=== PATIENT | male | born 1960 | race Caucasian/White ===

== ENCOUNTER 2023-01-06 14:41 | Observation (INO) ==
[2023-01-06] MEDS ORDERED: MoRPHine SULFATE 2 MG/ML CARP IV STA (15:26)
[2023-01-06] MEDS ORDERED: ONDANSETRON INJ 2 MG/ML 2 ML VIAL IV STA (15:26)
--- NOTE | 2023-01-06 15:30 | Emergency Department Note ---
History of Present Illness General Chief complaint: Rib Injury/Pain Stated complaint: LUNG PROBLEMS Time Seen by Provider: 01/06/23 15:15 History of Present Illness Maximum Pain Intensity: 6 This is a 62-year-old male that presents to the emergency department via officer lieutenant escort x2 with complaints of "left rib pain". Patient notes that last evening around 10:30 PM he tripped on a ladder causing him to fall forward. He notes that he struck the left side of the ribs against the toilet and the head against the sink. He notes left-sided rib pain since that time. Patient denies loss of consciousness. He notes pain with a deep breath to the left flank region. Current pain 03/26. He denies any blood in the stool or urine. He also since that time notes a minor headache and some neck pain. Home Medications Medication Instructions Recorded Confirmed Type aspirin 81 mg capsule 81 mg PO DAILY 01/03/23 01/06/23 History ciclesonide 80 mcg/actuation 2 puff inhalation BID 01/03/23 01/06/23 History aerosol inhaler (Alvesco) divalproex 500 mg tablet,delayed 500 mg PO DAILY 01/03/23 01/06/23 History release duloxetine 30 mg capsule,delayed 30 mg PO DAILY 01/03/23 01/06/23 History release metformin 1,000 mg tablet 1,000 mg PO BID 01/03/23 01/06/23 History tamsulosin 0.4 mg capsule (Flomax) 0.4 mg PO DAILY 01/03/23 01/06/23 History albuterol sulfate 90 mcg/actuation 2 puff inhalation QID PRN 01/06/23 01/06/23 History aerosol inhaler Shortness Of Breath Or Wheezing atorvastatin 20 mg tablet 20 mg PO DAILY 01/06/23 01/06/23 History Allergies Allergy/AdvReac Type Severity Reaction Status Date / Time No Known Allergies Allergy Verified 01/06/23 17:15 Past Med/Surg History Medical History Antisocial personality disorder BPH w/o urinary obs/LUTS Mild intermittent asthma Type 2 diabetes mellitus Xerosis cutis Social History Smoking Status: Never smoker Feels Safe at Home: Yes Review of Systems A total of 10 systems reviewed and were otherwise negative Physical Exam Vital Signs Vital Signs - 24 hr 01/06/23 14:44 01/06/23 17:14 Temperature 37.0 C Temperature Source Temporal Artery Scan Pulse Rate 75 Pulse Rate [Finger] 70 Respiratory Rate 18 16 Respiratory Effort / Characteristics Non-Labored Spontaneous Respiratory Depth Normal Normal Blood Pressure 120/76 Blood Pressure [Right Arm] 111/74 Blood Pressure Mean 90 Blood Pressure Mean [Right Arm] 86 Blood Pressure Position Sitting Pulse Oximetry 95 93 Oxygen Delivery Method Room Air Room Air Sepsis Recent Fever Within 48 Hours No Sepsis New/Unexplained Change in Mental Status No Sepsis Action Taken by Nursing No Action Required VITAL SIGNS - Vital signs and triage nursing notes were reviewed. Stable and afebrile. GENERAL -62-year-old male appearing his stated age. Communicates well with provider and answers questions appropriately. SKIN - Gross examination of the entire body surface demonstrates no lacerations to the body surface. HEAD - Normocephalic, Atraumatic. No Rueda's Sign or Raccoon's Eyes. No depressed skull fractures palpable. EYES - PERRL with EOMI bilaterally. Without subconjunctival hemorrhage. Palpebral conjunctiva pink and moist with no injection. EARS - No deformities of external structures noted on gross examination bilaterally. No hemotympanum present. No tympanic perforation noted. Handle of malleus, umbo, cone of light, pars tensa/flaccid all easily visualized. NOSE - Midline and without cyanosis. No epistaxis or clear watery discharge noted. Septum midline without deviation. No septal hematoma noted. No overlying ecchymosis noted. MOUTH/OROPHARYNX - Without perioral cyanosis. Tongue midline with equal elevation of palate bilaterally. No blood noted in the oropharynx. No tonsillar hypertrophy, erythema, or exudates noted. No dental fractures noted. NECK - No tenderness to palpation over the cervical spinous processes. No cervi jennifer paraspinal muscle tenderness noted. LUNGS - Chest wall symmetric without accessory muscle use, intercostals retractions, or central cyanosis. No flail chest or depressed fractures noted. Left lateral rib tenderness. No crepitus. Normal vesicular breath sounds CTA B/L. No wheezes, rales, or rhonchi appreciated. CARDIAC - RRR with S1/S2. No murmur, rubs, or gallops appreciated. ABDOMEN - Abdominal contour normal and without pulsations or visible masses. BS normoactive all four quadrants. No rebound tenderness or guarding noted. Negative Buffalo's or Sainz Llanos's Signs. No tenderness, palpable masses, hepatosplenomegaly, or ascites noted. EXTREMITIES - No gross deformities noted of the extremities. No tenderness to palpation of the extremities. +5/5 strength noted in UE/LE bilaterally. NEUROLOGIC - Cranial nerves II through XII grossly intact. PSYCH - A&O, and cooperates fully with examiner. Pt is very pleasant and interacts well with examiner. Course Administered Medications Acetaminophen (Acetaminophen 325 Mg Tab) 650 mg PO Q6H [facility] Stop: 02/05/23 18:49 Last Admin: 01/06/23 19:10 Dose: 650 mg Documented By: MAINE Insulin Aspart (Insulin Aspart Per Unit Charge) 0 units SC ACHS ISAIAH Stop: 02/05/23 20:59 Last Admin: 01/06/23 20:12 Dose: 2 units Documented By: MAINE Co-signed By: FREDERICK Insulin Glargine (Lantus Per Unit Charge) 5 units SQ BID ISAIAH Stop: 02/05/23 20:59 Last Admin: 01/06/23 20:13 Dose: 5 units Documented By: MAINE Co-signed By: FREDERICK Lidocaine (Lidocaine 5% 1 Patch) 1 patch TD QAM [facility] Stop: 02/05/23 18:44 Last Admin: 01/06/23 19:10 Dose: 1 patch Documented By: MAINE Miscellaneous (Remove Lidoderm Patch) 1 each N/A DAILY@2100 [facility] Stop: 02/05/23 20:59 Last Admin: 01/06/23 20:02 Dose: Not Given Documented By: MAINE Morphine Sulfate (Morphine Sulfate 2 Mg/Ml Carp) 2 mg IV Q4H PRN PRN Reason: Pain (pain 5,6,7+) Stop: 01/20/23 18:44 Last Admin: 01/06/23 21:42 Dose: 2 mg Documented By: RLP Discontinued Medications Morphine Sulfate (Morphine Sulfate 2 Mg/Ml Carp) 2 mg IV NOW STA Stop: 01/06/23 15:27 Last Admin: 01/06/23 15:53 Dose: 2 mg Documented By: ROSEANN Ondansetron HCl (Ondansetron Inj 2 Mg/Ml 2 Ml Vial) 4 mg IV NOW STA Stop: 01/06/23 15:27 Last Admin: 01/06/23 15:53 Dose: 4 mg Documented By: ROSEANN Medical Decision Making Laboratory Data 01/06/23 15:39 01/06/23 15:39 Lab Results 01/06/23 01/06/23 01/06/23 Range/Units 15:39 15:39 15:48 WBC 6.26 (4.8-10.8) K/ul RBC 4.64 L (4.70-6.10) M/uL Hgb 14.4 (14.0-18.0) g/dl POC Hgb 14.6 (14.0-18.0) g/dl Hct 40.9 L (42.0-52.0) % POC Hct 43 (42-52) % MCV 88.1 (80.0-100.0) fL MCH 31.0 (25.0-34.0) pg MCHC 35.2 (32.0-36.0) g/dL RDW Std Deviation 43.9 (36.4-46.3) fL RDW Coeff of Ingrid 13.7 (11.5-14.5) % Plt Count 145 (130-400) K/uL MPV 10.5 (9.4-12.4) fL Immature Gran % (Auto) 0.3 % Neut % (Auto) 60.1 % Lymph % (Auto) 24.6 % Bell % (Auto) 13.6 % Eos % (Auto) 0.8 % Baso % (Auto) 0.6 % Neut # (Auto) 3.76 (1.40-6.50) K/uL Lymph # (Auto) 1.54 (1.2-3.4) K/uL Bell # (Auto) 0.85 H (0.11-0.59) K/uL Eos # (Auto) 0.05 (0-0.50) K/uL Baso # (Auto) 0.04 (0-0.2) K/uL Immature Gran # (Auto) 0.02 (0.01-0.20) K/uL POC Sodium 140 (135-144) mmol/L Sodium 139 (136-145) mmol/L POC Potassium 4.2 (3.3-5.0) mmol/L Potassium 4.3 (3.5-5.1) mmol/L POC Chloride 101 (101-112) mmol/L Chloride 103 (98-107) mmol/L Carbon Dioxide 30 (21-32) mmol/L POC Total CO2 30 (24-31) mmol/L Anion Gap 6 (3-11) POC Anion Gap 15.0 L (16-25) mmol/L POC BUN 25 H (7-18) mg/dl BUN 25 H (6-23) mg/dl Creatinine 0.91 (0.6-1.4) mg/dl POC Creatinine 0.9 (0.6-1.3) mg/dl Est Cr Clr Drug Dosing 95.6 ml/min Est GFR ( Amer) 103.6 ml/min Est GFR (Non-Af Amer) 89.4 ml/min BUN/Creatinine Ratio 27.5 H (10-20) Glucose 191 H (70-99(Fasting)) mg/dl POC Glucose (other) 188 H (70-99) mg/dl Calcium 10.0 (8.6-10.3) mg/dl POC Ioniz Calcium Erwin 1.29 (1.12-1.32) mmol/l Total Bilirubin 0.6 (0.2-1.0) mg/dl AST 26 (13-39) U/L ALT 18 (7-52) U/L Alkaline Phosphatase 60 (34-104) U/L Total Protein 6.9 (6.0-8.3) gm/dl Albumin 4.2 (3.4-5.0) gm/dl Globulin 2.7 (2.5-4.0) gm/dl Albumin/Globulin Ratio 1.6 (0.9-2) SARS-CoV-2, RNA, NAAT (NEGATIVE) 01/06/23 Range/Units 17:32 WBC (4.8-10.8) K/ul RBC (4.70-6.10) M/uL Hgb (14.0-18.0) g/dl POC Hgb (14.0-18.0) g/dl Hct (42.0-52.0) % POC Hct (42-52) % MCV (80.0-100.0) fL MCH (25.0-34.0) pg MCHC (32.0-36.0) g/dL RDW Std Deviation (36.4-46.3) fL RDW Coeff of Ingrid (11.5-14.5) % Plt Count (130-400) K/uL MPV (9.4-12.4) fL Immature Gran % (Auto) % Neut % (Auto) % Lymph % (Auto) % Bell % (Auto) % Eos % (Auto) % Baso % (Auto) % Neut # (Auto) (1.40-6.50) K/uL Lymph # (Auto) (1.2-3.4) K/uL Bell # (Auto) (0.11-0.59) K/uL Eos # (Auto) (0-0.50) K/uL Baso # (Auto) (0-0.2) K/uL Immature Gran # (Auto) (0.01-0.20) K/uL POC Sodium (135-144) mmol/L Sodium (136-145) mmol/L POC Potassium (3.3-5.0) mmol/L Potassium (3.5-5.1) mmol/L POC Chloride (101-112) mmol/L Chloride (98-107) mmol/L Carbon Dioxide (21-32) mmol/L POC Total CO2 (24-31) mmol/L Anion Gap (3-11) POC Anion Gap (16-25) mmol/L POC BUN (7-18) mg/dl BUN (6-23) mg/dl Creatinine (0.6-1.4) mg/dl POC Creatinine (0.6-1.3) mg/dl Est Cr Clr Drug Dosing ml/min Est GFR ( Amer) ml/min Est GFR (Non-Af Amer) ml/min BUN/Creatinine Ratio (10-20) Glucose (70-99(Fasting)) mg/dl POC Glucose (other) (70-99) mg/dl Calcium (8.6-10.3) mg/dl POC Ioniz Calcium Erwin (1.12-1.32) mmol/l Total Bilirubin (0.2-1.0) mg/dl AST (13-39) U/L ALT (7-52) U/L Alkaline Phosphatase (34-104) U/L Total Protein (6.0-8.3) gm/dl Albumin (3.4-5.0) gm/dl Globulin (2.5-4.0) gm/dl Albumin/Globulin Ratio (0.9-2) SARS-CoV-2, RNA, NAAT NEGATIVE (NEGATIVE) Imaging Data Radiologist's Impression: Abdomen/Pelvis CT 01/06/23 15:26 CT OF THE ABDOMEN AND PELVIS WITH CONTRAST CLINICAL HISTORY: fall, L lateral chest/flank pain COMPARISON STUDY: None. TECHNIQUE: Following IV administration of 87 mL of Optiray, axial images of the abdomen and pelvis were obtained from the lung bases to the proximal femurs. Images were reviewed in the axial, sagittal, and coronal planes. IV contrast was administered without complication. Automated exposure control was utilized for the study. A dose lowering technique was utilized adhering to the principles of ALARA. FINDINGS: There are acute nondisplaced fractures of the left seventh through 10th ribs. No hemoperitoneum or pneumoperitoneum is present. There is no evidence for traumatic injury to the liver, spleen, adrenal glands, kidneys or pancreas. Multiple bilateral renal lesions reflect cysts. Several subcentimeter renal lesions are too small to characterize. There is no hydronephrosis. Small right renal calculi are present. There are no ureteral calculi. Upper abdominal varices are noted, including perigastric varices. Possible cirrhotic liver. No hepatic lesions are identified. Pancreatic parenchymal calcifications are noted. There is no evidence for a bowel obstruction. A moderate amount of stool within the colon is present. Caliber and wall thickness of small and large bowel are n ormal. The colon is redundant. Infrarenal abdominal aorta is ectatic. The bilateral common iliac arteries are mildly dilated. No acute lumbar spine, pelvic or hip fracture is noted. A moderate L1 compression fracture is old. There are suspected gallstones within the gallbladder. IMPRESSION: 1. No acute traumatic findings within the abdomen or pelvis. 2. Acute fractures of the anterolateral left seventh through 10th ribs. 3. Upper abdominal varices, including perigastric varices. Possible cirrhosis. 4. Cholelithiasis. No evidence for acute cholecystitis. 5. Pancreatic parenchymal calcifications which could indicate chronic pancreatitis. 6. Right-sided nephrolithiasis. ACT 112: Negative or not required by law. Electronically signed by: Alberto Lloyd M.D. 01/06/2023 5:[address] 01/06/23 15:26 CT OF THE CERVICAL SPINE WITHOUT CONTRAST CLINICAL HISTORY: fall, neck pain COMPARISON STUDY: No previous studies for comparison. TECHNIQUE: Helical axial images of the cervical spine were obtained without IV contrast. Sagittal and coronal reconstructions were viewed. Automated exposure control was utilized for the study. A dose lowering technique was utilized adhering to the principles of ALARA. FINDINGS: There is straightening of the cervical lordosis. Vertebral body heights are maintained. No acute cervical spine fracture or subluxation is present. There is no prevertebral edema. Facet joints are intact. Moderate mul tilevel degenerative changes are present. IMPRESSION: No acute cervical spine fracture or subluxation. ACT 112: Negative or not required by law. Electronically signed by: Alberto Lloyd M.D. 01/06/2023 5:[address] 01/06/23 15:26 CT OF THE CHEST WITH IV CONTRAST CLINICAL HISTORY: fall, L lateral chest/flank pain COMPARISON STUDY: No previous studies for comparison. TECHNIQUE: Following IV administration of 87 mL of Optiray, helical axial images of the chest were obtained. Sagittal and coronal reconstructions were viewed as well as maximal intensity projections on an independent 3-D workstation. Automated exposure control was utilized for the study. A dose lowering technique was utilized adhering to the principles of ALARA. FINDINGS: There is no evidence for traumatic injury to the thoracic aorta. The thoracic aorta is dilated, measuring 4.5 cm. There is no thoracic aortic dissection. Central pulmonary arteries are moderately dilated. Note is made of moderate cardiomegaly and coronary artery calcification. There is a trace left pleural effusion. No pneumothorax. There are acute nondisplaced fractures of the anterolateral left seventh through 10th ribs. No acute thoracic spine fracture is present. There is no pulmonary contusion. There is no thoracic lymphadenopathy. Several thyroid nodules are incidentally noted. Bilateral gynecomastia. IMPRESSION: 1. Acute nondisplaced fractures of the anterolateral left seventh through 10th ribs. Trace left pleural effusion. No pneumothorax. 2. No evidence for traumatic injury to the thoracic aorta. 3. Dilatation of the ascending aorta, measuring 4.5 cm. 4. Dilatation of the central pulmonary arteries which raises the possibility of pulmonary arterial hypertension. ACT 112: Negative or not required by law. Electronically signed by: Alberto Lloyd M.D. 01/06/2023 5:[address] 01/06/23 15:[address] DOSE: 3473.26 mGy.cm HISTORY: fall, struck head, headache,neck pain TECHNIQUE: Multiaxial CT images of the head were performed without the use of intravenous contrast. Automated exposure control was utilized for this study. A dose lowering technique was utilized adhering to the principles of ALARA. Comparison: None. Findings: Mild mucosal thickening within the ethmoid air cells and right maxillary sinus. The mastoid air cells are clear. Mild left frontal scalp swelling. The calvarium and skull base are intact. There is no mass, hematoma, midline shift, acute infarct. White matter hypodensity is nonspecific but suggestive of microvascular ischemic change. The ventricles and sulci demonstrate mild age-related involutional changes. Impression: No acute intracranial abnormality. Mild left frontal scalp swelling. ACT 112: Negative or not required by law. Electronically signed by: Thomas Altman M.D. 01/06/2023 5:08 PM MDM Narrative Patient was seen and evaluated as above in room B07. Review was performed of triage nursing notes and vital signs. After obtaining a thorough history and physical examination the above work up was performed. Patient presents to us today status post mechanical fall now with left-sided rib pain. He clinically is well-appearing and nontoxic. Vital signs stable. Options of care were discussed with the patient. IV access was established. Labs were drawn. Patient was medicated with IV morphine for pain and Zofran for nausea. There is no leukocytosis or concerning anemia. No emergent metabolic disturbance. Elevated BUN at 25. Glucose 191. COVID testing negative. Noting the patient's mechanism of injury, ground-level fall but noting that he struck the left side of the ribs and also the head now with headache, neck pain and left rib/flank pain I found it reasonable to proceed with CT imaging to evaluate. CT results as above. The patient does have 4 consecutive left lateral rib fractures. I do believe that further evaluation and management in the inpatient setting is warranted. Patient amenable to plan of care. Case discussed with the hospitalist service. Please refer to further documentation regarding his stay. Case discussed with the attending physician GCS: 15 In the evaluation and treatment of this patient the following differential diagnoses were entertained: Fracture, dislocation, subluxation, contusion, sprain, strain, hemothorax, pneumothorax, splenic injury, among others Impression & Plan Fall, Multiple fractures of ribs Discharge Plan Visit Data Chief Complaint: Rib Injury/Pain Stated Complaint: LUNG PROBLEMS ED Provider: Clayton Singh ED Midlevel Provider: Jerrod Castillo Discharge Problem: Fall, Multiple fractures of ribs Patient Disposition: Admitted As Inpatient Condition: Good Discharge Instructions Interventions: ED Discharge Assessment Last Done: 01/06/23 20:43
[2023-01-06 15:59] LABS: Basophils # (auto) 0.04 K/uL (0-0.2); Basophils % (auto) 0.6 %; Eosinophils # (auto) 0.05 K/uL (0-0.50); Eosinophils % (auto) 0.8 %; Hematocrit (blood only) 40.9 % (42.0-52.0); Hemoglobin 14.4 g/dl (14.0-18.0); Immature Granulocytes # (auto) 0.02 K/uL (0.01-0.20); Immature Granulocytes % (auto) 0.3 %; Lymphocytes # (auto) 1.54 K/uL (1.2-3.4); Lymphocytes % (auto) 24.6 %; Mean Corpuscular Hgb Conc 35.2 g/dL (32.0-36.0); Mean Corpuscular Volume 88.1 fL (80.0-100.0); Mean Platelet Volume 10.5 fL (9.4-12.4); Monocytes # (auto) 0.85 K/uL (0.11-0.59); Monocytes % (auto) 13.6 %; Neutrophils # (auto) 3.76 K/uL (1.40-6.50); Neutrophils % (auto) 60.1 %; Platelet Count 145 K/uL (130-400); RDW Coefficient of Variation 13.7 % (11.5-14.5); RDW Standard Deviation 43.9 fL (36.4-46.3); Red Blood Count 4.64 M/uL (4.70-6.10); White Blood Count 6.26 K/ul (4.8-10.8)
[2023-01-06 16:03] LABS: iSTAT Creatinine 0.9 mg/dl (0.6-1.3); iSTAT Hemoglobin 14.6 g/dl (14.0-18.0); iSTAT Ionized Calcium 1.29 mmol/l (1.12-1.32); iSTAT Potassium 4.2 mmol/L (3.3-5.0)
[2023-01-06 16:15] LABS: Albumin Globulin Ratio 1.6 (0.9-2); Albumin Level 4.2 gm/dl (3.4-5.0); BUN Creatinine Ratio 27.5 (10-20); Bilirubin,Total 0.6 mg/dl (0.2-1.0); Creatinine Clr Calc Pharmacy 95.6 ml/min; Est GFR (African American) 103.6 ml/min; Est GFR (Non-African American) 89.4 ml/min; Globulin 2.7 gm/dl (2.5-4.0); Potassium 4.3 mmol/L (3.5-5.1); Total Protein 6.9 gm/dl (6.0-8.3)
--- NOTE | 2023-01-06 17:07 | CT Scan Report ---
CT OF THE CERVICAL SPINE WITHOUT CONTRAST CLINICAL HISTORY: fall, neck pain COMPARISON STUDY: No previous studies for comparison. TECHNIQUE: Helical axial images of the cervical spine were obtained without IV contrast. Sagittal a nd coronal reconstructions were viewed. Automated exposure control was utilized for the study. A do se lowering technique was utilized adhering to the principles of ALARA. FINDINGS: There is straightening of the cervical lordosis. Vertebral body heights are maintained. No acute cervical spine fracture or subluxation is present. There is no prevertebral edema. Facet joints are intact. Moderate multilevel degenerative changes are present. IMPRESSION: No acute cervical spine fracture or subluxation. ACT 112: Negative or not required by law. Electronically signed by: Alberto Lolyd M.D. 01/06/2023 5:06 PM
--- NOTE | 2023-01-06 17:10 | CT Scan Report ---
HEAD CT NONCONTRAST CT DOSE: 3473.26 mGy.cm HISTORY: fall, struck head, headache,neck pain TECHNIQUE: Multiaxial CT images of the head were performed without the use of intravenous contrast. A utomated exposure control was utilized for this study. A dose lowering technique was utilized adheri ng to the principles of ALARA. Comparison: None. Findings: Mild mucosal thickening within the ethmoid air cells and right maxillary sinus. The mastoid air cells are clear. Mild left frontal scalp swelling. The calvarium and skull base are intact. Ther e is no mass, hematoma, midline shift, acute infarct. White matter hypodensity is nonspecific but sug gestive of microvascular ischemic change. The ventricles and sulci demonstrate mild age-related invol utional changes. Impression: No acute intracranial abnormality. Mild left frontal scalp swelling. ACT 112: Negative or not required by law. Electronically signed by: Thomas Altman M.D. 01/06/2023 5:08 PM
--- NOTE | 2023-01-06 17:14 | CT Scan Report ---
CT OF THE CHEST WITH IV CONTRAST CLINICAL HISTORY: fall, L lateral chest/flank pain COMPARISON STUDY: No previous studies for comparison. TECHNIQUE: Following IV administration of 87 mL of Optiray, helical axial images of the chest were o btained. Sagittal and coronal reconstructions were viewed as well as maximal intensity projections o n an independent 3-D workstation. Automated exposure control was utilized for the study. A dose low ering technique was utilized adhering to the principles of ALARA. FINDINGS: There is no evidence for traumatic injury to the thoracic aorta. The thoracic aorta is dil ated, measuring 4.5 cm. There is no thoracic aortic dissection. Central pulmonary arteries are modera tely dilated. Note is made of moderate cardiomegaly and coronary artery calcification. There is a tra ce left pleural effusion. No pneumothorax. There are acute nondisplaced fractures of the anterolatera l left seventh through 10th ribs. No acute thoracic spine fracture is present. There is no pulmonary contusion. There is no thoracic lymphadenopathy. Several thyroid nodules are incidentally noted. Bila teral gynecomastia. IMPRESSION: 1. Acute nondisplaced fractures of the anterolateral left seventh through 10th ribs. Trace left pleur al effusion. No pneumothorax. 2. No evidence for traumatic injury to the thoracic aorta. 3. Dilatation of the ascending aorta, measuring 4.5 cm. 4. Dilatation of the central pulmonary arteries which raises the possibility of pulmonary arterial hy pertension. ACT 112: Negative or not required by law. Electronically signed by: Alberto Lloyd M.D. 01/06/2023 5:13 PM
--- NOTE | 2023-01-06 17:23 | CT Scan Report ---
CT OF THE ABDOMEN AND PELVIS WITH CONTRAST CLINICAL HISTORY: fall, L lateral chest/flank pain COMPARISON STUDY: None. TECHNIQUE: Following IV administration of 87 mL of Optiray, axial images of the abdomen and pelvis we re obtained from the lung bases to the proximal femurs. Images were reviewed in the axial, sagittal, and coronal planes. IV contrast was administered without complication. Automated exposure control wa s utilized for the study. A dose lowering technique was utilized adhering to the principles of ALARA . FINDINGS: There are acute nondisplaced fractures of the left seventh through 10th ribs. No hemoperito neum or pneumoperitoneum is present. There is no evidence for traumatic injury to the liver, spleen, adrenal glands, kidneys or pancreas. Multiple bilateral renal lesions reflect cysts. Several subcenti meter renal lesions are too small to characterize. There is no hydronephrosis. Small right renal calc shayy are present. There are no ureteral calculi. Upper abdominal varices are noted, including perigast mira varices. Possible cirrhotic liver. No hepatic lesions are identified. Pancreatic parenchymal calc ifications are noted. There is no evidence for a bowel obstruction. A moderate amount of stool within the colon is present. Caliber and wall thickness of small and large bowel are normal. The colon is r edundant. Infrarenal abdominal aorta is ectatic. The bilateral common iliac arteries are mildly dilat ed. No acute lumbar spine, pelvic or hip fracture is noted. A moderate L1 compression fracture is old . There are suspected gallstones within the gallbladder. IMPRESSION: 1. No acute traumatic findings within the abdomen or pelvis. 2. Acute fractures of the anterolateral left seventh through 10th ribs. 3. Upper abdominal varices, including perigastric varices. Possible cirrhosis. 4. Cholelithiasis. No evidence for acute cholecystitis. 5. Pancreatic parenchymal calcifications which could indicate chronic pancreatitis. 6. Right-sided nephrolithiasis. ACT 112: Negative or not required by law. Electronically signed by: Alberto Lloyd M.D. 01/06/2023 5:22 PM
[2023-01-06] MEDS ORDERED: CARBOHYDRATES FOR HYPOGLYCEMIA PO PRN (18:34)
[2023-01-06] MEDS ORDERED: GLUCOSE 10 TAB/TUBE PO PRN (18:34)
[2023-01-06] MEDS ORDERED: DEXTROSE 50% 50 ML SYRINGE IV PRN (18:34)
[2023-01-06] MEDS ORDERED: GLUCOSE 40% GEL 15 GM TUBE PO PRN (18:34)
[2023-01-06] MEDS ORDERED: GLUCAGON FOR INJ 1 MG VIAL SQ PRN (18:34)
--- NOTE | 2023-01-06 18:36 | History & Physical Report ---
Date of Service January 06, 2023 Assessment & Plan (1) Fall: Plan: -Admit to med/surge -The patient is currently afebrile, hemodynamically stable, and stable on RA -Sustained a mechanical fall after tripping on the ladder in his cell, hit the left side of his ribs on his toilet and the left forehead on his toilet -No LOC, alert and oriented -Found to have non-displaced Acute fractures of the anterolateral left seventh through 10th ribs on CT today, otherwise no other acute trauma -CT of the abd/pelvis did show Upper abdominal varices, including perigastric varices and Possible cirrhosis. >LFT's WNL, would recommend outpatient referral to GI/Hepatology for further evaluation -Will give the following pain regimen: >Lidocaine patch, q6h scheduled PO tylenol, 2 mg IV morphine q4h prn severe pain -Ensure the patient continues to use his incentive spirometer to avoid development of pneumonia -BL SCD's for DVT PPX tonight, will hold chemical PPX with recent trauma -AM CBC and BMP (2) BPH w/o urinary obs/LUTS: Plan: -Continue flomax (3) Mild intermittent asthma: Plan: -Continue albuterol and incentive spirometry (4) Antisocial personality disorder: Plan: -Continue Duloxetine and Divalproex for now -Divalproex does have side effects associated with hepatotoxicity, may need to consider discontinuing with CT findings of possible cirrhosis today (5) Type 2 diabetes mellitus: Plan: -Hold metformin -Monitor BSG ACHS, goal is 110-140 -5 units lantus BID, correction factor of 40 with carb ratio of 15 -DMII diet (6) Other hyperlipidemia: Plan: -Continue statin Plan The patient was discussed with Dr. Quispe at the time of the admission History of Present Illness Chief Complaint: Mechanical fall Primary Care Provider: [facility] Catracho Tapia is a 62 year old male inmate at [facility] ([place] with a PMH significant for DM II, hyperlipidemia, opioid use disorder, mild intermittent asthma, and BPH who presented to the [facility] ED on 01/06/23 due to a mechanical fall sustained yesterday. In the ED the patient was found to be afebrile, hemodynamically stable, and stable on RA. Labs including CBC, CMP, and Covid screen were grossly unremarkable. CT of the head was read as "No acute intracranial abnormality. Mild left frontal scalp swelling.". Chest CT was read as "1. Acute nondisplaced fractures of the anterolateral left seventh through 10th ribs. Trace left pleural effusion. No pneumothorax. 2. No evidence for traumatic injury to the thoracic aorta. 3. Dilatation of the ascending aorta, measuring 4.5 cm. 4. Dilatation of the central pulmonary arteries which raises the possibility of pulmonary arterial hypertension.". CT of the cervical spine was read as "No acute cervical spine fracture or subluxation.". CT of the abd/pelvis with contrast was read as "1. No acute traumatic findings within the abdomen or pelvis. 2. Acute fractures of the anterolateral left seventh through 10th ribs. 3. Upper abdominal varices, including perigastric varices. Possible cirrhosis. 4. Cholelithiasis. No evidence for acute cholecystitis. 5. Pancreatic parenchymal calcifications which could indicate chronic pancreatitis. 6. Right- sided nephrolithiasis.". Prior to admission the patient was given 2 mg IV morphine and 4 mg IV zofran. At the time of the exam the patient was lying in bed in no acute distress with 2 half-way guards at bedside. The patient states that he has chronic back pain and had been using a walker for ambulation. He has been working hard to improve his mobility and had recently been able to ambulate with the use of a cane. Last night he was in his cell walking and accidentally tripped on his bedside ladder. He states that when he fell he hit the left chest on his toilet and his left forehead on the sink. He denies losing consciousness during or after the fall. Since the fall the patient has been experiencing severe left- sided chest pain in the distribution of his rib fractures. He denies changes in vision, hearing, taste, and smell since the fall. He experiences left-sided chest pain with moderate-deep inspiration. He denies any cough or hemoptysis. He is experiencing some left-sided abd pain with palpation but has not not experienced recent nausea or vomiting, He denies recent dysuria, hematuria, melena, or blood bowel movements. He is a former smoker but has switched to an E-Ciggarett. I instructed him to make sure he uses his incentive spirometer every hour while here to prevent the developed of pneumonia and he expressed understanding. Please refer to Dr. Quispe's attestation for any changes to the treatment plan Allergies Allergy/AdvReac Type Severity Reaction Status Date / Time No Known Allergies Allergy Verified 01/06/23 17:15 Home Medications Medication Instructions Recorded Confirmed Type aspirin 81 mg capsule 81 mg PO DAILY 01/03/23 01/06/23 History ciclesonide 80 mcg/actuation 2 puff inhalation BID 01/03/23 01/06/23 History aerosol inhaler (Alvesco) divalproex 500 mg tablet,delayed 500 mg PO DAILY 01/03/23 01/06/23 History release duloxetine 30 mg capsule,delayed 30 mg PO DAILY 01/03/23 01/06/23 History release metformin 1,000 mg tablet 1,000 mg PO BID 01/03/23 01/06/23 History tamsulosin 0.4 mg capsule (Flomax) 0.4 mg PO DAILY 01/03/23 01/06/23 History albuterol sulfate 90 mcg/actuation 2 puff inhalation QID PRN 01/06/23 01/06/23 History aerosol inhaler Shortness Of Breath Or Wheezing atorvastatin 20 mg tablet 20 mg PO DAILY 01/06/23 01/06/23 History Past Med/Surg History Medical History Antisocial personality disorder BPH w/o urinary obs/LUTS Mild intermittent asthma Type 2 diabetes mellitus Xerosis cutis Social History Smoking Status: Current every day smoker Cigarettes Per Day: 1; Second Hand Exposure: No; Do You Dip or Chew Tobacco: No; Tobacco Cessation Education Requested by Patient: No Hx Alcohol Use: No Hx Substance Use: No Preferred Language: Belarusian Communication Ability: Effective 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 Physical Exam Physical Exam: Physical Exam: General: In no acute distress, stated age, well-nourished, good hygiene HEENT: Normocephalic, patient with small area of erythema with mild swelling on the left forehead without acute signs of bleeding otherwise atraumatic, no scleral icterus, pupils around round, symmetrical, and reactive to light, moist mucus membranes, trachea midline, no thyromegaly Chest/Pulm: No bruising observed on inspection, No respiratory distress, symmetrical chest expansion, clear breath sounds throughout Cardiac: RRR, no murmurs noted Abdomen: Negative for ascites and bruising, normoactive bowel sounds, soft, non-tender to palpation throughout Musculoskeletal: Non-tender to palpation of the scalp, cevrical spine, and thoracic spine, chronic pain noted in the lumbar spine, pain to palpation of the left lower chest, no step offs, crepitus, or asymmetric breathing noted, no acute trauma in the hips, upper extremities and lower extremities Extremities: Radial, dorsalis pedis, and posterior tibial pulses are intact and symmetrical, no edema noted in the BL LE's Skin: As described above Neuro: Alert and oriented to person, place, month, year, and president, no focal defects, CN II-XII tested and intact, no tremors noted Psych: No acute distress, calm and cooperative during the exam Results & Data Results & Data Vital Signs (Past 12 Hours) Vital Signs Temp Pulse Pulse Resp BP BP Pulse Ox 01/06/23 17:14 70 16 111/74 93 01/06/23 14:44 37.0 C 75 18 120/76 95 O2 Del Method 01/06/23 17:14 Room Air 01/06/23 14:44 Room Air Laboratory Results Abnormal lab results 01/06/23 01/06/23 01/06/23 Range/Units 15:39 15:39 15:48 RBC 4.64 L (4.70-6.10) M/uL Hct 40.9 L (42.0-52.0) % Harper # (Auto) 0.85 H (0.11-0.59) K/uL POC Anion Gap 15.0 L (16-25) mmol/L POC BUN 25 H (7-18) mg/dl BUN 25 H (6-23) mg/dl BUN/Creatinine Ratio 27.5 H (10-20) Glucose 191 H (70-99(Fasting)) mg/dl POC Glucose (other) 188 H (70-99) mg/dl Diagnostic Findings Abdomen/Pelvis CT 01/06/23 15:26 CT OF THE ABDOMEN AND PELVIS WITH CONTRAST CLINICAL HISTORY: fall, L lateral chest/flank pain COMPARISON STUDY: None. TECHNIQUE: Following IV administration of 87 mL of Optiray, axial images of the abdomen and pelvis were obtained from the lung bases to the proximal femurs. Images were reviewed in the axial, sagittal, and coronal planes. IV contrast was administered without complication. Automated exposure control was utilized for the study. A dose lowering technique was utilized adhering to the principles of ALARA. FINDINGS: There are acute nondisplaced fractures of the left seventh through 10th ribs. No hemoperitoneum or pneumoperitoneum is present. There is no evidence for traumatic injury to the liver, spleen, adrenal glands, kidneys or pancreas. Multiple bilateral renal lesions reflect cysts. Several subcentimeter renal lesions are too small to characterize. There is no hydronephrosis. Small right renal calculi are present. There are no ureteral calculi. Upper abdominal varices are noted, including perigastric varices. Possible cirrhotic liver. No hepatic lesions are identified. Pancreatic parenchymal calcifications are noted. There is no evidence for a bowel obstruction. A moderate amount of stool within the colon is present. Caliber and wall thickness of small and large bowel are normal. The colon is redundant. Infrarenal abdominal aorta is ectatic. The bilateral common iliac arteries are mildly dilated. No acute lumbar spine, pelvic or hip fracture is noted. A moderate L1 compression fracture is old. There are suspected gallstones within the gallbladder. IMPRESSION: 1. No acute traumatic findings within the abdomen or pelvis. 2. Acute fractures of the anterolateral left seventh through 10th ribs. 3. Upper abdominal varices, including perigastric varices. Possible cirrhosis. 4. Cholelithiasis. No evidence for acute cholecystitis. 5. Pancreatic parenchymal calcifications which could indicate chronic pancreatitis. 6. Right-sided nephrolithiasis. ACT 112: Negative or not required by law. Electronically signed by: Alberto Lloyd M.D. 01/06/2023 5:[address] 01/06/23 15:26 CT OF THE CERVICAL SPINE WITHOUT CONTRAST CLINICAL HISTORY: fall, neck pain COMPARISON STUDY: No previous studies for comparison. TECHNIQUE: Helical axial images of the cervical spine were obtained without IV contrast. Sagittal and coronal reconstructions were viewed. Automated exposure control was utilized for the study. A dose lowering technique was utilized adhering to the principles of ALARA. FINDINGS: There is straightening of the cervical lordosis. Vertebral body heights are maintained. No acute cervical spine fracture or subluxation is present. There is no prevertebral edema. Facet joints are intact. Moderate multilevel degenerative changes are present. IMPRESSION: No acute cervical spine fracture or subluxation. ACT 112: Negative or not required by law. Electronically signed by: Alberto Lloyd M.D. 01/06/2023 5:[address] 01/06/23 15:26 CT OF THE CHEST WITH IV CONTRAST CLINICAL HISTORY: fall, L lateral chest/flank pain COMPARISON STUDY: No previous studies for comparison. TECHNIQUE: Following IV administration of 87 mL of Optiray, helical axial images of the chest were obtained. Sagittal and coronal reconstructions were viewed as well as maximal intensity projections on an independent 3-D workstation. Automated exposure control was utilized for the study. A dose lowering technique was utilized adhering to the principles of ALARA. FINDINGS: There is no evidence for traumatic injury to the thoracic aorta. The thoracic aorta is dilated, measuring 4.5 cm. There is no thoracic aortic disse ction. Central pulmonary arteries are moderately dilated. Note is made of moderate cardiomegaly and coronary artery calcification. There is a trace left pleural effusion. No pneumothorax. There are acute nondisplaced fractures of the anterolateral left seventh through 10th ribs. No acute thoracic spine fracture is present. There is no pulmonary contusion. There is no thoracic lymphadenopathy. Several thyroid nodules are incidentally noted. Bilateral gynecomastia. IMPRESSION: 1. Acute nondisplaced fractures of the anterolateral left seventh through 10th ribs. Trace left pleural effusion. No pneumothorax. 2. No evidence for traumatic injury to the thoracic aorta. 3. Dilatation of the ascending aorta, measuring 4.5 cm. 4. Dilatation of the central pulmonary arteries which raises the possibility of pulmonary arterial hypertension. ACT 112: Negative or not required by law. Electronically signed by: Alberto Lloyd M.D. 01/06/2023 5:[address] 01/06/23 15:[address] DOSE: 3473.26 mGy.cm HISTORY: fall, struck head, headache,neck pain TECHNIQUE: Multiaxial CT images of the head were performed without the use of intravenous contrast. Automated exposure control was utilized for this study. A dose lowering technique was utilized adhering to the principles of ALARA. Comparison: None. Findings: Mild mucosal thickening within the ethmoid air cells and right maxillary sinus. The mastoid air cells are clear. Mild left frontal scalp swelling. The calvarium and skull base are intact. There is no mass, hematoma, midline shift, acute infarct. White matter hypodensity is nonspecific but suggestive of microvascular ischemic change. The ventricles and sulci demonstrate mild age-related involutional changes. Impression: No acute intracranial abnormality. Mild left frontal scalp swelling. ACT 112: Negative or not required by law. Electronically signed by: Thomas Altman M.D. 01/06/2023 5:08 PM ECG Additional Comments: No ECG available at the time of the admission, will obtain one now Code Status & VTE Plan Code Status Full code VTE Prophylaxis Plan VTE Prophylaxis will be ordered: Yes Supervising Physician Co-Signing Physician Notes I personally saw and examined the patient. I verified all mendez points and agree with Jaya Wetzel PA-C with the following exceptions and/or additions: 62 year old male presents with left chest pain after mechanical fall and found to have 4 rib fractures in the ER. No LOC. O/E HS RRR, no murmurs, Chest CTAB, pain on palpation of left side of chest, Abdo SNT, no pain on int/ext rotation of hips, no wrist pain on movement A/P 4 rib fractures - non-displaced, no high ribs effected, unilateral, only mild hypoxia present, consult pain management to consider intercostal nerve block, incentive spirometer PG Care Time/CCT Total # of Minutes Spent Total Time Spent with Patient: Total time spent is greater than 50% in coordination of care (as documented) at patient's floor/unit and/or counseling patient: Coding [place] [address] INT INP/OBS CARE 3/75MIN Patient Type Established Medical Decision Making High Complexity Diagnoses Fall W19.XXXA BPH w/o urinary obs/LUTS N40.0 Mild intermittent asthma J45.20 Antisocial personality disorder F60.2 Type 2 diabetes mellitus E11.9 Other hyperlipidemia E78.49
[2023-01-06] MEDS: LIDOCAINE 5% 1 PATCH TD SCH (19:10)
[2023-01-06] MEDS: ACETAMINOPHEN 325 MG TAB PO SCH (19:10)
[2023-01-06] MEDS: INSULIN ASPART PER UNIT CHARGE SC SCH (20:12)
[2023-01-06] MEDS: LANTUS PER UNIT CHARGE SQ SCH (20:13)
[2023-01-06] MEDS ORDERED: ALBUTEROL HFA 8 GM INHALER INH PRN (21:16)
[2023-01-06] MEDS: MoRPHine SULFATE 2 MG/ML CARP IV PRN (21:42)
[2023-01-06 23:06] LABS: Appearance Urine Clear (Clear); Bacteria Urine Automated Negative (Negative); Bilirubin Urine Negative (Negative); Blood Urine Negative (Negative); Cast Urine Automated 0 /lpf (0-5); Color Urine Yellow; Epithelial Cell Urine Auto 0-5 /lpf (0-5); Glucose Urine UA Negative (Negative); Ketones Urine Negative (Negative); Leukocyte Esterase Urine Trace (Negative); Nitrite Urine Negative (Negative); Protein Urine Negative (Negative); RBC Urine Automated 0-4 /hpf (0-4); Specific Gravity Urine 1.038 (1.000-1.030); Urobilinogen Urine Negative (Negative); pH Urine 5.5 (4.5-7.5)
[2023-01-07] MEDS: ACETAMINOPHEN 325 MG TAB PO SCH ×3 (00:12→12:05)
[2023-01-07] MEDS: MoRPHine SULFATE 2 MG/ML CARP IV PRN ×2 (05:21→14:37)
[2023-01-07 07:35] LABS: Hematocrit (blood only) 40.9 % (42.0-52.0); Mean Corpuscular Hemoglobin 30.7 pg (25.0-34.0); Mean Corpuscular Hgb Conc 34.2 g/dL (32.0-36.0); Mean Corpuscular Volume 89.7 fL (80.0-100.0); Mean Platelet Volume 10.2 fL (9.4-12.4); Platelet Count 132 K/uL (130-400); RDW Coefficient of Variation 13.6 % (11.5-14.5); RDW Standard Deviation 44.6 fL (36.4-46.3); Red Blood Count 4.56 M/uL (4.70-6.10); White Blood Count 5.56 K/ul (4.8-10.8)
[2023-01-07 08:01] LABS: BUN Creatinine Ratio 25.4 (10-20); Creatinine Clr Calc Pharmacy 117.8 ml/min; Est GFR (African American) 115.7 ml/min; Est GFR (Non-African American) 99.9 ml/min; Potassium 4.2 mmol/L (3.5-5.1)
[2023-01-07] MEDS: INSULIN ASPART PER UNIT CHARGE SC SCH ×2 (08:47→12:25)
[2023-01-07] MEDS: LIDOCAINE 5% 1 PATCH TD SCH (08:48)
[2023-01-07] MEDS: LANTUS PER UNIT CHARGE SQ SCH (08:48)
[2023-01-07] MEDS ORDERED: DIVALPROEX DELAY RELEASE 500 MG TAB PO SCH (09:00)
[2023-01-07] MEDS ORDERED: ATORVASTATIN 20 MG TAB PO SCH (09:00)
[2023-01-07] MEDS ORDERED: TAMSULOSIN HCL 0.4 MG CAP PO SCH (09:00)
[2023-01-07] MEDS ORDERED: DULoxetine HCL 30 MG CAP PO SCH (09:00)
[2023-01-07] MEDS ORDERED: ASPIRIN 81 MG ECTAB PO SCH (09:00)
[2023-01-07] MEDS ORDERED: FLUTICASONE FUROATE 200MCG 14 PUFFS/INHALER INH SCH (09:00)
--- NOTE | 2023-01-07 11:57 | Pain Management Consultation ---
Date of Consultation January 07, 2023 Assessment & Plan (1) Multiple fractures of ribs: Encounter type: initial encounter Fracture type: closed Laterality: left Qualified Code(s): S22.42XA - Multiple fractures of ribs, left side, initial encounter for closed fracture (2) Fall: (3) Opioid use disorder: Plan 1. I have ordered the patient Tramadol 50 mg x 4 hours PRN pain. Side effect profile reviewed. 2. Patient does have a significant history of opioid abuse disorder. He was on Oxycodone 30mg #240 tablets each month for 15 years for chronic pain complaints. Off medications for the last 2 years due to incarceration. 3. Intercostal nerve blocks were discussed but a 4 level intercostal nerve block does have increase risk of pneumothorax. Procedure could be considered but deferred for now and will attempt medication management. 4. Morphine 2mg x 4 hours PRN breakthrough pain will remain ordered. He is aware that he is to restrict his use of the medication in preparation for discharge back to [facility]. 5. Continue with Lidocaine patch. Thank you for the consultation. History of Present Illness Reason for Consultation: Chest pain Attending Physician: David Arana MD History of Present Illness Mr. Tapia is a 62 year old prisoner that tripped over a ladder in his [facility] cell and sustained left 7-10 nondisplaced rib fractures. The pain is described as a deep aching along the left lateral chest wall. Pain is increased with deep inhalation and twisting. He has been using incentive spirometer as directed. Patient rates his pain 6/10 currently. He has received 6mg of IV Morphine (2mg x 3) over the last 15 hours with moderate pain relief and without side effects. No constipation, drowsiness, confusion. Allergies Allergy/AdvReac Type Severity Reaction Status Date / Time No Known Allergies Allergy Verified 01/06/23 17:15 Home Medications Medication Instructions Recorded Confirmed Type aspirin 81 mg capsule 81 mg PO DAILY 01/03/23 01/06/23 History ciclesonide 80 mcg/actuation 2 puff inhalation BID 01/03/23 01/06/23 History aerosol inhaler (Alvesco) divalproex 500 mg tablet,delayed 500 mg PO DAILY 01/03/23 01/06/23 History release duloxetine 30 mg capsule,delayed 30 mg PO DAILY 01/03/23 01/06/23 History release metformin 1,000 mg tablet 1,000 mg PO BID 01/03/23 01/06/23 History tamsulosin 0.4 mg capsule (Flomax) 0.4 mg PO DAILY 01/03/23 01/06/23 History albuterol sulfate 90 mcg/actuation 2 puff inhalation QID PRN 01/06/23 01/06/23 History aerosol inhaler Shortness Of Breath Or Wheezing atorvastatin 20 mg tablet 20 mg PO DAILY 01/06/23 01/06/23 History Patient History Medical History Antisocial personality disorder BPH w/o urinary obs/LUTS Mild intermittent asthma Type 2 diabetes mellitus Xerosis cutis Social History Smoking Status: Current every day smoker Cigarettes Per Day: 1; Second Hand Exposure: No; Do You Dip or Chew Tobacco: No; Tobacco Cessation Education Requested by Patient: No Hx Alcohol Use: No Hx Substance Use: No Preferred Language: Tamazight Communication Ability: Effective 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 Patient does not appear in any acute distress. HEAD/FACE: Normocephalic and atraumatic. EYES: No drainage or conjunctival injection. ENT: Nose without bleeding or discharge. Oral mucosa moist. NECK: Full ROM without apparent pain. No swelling or masses noted. RESPIRATORY: Patient with unlabored breathing. No signs of respiratory distress. CHEST/AXILLA: Chest movement symmetrical. There is tenderness along the left lateral chest wall. ABDOMEN/GI: Mild distension BACK: Moves without difficulty SKIN: [place], warm and dry. No rash noted. MS/EXTREMITY: No swelling, no deformities. Moving extremities appropriately. NEURO: Alert and appears oriented. Speech is fluent. Cranial Nerves are grossly intact. PSYCH: Alert, pleasant, affect is calm Results (Pain Clinic) Diagnostic Review CT Findings: CT OF THE CHEST WITH IV CONTRAST CLINICAL HISTORY: fall, L lateral chest/flank pain COMPARISON STUDY: No previous studies for comparison. TECHNIQUE: Following IV administration of 87 mL of Optiray, helical axial images of the chest were obtained. Sagittal and coronal reconstructions were viewed as well as maximal intensity projections on an independent 3-D workstation. Automated exposure control was utilized for the study. A dose lowering technique was utilized adhering to the principles of ALARA. FINDINGS: There is no evidence for traumatic injury to the thoracic aorta. The thoracic aorta is dilated, measuring 4.5 cm. There is no thoracic aortic dissection. Central pulmonary arteries are moderately dilated. Note is made of moderate cardiomegaly and coronary artery calcification. There is a trace left pleural effusion. No pneumothorax. There are acute nondisplaced fractures of the anterolateral left seventh through 10th ribs. No acute thoracic spine fracture is present. There is no pulmonary contusion. There is no thoracic lymphadenopathy. Several thyroid nodules are incidentally noted. Bilateral gynecomastia. IMPRESSION: 1. Acute nondisplaced fractures of the anterolateral left seventh through 10th ribs. Trace left pleural effusion. No pneumothorax. 2. No evidence for traumatic injury to the thoracic aorta. 3. Dilatation of the ascending aorta, measuring 4.5 cm. 4. Dilatation of the central pulmonary arteries which raises the possibility of pulmonary arterial hypertension. ACT 112: Negative or not required by law. Electronically signed by: Alberto Lloyd M.D. 01/06/2023 5:13 PM
[2023-01-07] MEDS: traMADol HCL 50 MG TABLET PO PRN ×2 (12:04→15:59)
--- NOTE | 2023-01-07 15:27 | Discharge Summary ---
Date of Service January 07, 2023 Admission HPI Per Admitting Provider Catracho Tapia is a 62 year old male inmate at [facility] with a PMH significant for DM II, hyperlipidemia, opioid use disorder, mild intermittent asthma, and BPH who presented to the [facility] ED on 01/06/23 due to a mechanical fall sustained 01/05. In the ED the patient was found to be afebrile, hemodynamically stable, and stable on RA. Labs including CBC, CMP, and Covid screen were grossly unremarkable. CT of the head was read as "No acute intracranial abnormality. Mild left frontal scalp swelling.". Chest CT was read as "1. Acute nondisplaced fractures of the anterolateral left seventh through 10th ribs. Trace left pleural effusion. No pneumothorax. 2. No evidence for traumatic injury to the thoracic aorta. 3. Dilatation of the ascending aorta, measuring 4.5 cm. 4. Dilatation of the central pulmonary arteries which raises the possibility of pulmonary arterial hypertension.". CT of the cervical spine was read as "No acute cervical spine fracture or subluxation.". CT of the abd/pelvis with contrast was read as "1. No acute traumatic findings within the abdomen or pelvis. 2. Acute fractures of the anterolateral left seventh through 10th ribs. 3. Upper abdominal varices, including perigastric varices. Possible cirrhosis. 4. Cholelithiasis. No evidence for acute cholecystitis. 5. Pancreatic parenchymal calcifications which could indicate chronic pancreatitis. 6. Right- sided nephrolithiasis.". Prior to admission the patient was given 2 mg IV morphine and 4 mg IV zofran. At the time of the exam the patient was lying in bed in no acute distress with 2 fdc guards at bedside. The patient states that he has chronic back pain and had been using a walker for ambulation. He has been working hard to improve his mobility and had recently been able to ambulate with the use of a cane. The night prior to admission he was in his cell walking and accidentally tripped on his bedside ladder. He states that when he fell he hit the left chest on his toilet and his left forehead on the sink. He denies losing consciousness during or after the fall. Since the fall the patient has been experiencing severe left-sided chest pain in the distribution of his rib fractures. He denies changes in vision, hearing, taste, and smell since the fall. He experiences left-sided chest pain with moderate-deep inspiration. He denies any cough or hemoptysis. He is experiencing some left-sided abd pain with palpation but has not not experienced recent nausea or vomiting, He denies recent dysuria, hematuria, melena, or blood bowel movements. He is a former smoker but has switched to an E-Cigarette. Reinforced the importance of using the incentive spirometer every hour while here to prevent the development of pneumonia and he expressed understanding. Please refer to Dr. Quispe's attestation for any changes to the treatment plan Principal Diagnosis Left sided nondisplaced rib fx, T7-10 Discharge Exam WDWN WM in NAD Constitutional afebrile Neck supple Respiratory shallow respirations, no wheeze, pt is splinting Cardiovascular RR without m, g Chest (Breasts) Additional Comments: left sided chest wall tender to pressure Gastrointestinal (Abdomen) nontender, BS nl active Discharge Data Allergies Allergy/AdvReac Type Severity Reaction Status Date / Time No Known Allergies Allergy Verified 01/06/23 17:15 Consultations 01/06/23 17:33 ED Decision to Admit Stat 01/06/23 20:03 Consult Pain Management Routine Ordered Studies 01/06/23 15:26 CT abd pelvis IV con only Stat CT cervical spine wo con Stat CT chest diagnostic w con Stat CT head/brain wo con Stat Hospital Course (1) Fall: -Admit to med/surge -The patient is currently afebrile, hemodynamically stable, and stable on RA -Sustained a mechanical fall after tripping on the ladder in his cell, hit the left side of his ribs on his toilet and the left forehead on his toilet -No LOC, alert and oriented -Found to have non-displaced Acute fractures of the anterolateral left seventh through 10th ribs on CT at time of admission, otherwise no other acute trauma -CT of the abd/pelvis did show Upper abdominal varices, including perigastric varices and Possible cirrhosis. >LFT's WNL, would recommend outpatient referral to GI/Hepatology for further evaluation Chest CT: 1. Acute nondisplaced fractures of the anterolateral left seventh through 10th ribs. Trace left pleural effusion. No pneumothorax. 2. No evidence for traumatic injury to the thoracic aorta. 3. Dilatation of the ascending aorta, measuring 4.5 cm. 4. Dilatation of the central pulmonary arteries which raises the possibility of pulmonary arterial hypertension. consider Vasc Surg/Cardiology eval regarding the ascending aorta dilation >Tramadol (or equivalent) recommended for pain control -Ensure the patient continues to use his incentive spirometer to avoid development of pneumonia Discussed with Dr. Goodson (2) BPH w/o urinary obs/LUTS: -Continue flomax (3) Mild intermittent asthma: -Continue albuterol and incentive spirometry. Strongly recommended no smoking or tobacco products at all (4) Antisocial personality disorder: -Continue Duloxetine and Divalproex for now -Divalproex does have side effects associated with hepatotoxicity, may need to consider discontinuing with CT findings of possible cirrhosis (5) Type 2 diabetes mellitus: -resume metformin (6) Other hyperlipidemia: -Continue statin (7) Thoracic ascending aortic aneurysm: measures 4.[address] scan of chest. Consider Cardiology evaluation or Vascular/CT surgery evaluation as per Dr. Goodson Plan DC to facility Total Time Total Time Spent Total Time Spent (In Minutes): 50 Discharge Plan Discharge Items Patient Disposition: [facility] Facility Reason For Visit: mechanical fall Discharge Diagnosis: Non displaced left sided T7-10 rib ractures Condition on Discharge: Good Activity: As commented below Activity Comment: avoid excessive pending, lifting Lifting: Gradually increase as tolerated Bathing: No limitations Non-emergency contact: Primary Care Provider Call non-emergency contact if: your symptoms worsen Follow-up/Referrals: Yair GREENE [Primary Care Provider] - Diet: Carb Consistent or DM2 Addtl Attending Provider Instructions: Importance of using incentive spirometer was stressed to the patient. Tramadol or equivalent analgesic. If experiences acute respiratory distress or sudden worsening of symptoms should return for reevaluation. Should consider possible evaluation of ascending thoracic aneurysm in near future. Also consider evaluation by inventory control supervisor regarding upper abdominal varices and possible early cirrhosis. Pending Studies at Discharge: No Skilled Items Patient informed of condition?: Yes DNR: No Discharge Level of Care: Other Communicable Disease: No Discharge Prognosis: Stable Lines: None Urinary Catheter: No Medications and DC Order Prescriptions: New acetaminophen 325 mg Tablet 650 mg PO Q6H Qty: 30 0RF tramadol 50 mg Tablet 50 mg PO Q4H PRN (Reason: moderate pain) Qty: 30 0RF Continued duloxetine 30 mg capsule,delayed release(DR/EC) 30 mg PO DAILY divalproex 500 mg tablet,delayed release (DR/EC) 500 mg PO DAILY tamsulosin [Flomax] 0.4 mg capsule 0.4 mg PO DAILY Alvesco 80 mcg/actuation HFA aerosol inhaler 2 puff inhalation BID metformin 1,000 mg tablet 1,000 mg PO BID aspirin 81 mg capsule 81 mg PO DAILY atorvastatin 20 mg Tablet 20 mg PO DAILY albuterol sulfate 90 mcg/actuation Hfa Aerosol Inhaler 2 puff INHALATION QID PRN (Reason: Shortness Of Breath Or Wheezing) Admission Data Admit Date/Time: 01/06/23 18:33 Attending Provider: David Arana Admit Provider: Asif Quispe Primary Care Provider: Yair GREENE Other Providers: Asif Quispe ; Patricia Melendez Coding Level of Care Code 34565 IN/OBS DISCH 30 MIN/LESS Diagnoses Fall W19.XXXA BPH w/o urinary obs/LUTS N40.0 Mild intermittent asthma J45.20 Antisocial personality disorder F60.2 Type 2 diabetes mellitus E11.9 Other hyperlipidemia E78.49 Thoracic ascending aortic aneurysm I71.21
[2023-01-07] MEDS ORDERED: INSULIN ASPART PER UNIT CHARGE SC ONE (16:33)
[2023-01-07] MEDS ORDERED: LANTUS PER UNIT CHARGE SQ ONE (16:33)
== END 2023-01-07 16:34 ==
LOC: 3W 14:41 → ED 14:41 → SUATTDRO 18:33 → 3W 20:43

== ENCOUNTER 2023-11-20 22:43 | Observation (INO) ==
[2023-11-20 23:23] LABS: Basophils # (auto) 0.07 K/uL (0.00-0.20); Basophils % (auto) 0.9 %; Eosinophils # (auto) 0.03 K/uL (0.00-0.50); Eosinophils % (auto) 0.4 %; Hematocrit (blood only) 44.3 % (42.0-52.0); Hemoglobin 15.3 g/dl (14.0-18.0); Immature Granulocytes % (auto) 1.2 %; Lymphocytes % (auto) 17.5 %; Mean Corpuscular Hgb Conc 34.5 g/dL (32.0-36.0); Mean Corpuscular Volume 89.7 fL (80.0-100.0); Mean Platelet Volume 9.9 fL (9.4-12.4); Monocytes # (auto) 0.62 K/uL (0.11-0.59); Monocytes % (auto) 7.7 %; Neutrophils # (auto) 5.79 K/uL (1.40-6.50); Neutrophils % (auto) 72.3 %; Platelet Count 215 K/uL (130-400); RDW Coefficient of Variation 13.4 % (11.5-14.5); RDW Standard Deviation 44.1 fL (36.4-46.3); Red Blood Count 4.94 M/uL (4.70-6.10); White Blood Count 8.01 K/ul (4.8-10.8)
[2023-11-20 23:37] LABS: Alanine Aminotransferase 17 U/L (7-52); Albumin Globulin Ratio 0.9 (0.9-2); Albumin Level 3.4 gm/dl (3.4-5.0); Alkaline Phosphatase 45 U/L (34-104); Anion Gap 7 (3-11); Aspartate Aminotransferase 24 U/L (13-39); BUN Creatinine Ratio 12.9 (10-20); Bilirubin,Total 0.7 mg/dl (0.2-1.0); Blood Urea Nitrogen 11 mg/dl (6-23); Calcium 8.6 mg/dl (8.6-10.3); Carbon Dioxide 23 mmol/L (21-32); Chloride 103 mmol/L (98-107); Est GFR (African American) 106.7 ml/min; Est GFR (Non-African American) 92.1 ml/min; Globulin 3.6 gm/dl (2.5-4.0); Glucose 97 mg/dl (70-99(Fasting)); Magnesium 1.7 mg/dl (1.7-2.4); Potassium 4.5 mmol/L (3.5-5.1); Sodium 133 mmol/L (136-145)
--- NOTE | 2023-11-20 23:40 | Emergency Department Note ---
Impression & Plan Cellulitis of right leg, Type 2 diabetes mellitus ED Provider Note CHIEF COMPLAINT: Fever, right leg/foot pain HISTORY OF PRESENTING ILLNESS: This 63-year-old male patient presents to the emergency department from [facility] accompanied by correctional officers for evaluation of right leg and foot pain as well as fever. The patient was recently put on antibiotics for cellulitis of the right lower extremity. The infection started 6 days ago. From [facility] records, he has been getting IV vancomycin for the past 5 days. Started with a fever 101 F max tonight. He denies any injury or trauma to the leg. His tetanus shot is up to date. He rates his discomfort as 4/10. He denies any chest pain, shortness of breath, abdominal pain, nausea, or vomiting. He does have a history of diabetes. REVIEW OF SYSTEMS: See HPI for pertinent positives and pertinent negatives. ALLERGIES: NKDA MEDICATIONS: Albuterol prn, aspirin, atorvastatin, metformin, Advair Diskus PAST MEDICAL HISTORY: DM, Asthma, glaucoma, antisocial personality disorder, hyperlipidemia PHYSICAL EXAM: VITALS: Vitals are noted on the nurse's note and reviewed by myself. GENERAL: Non toxic, no acute distress, non-diaphoretic. SKIN: Erythema with significant edema to the right lower extremity mainly from the right knee distally. The patient also has dry flaky skin. No obvious evidence for abscess. No discharge. No lymphatic streaking. The patient is diffusely tender over the edema, but no joint tenderness. Capillary refill <2 sec. EYES: PERRLA. EOMI. Conjunctivae without injection, sclerae without icterus. NOSE: Patent without discharge. MOUTH: Mucous membranes moist. Uvula midline. Airway patent. NECK: Supple without nuchal rigidity. HEART: Regular rate and rhythm without murmurs gallops or rubs. LUNGS: Clear to auscultation bilaterally without wheezes, rales or rhonchi. No retractions or accessory muscle use. ABDOMEN: Positive bowel sounds x 4. Normal tympanic percussion. Soft, nontender. No masses or organomegaly. Tapia sign negative. No guarding or rebound tenderness. No focal RLQ or LLQ tenderness. MUSCULOSKELETAL: No tenderness to palpation of the joints of the right lower extremity. Decreased range of motion of the right ankle and toes due to edema, but no evidence for septic arthritis. Full range of motion of the right knee. Difficult to assess pulses due to the amount of edema. The patient has poor nail care with onychomycosis. NEURO: Patient was alert and oriented. No focal neurological deficits. DIFFERENTIAL DIAGNOSIS: Differential diagnosis includes cellulitis, abscess, DVT, venous occlusion, arterial occlusion, septic arthritis, osteomyelitis, CHF, or others. ED COURSE AND MEDICAL DECISION MAKING: HISTORY FROM INDEPENDENT HISTORIAN: Additional history was obtained from [facility] records as well as correctional officers. MONITOR: Continuous b2b sales manager: Order was placed for continuous b2b sales manager. Patient was placed on the b2b sales manager and continuous pulse ox. Patient was noted to be in normal sinus rhythm at an initial rate of 80 bpm per my interpretation. EKG: EKG was interpreted by myself as normal sinus rhythm at 97 bpm with a right bundle branch block, but no acute ST or T wave changes. MEDICATIONS GIVEN: 1 L normal saline solution bolus, Tylenol 1000 mg IV, Zosyn 4.5 g IV. INTERPRETATION OF LABS: I interpreted the labs with full lab results as below in the lab section of this note. CBC without leukocytosis, anemia, or thrombocytopenia. PT elevated at 12.3, but other coags are normal. Sodium 133, but CMP otherwise normal. Lactate and procalcitonin were normal. High- sensitivity troponin was normal. Magnesium was normal. Urinalysis was normal. Blood cultures are pending. INTERPRETATION OF IMAGING: Chest x-ray as interpreted by myself shows cardiomegaly with possible atelectasis. Radiology report still pending. Venous Doppler of the right lower extremity showed no evidence for DVT or other acute abnormalities. EXTERNAL RECORDS REVIEWED: [facility] records CONSULTATIONS: On-call hospitalist MDM SUMMARY: The patient was seen during a time of extreme volume and extreme acuity. Nursing triage protocols were initiated with IV lock, labs, and/or imaging studies conducted by protocol in the triage area. The patient was initially evaluated in a subwaiting room and then re-examined once they were taken back to an exam room. The patient has been on IV vancomycin for the past 5 days per [facility] records. However, his right lower extremity cellulitis is not improving. Laboratory studies show a normal white blood cell count, normal lactate, and normal procalcitonin. EKG and high-sensitivity troponin were normal. Blood cultures are pending. The patient does have significant erythema and edema of the right lower extremity. Venous Doppler of the right lower extremity was obtained and was negative for DVT. The patient has failed outpatient treatment and he is a diabetic. He will require admission for further management. I spoke with the on-call hospitalist who agreed to admit the patient for further evaluation and treatment. Please refer to their dictation for further details. The patient's care was transferred in stable condition. DIAGNOSIS: Right lower extremity cellulitis Past Med/Surg History Medical History (Updated 11/21/23 @ 06:52 by Corinne Vasquez PA-C) BPH w/o urinary obs/LUTS Type 2 diabetes mellitus Inmate in correctional facility Xerosis cutis Mild intermittent asthma Antisocial personality disorder Opioid use disorder Surgical History No history of previous surgery none listed on [facility] record Social History Smoking Status: Former smoker Cigarettes Per Day: 1; Hx Alcohol Use: No Hx Substance Use: No Preferred Language: Puerto Rican Communication Ability: Effective Breakdown Worker Required: No Beliefs That Will Affect Care: None Current Living Situation: Other Current Living Situation Comment: [facility] Feels Safe at Home: Yes Assistive Devices: Cane Allergies Allergies Allergy/AdvReac Type Severity Reaction Status Date / Time No Known Allergies Allergy Verified 11/21/23 01:47 Home Meds Home Medications Medication Instructions Recorded Confirmed aspirin 81 mg capsule 81 mg PO DAILY 01/03/23 11/21/23 metformin 1,000 mg tablet 1,000 mg PO BID 01/03/23 11/21/23 atorvastatin 20 mg tablet 20 mg PO DAILY 01/06/23 11/21/23 fluticasone 100 mcg-salmeterol 50 1 inh inhalation BID 03/10/23 11/21/23 mcg/dose blistr powdr for inhalation (Advair Diskus) albuterol sulfate 90 mcg/actuation 1 inh inhalation QID PRN Shortness 11/21/23 11/21/23 aerosol inhaler Of Breath vancomycin 1.25 gram intravenous 1 g IV Q12H 11/21/23 11/21/23 solution Results & Data (ED) Vital Signs Vital Signs - 24 hr 11/20/23 22:46 11/21/23 00:44 11/21/23 01:10 Temperature 37.1 C Temperature Source Temporal Artery Scan Pulse Rate 93 H 63 Pulse Rate [Right Finger] 65 Respiratory Rate 18 20 Respiratory Effort / Characteristics Non-Labored Spontaneous Respiratory Depth Normal Respiratory Pattern Regular Blood Pressure 91/62 L Blood Pressure [Right Arm] 102/61 Blood Pressure Mean 71 Blood Pressure Mean [Right Arm] 74 Pulse Oximetry 91 92 Oxygen Delivery Method Room Air Nasal Cannula Oxygen Flow Rate 3 Sepsis Recent Fever Within 48 Hours Yes Sepsis New/Unexplained Change in Mental Status No Sepsis Action Taken by Nursing No Action Required Laboratory Data 11/20/23 23:04 11/20/23 23:04 Lab Results 11/20/23 11/20/23 Range/Units 23:04 23:07 WBC 8.01 (4.8-10.8) K/ul RBC 4.94 (4.70-6.10) M/uL Hgb 15.3 (14.0-18.0) g/dl Hct 44.3 (42.0-52.0) % MCV 89.7 (80.0-100.0) fL MCH 31.0 (25.0-34.0) pg MCHC 34.5 (32.0-36.0) g/dL RDW Std Deviation 44.1 (36.4-46.3) fL RDW Coeff of Ingrid 13.4 (11.5-14.5) % Plt Count 215 (130-400) K/uL MPV 9.9 (9.4-12.4) fL Immature Gran % (Auto) 1.2 % Neut % (Auto) 72.3 % Lymph % (Auto) 17.5 % Canadian % (Auto) 7.7 % Eos % (Auto) 0.4 % Baso % (Auto) 0.9 % Neut # (Auto) 5.79 (1.40-6.50) K/uL Lymph # (Auto) 1.40 (1.20-3.40) K/uL Canadian # (Auto) 0.62 H (0.11-0.59) K/uL Eos # (Auto) 0.03 (0.00-0.50) K/uL Baso # (Auto) 0.07 (0.00-0.20) K/uL Immature Gran # (Auto) 0.10 (0.01-0.20) K/uL PT 12.3 H (9.0-12.0) Seconds INR 1.1 (0.9-1.1) APTT 30 (21-31) Seconds PTT Ratio 1.1 Sodium 133 L (136-145) mmol/L Potassium 4.5 (3.5-5.1) mmol/L Chloride 103 (98-107) mmol/L Carbon Dioxide 23 (21-32) mmol/L Anion Gap 7 (3-11) BUN 11 (6-23) mg/dl Creatinine 0.85 (0.6-1.4) mg/dl Est Cr Clr Drug Dosing Not Reportable Est GFR ( Amer) 106.7 ml/min Est GFR (Non-Af Amer) 92.1 ml/min BUN/Creatinine Ratio 12.9 (10-20) Glucose 97 (70-99(Fasting)) mg/dl Estimat Average Glucose 134 mg/dl Hemoglobin A1c 6.3 H (4.5-5.6) % Lactate 1.1 (0.4-2.0) mmol/L Calcium 8.6 (8.6-10.3) mg/dl Magnesium 1.7 (1.7-2.4) mg/dl Total Bilirubin 0.7 (0.2-1.0) mg/dl AST 24 (13-39) U/L ALT 17 (7-52) U/L Alkaline Phosphatase 45 (34-104) U/L Troponin I High Sens 8.4 (0-20) pg/ml Total Protein 7.0 (6.0-8.3) gm/dl Albumin 3.4 (3.4-5.0) gm/dl Globulin 3.6 (2.5-4.0) gm/dl Albumin/Globulin Ratio 0.9 (0.9-2) Procalcitonin 0.15 (0-0.5) ng/ml Administered Medications Acetaminophen (Acetaminophen 325 Mg Tab) 650 mg PO Q4H PRN PRN Reason: Pain or Fever Stop: 12/21/23 04:08 Last Admin: 11/21/23 07:36 Dose: 650 mg Documented By: GONZÁLEZ Piperacillin Sod/Tazobactam (Sod 4.5 gm/ Dextrose) 100 mls @ 25 mls/hr IV Q8H [facility]; Protocol Stop: 11/28/23 04:08 Last Admin: 11/21/23 05:30 Dose: 25 mls/hr Documented By: MICHELE Daptomycin 325 mg/ Syringe 6.5 mls @ 3 mls/min IV Q24H [facility]; Protocol Stop: 11/28/23 05:59 Last Admin: 11/21/23 06:09 Dose: 3 mls/min Documented By: MICHELE Discontinued Medications Piperacillin Sod/Tazobactam Sod (Zosyn) 4.5 gm in 100 mls @ 200 mls/hr IV NOW ONE Stop: 11/21/23 00:19 Last Infusion: 11/21/23 01:42 Dose: Infused Documented By: TJVince Admin: 11/21/23 01:02 Dose: 200 mls/hr Documented By: Natasha Sodium Chloride (Nss) 1,000 mls @ 999 mls/hr IV .Q1H1M ONE Stop: 11/21/23 00:50 Last Infusion: 11/21/23 01:13 Dose: Infused Documented By: Admin: 11/20/23 23:56 Dose: 999 mls/hr Documented By: MED Acetaminophen (Ofirmev) 1,000 mg in 100 mls @ 400 mls/hr IV NOW STA Stop: 11/21/23 00:04 Last Infusion: 11/21/23 01:13 Dose: Infused Documented By: [facility] Admin: 11/21/23 00:01 Dose: 400 mls/hr Documented By: MED Miscellaneous (Patient's Height &/Or Weight Needed) 1 each N/A NOW STA Stop: 11/21/23 04:21 Last Admin: 11/21/23 05:30 Dose: 1 each Documented By: MICHELE Imaging Data Radiologist's Impression: Chest X-Ray 11/20/23 22:49 XR chest 1V not portable HISTORY: 63 years-old Male Sepsis acute sepsis COMPARISON: Chest CT 01/06/2023 TECHNIQUE: AP view of the chest FINDINGS: Cardiac silhouette is enlarged. Pulmonary vascular congestion with interstitial coarsening. Moderate bibasilar opacities. Pulmonary emphysema. Surgical anchors in the right humeral head. No pneumothorax or pleural effusion. IMPRESSION: 1. Cardiomegaly with mild pulmonary edema. 2. Mild bibasilar densities suggest atelectasis versus pneumonia. ACT 112: Negative or not required by law. The above report was generated using voice recognition software. It may contain grammatical, syntax or spelling errors. Electronically signed by: Reji Beltre M.D. 11/21/2023 7:57 AM Venous Doppler Study 11/20/23 23:50 Exam(s): US VENOUS RIGHT LOWER EXTREMITY EXAM: US Duplex Right Lower Extremity Veins CLINICAL HISTORY: Reason for exam: swelling, redness, r/o DVT. TECHNIQUE: Real-time duplex ultrasound scan of the right lower extremity veins integrating B-mode two-dimensional vascular structure, Doppler spectral analysis, color flow Doppler imaging and compression. COMPARISON: No relevant prior studies available. FINDINGS: Deep veins: Unremarkable. No DVT in the visualized common femoral, femoral, proximal deep femoral or popliteal veins. The veins demonstrate normal color flow, are normally compressible, with normal phasic flow and/or augmentation response. Superficial veins: Unremarkable. No thrombus in the visualized great saphenous vein. Soft tissues: Subcutaneous edema. No popliteal cyst. IMPRESSION: No DVT of the RIGHT lower extremity. Electronically signed by: Mike Boo MD 11/21/23 00:45 AM Discharge Plan Visit Data Chief Complaint: Leg Injury/Pain Stated Complaint: FEVER, LT LEG/FOOT PAIN ED Provider: Fanny Cook ED Midlevel Provider: Corinne Vasquez Discharge Problem: Cellulitis of right leg, Type 2 diabetes mellitus Patient Disposition: Admitted As Inpatient Condition: Good Discharge Instructions Interventions: ED Discharge Assessment Last Done: 11/21/23 03:54
[2023-11-20 23:44] LABS: Troponin I High Sensitivity 8.4 pg/ml (0-20)
[2023-11-20] MEDS: SODIUM CHLORIDE 0.9% 1,000 ML IV ONE (23:56)
[2023-11-21] LABS: INR 1.1 (0.9-1.1); Partial Thromboplastin Ratio 1.1; Partial Thromboplastin Time 30 Seconds (21-31); Prothrombin Time 12.3 Seconds (9.0-12.0)
[2023-11-21] MEDS: ACETAMINOPHEN 1,000 MG/100 ML VIAL IV STA (00:01)
--- NOTE | 2023-11-21 00:46 | Ultrasound Report ---
Exam(s): US VENOUS RIGHT LOWER EXTREMITY EXAM: US Duplex Right Lower Extremity Veins CLINICAL HISTORY: Reason for exam: swelling, redness, r/o DVT. TECHNIQUE: Real-time duplex ultrasound scan of the right lower extremity veins integrating B-mode two-dimensional vascular structure, Doppler spectral analysis, color flow Doppler imaging and compression. COMPARISON: No relevant prior studies available. FINDINGS: Deep veins: Unremarkable. No DVT in the visualized common femoral, femoral, proximal deep femoral or popliteal veins. The veins demonstrate normal color flow, are normally compressible, with normal phasic flow and/or augmentation response. Superficial veins: Unremarkable. No thrombus in the visualized great saphenous vein. Soft tissues: Subcutaneous edema. No popliteal cyst. IMPRESSION: No DVT of the RIGHT lower extremity. Electronically signed by: Mike Boo MD 11/21/23 00:45 AM
[2023-11-21] MEDS: PIPERACILLIN/TAZOBACTAM 4.5 GM/100 ML BAG IV ONE (01:02)
--- NOTE | 2023-11-21 01:58 | History & Physical Report ---
Date of Service November 21, 2023 Assessment & Plan (1) Cellulitis: Plan: 63yo male with DM presenting with redness, pain and swelling of the RLE ongoing for the last 6 days. Patient has been on Vancomycin for 5 days with no improvement. He is afebrile, HD stable, NAD and non-toxic in appearance RLE doppler with no DVT -Admit to medical -Follow blood cultures sent from ER -Broad spectrum antibiotics with Zosyn and Daptomycin -Repeat labs in the AM -Tylenol and Ibuprofen PRN pain or fever -Zofran PRN nausea (2) Type 2 diabetes mellitus: Plan: Patient reports he does not check his blood sugar -check Hgb A1C -ISS, goal blood sugar 110 - 140 (3) Asthma: Plan: Patient with persistent asthma. No cough, SOB or wheeze -Continue Advair -Albuterol PRN History of Present Illness Chief Complaint: RLE pain, redness and swelling Primary Care Provider: RAMONA Tapia is a 63yo male with history of BPH, DM and Asthma presenting from [facility] with redness, pain and swelling of the RLE. Patient reported that his symptoms began approximately 6 days ago with his RLE swelling. He has dried, flaking skin and progressive erythema and pain. He has had intermittent fevers as well, temperature of 101 prior to arrival. He has been on IV Vancomycin through the [facility] for the last 5 days. Unfortunately his symptoms have progressed. No additional complaints. No chest pain, cough or SOB. He had some vomiting but no diarrhea. In the ER he is afebrile, HD stable, NAD ER Course: Zosyn 4.5gm Tylenol 1gm IV NSS x 1L Allergies Allergy/AdvReac Type Severity Reaction Status Date / Time No Known Allergies Allergy Verified 11/21/23 01:47 Home Medications Medication Instructions Recorded Confirmed Type aspirin 81 mg capsule 81 mg PO DAILY 01/03/23 11/21/23 History metformin 1,000 mg tablet 1,000 mg PO BID 01/03/23 11/21/23 History atorvastatin 20 mg tablet 20 mg PO DAILY 01/06/23 11/21/23 History fluticasone 100 mcg-salmeterol 50 1 inh inhalation BID 03/10/23 11/21/23 History mcg/dose blistr powdr for inhalation (Advair Diskus) albuterol sulfate 90 mcg/actuation 1 inh inhalation QID PRN Shortness 11/21/23 11/21/23 History aerosol inhaler Of Breath vancomycin 1.25 gram intravenous 1 g IV Q12H 11/21/23 11/21/23 History solution Past Med/Surg History Medical History (Updated 11/21/23 @ 04:00 by Anai Acuña DO) BPH w/o urinary obs/LUTS Type 2 diabetes mellitus Inmate in correctional facility Xerosis cutis Mild intermittent asthma Antisocial personality disorder Opioid use disorder Surgical History No history of previous surgery none listed on [facility] record Social History Smoking Status: Unknown if ever smoked Cigarettes Per Day: 1; Preferred Language: Liberian Communication Ability: Effective 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 Beliefs That Will Affect Care: None Current Living Situation: Other Current Living Situation Comment: [facility] Feels Safe at Home: Yes Assistive Devices: Cane Review of Systems Review of Systems: All systems reviewed & are unremarkable except as noted in HPI & below Physical Exam Physical Exam: General: patient resting comfortably, NAD, non-toxic in appearance, AA&O x 4 HEENT: NC/AT, PERRL, EOMI, anicteric sclera, conjunctiva without injection, external ear normal to inspection and nontender, nares patent, moist mucus membranes, dentition intact, no oropharyngeal lesions, neck supple, trachea midline, no LAD, no thyromegaly, no JVD Heart: +S1/S2, regular, no m/r/g Lungs: equal air entry bilaterally, no rales/rhonchi/wheezes Abd: +BS, soft, NT/ND, no masses/organomegaly/ascites Ext: warm, 2+ pulses in UE/LE bilaterally, no clubbing/cyanosis RLE with 2+ pitting edema to the thigh, warmth and redness of leg with some streaking up medial thigh, tender to palpation. Some fluid filled blisters on foot. No crepitus, bullae. Neuro: nonfocal, patient AA&O x 4, speech intact, no facial droop, moving all extremities on command with equal strength 5/5 Results & Data Results & Data Vital Signs (Past 12 Hours) Vital Signs Temp Pulse Resp BP Pulse Ox O2 Del Method 11/20/23 22:46 37.1 C 93 H 18 91/62 L 91 Room Air Laboratory Results Laboratory Results WBC 8.01 K/ul (4.8-10.8) 11/20/23 23:04 RBC 4.94 M/uL (4.70-6.10) 11/20/23 23:04 Hgb 15.3 g/dl (14.0-18.0) 11/20/23 23:04 Hct 44.3 % (42.0-52.0) 11/20/23 23:04 MCV 89.7 fL (80.0-100.0) 11/20/23 23:04 MCH 31.0 pg (25.0-34.0) 11/20/23 23:04 MCHC 34.5 g/dL (32.0-36.0) 11/20/23 23:04 RDW Std Deviation 44.1 fL (36.4-46.3) 11/20/23 23:04 RDW Coeff of Ingrid 13.4 % (11.5-14.5) 11/20/23 23:04 Plt Count 215 K/uL (130-400) 11/20/23 23:04 MPV 9.9 fL (9.4-12.4) 11/20/23 23:04 Immature Gran % (Auto) 1.2 % 11/20/23 23:04 Neut % (Auto) 72.3 % 11/20/23 23:04 Lymph % (Auto) 17.5 % 11/20/23 23:04 Stanton % (Auto) 7.7 % 11/20/23 23:04 Eos % (Auto) 0.4 % 11/20/23 23:04 Baso % (Auto) 0.9 % 11/20/23 23:04 Neut # (Auto) 5.79 K/uL (1.40-6.50) 11/20/23 23:04 Lymph # (Auto) 1.40 K/uL (1.20-3.40) 11/20/23 23:04 Stanton # (Auto) 0.62 K/uL (0.11-0.59) H 11/20/23 23:04 Eos # (Auto) 0.03 K/uL (0.00-0.50) 11/20/23 23:04 Baso # (Auto) 0.07 K/uL (0.00-0.20) 11/20/23 23:04 Immature Gran # (Auto) 0.10 K/uL (0.01-0.20) 11/20/23 23:04 PT 12.3 Seconds (9.0-12.0) H 11/20/23 23:04 INR 1.1 (0.9-1.1) 11/20/23 23:04 APTT 30 Seconds (21-31) 11/20/23 23:04 PTT Ratio 1.1 11/20/23 23:04 Sodium 133 mmol/L (136-145) L 11/20/23 23:04 Potassium 4.5 mmol/L (3.5-5.1) 11/20/23 23:04 Chloride 103 mmol/L (98-107) 11/20/23 23:04 Carbon Dioxide 23 mmol/L (21-32) 11/20/23 23:04 Anion Gap 7 (3-11) 11/20/23 23:04 BUN 11 mg/dl (6-23) 11/20/23 23:04 Creatinine 0.85 mg/dl (0.6-1.4) 11/20/23 23:04 Est Cr Clr Drug Dosing Not Reportable 11/20/23 23:04 Est GFR ( Amer) 106.7 ml/min 11/20/23 23:04 Est GFR (Non-Af Amer) 92.1 ml/min 11/20/23 23:04 BUN/Creatinine Ratio 12.9 (10-20) 11/20/23 23:04 Glucose 97 mg/dl (70-99(Fasting)) 11/20/23 23:04 POC Glucose 92 mg/dl (70-99) 11/21/23 03:52 Lactate 1.1 mmol/L (0.4-2.0) 11/20/23 23:07 Calcium 8.6 mg/dl (8.6-10.3) 11/20/23 23:04 Magnesium 1.7 mg/dl (1.7-2.4) 11/20/23 23:04 Total Bilirubin 0.7 mg/dl (0.2-1.0) 02/04/24 23:04 AST 24 U/L (13-39) 11/20/23 23:04 ALT 17 U/L (7-52) 11/20/23 23:04 Alkaline Phosphatase 45 U/L (34-104) 11/20/23 23:04 Troponin I High Sens 8.4 pg/ml (0-20) 11/20/23 23:04 Total Protein 7.0 gm/dl (6.0-8.3) 11/20/23 23:04 Albumin 3.4 gm/dl (3.4-5.0) 11/20/23 23:04 Globulin 3.6 gm/dl (2.5-4.0) 11/20/23 23:04 Albumin/Globulin Ratio 0.9 (0.9-2) 11/20/23 23:04 Procalcitonin 0.15 ng/ml (0-0.5) 11/20/23 23:04 Urine Color Yellow 11/21/23 02:25 Urine Appearance Clear (Clear) 11/21/23 02:25 Urine pH 6.5 (4.5-7.5) 11/21/23 02:25 Ur Specific [place] 1.010 (1.000-1.030) 11/21/23 02:25 Urine Protein Negative (Negative) 11/21/23 02:25 Urine Glucose (UA) Negative (Negative) 11/21/23 02:25 Urine Ketones Negative (Negative) 11/21/23 02:25 Urine Blood Negative (Negative) 11/21/23 02:25 Urine Nitrite Negative (Negative) 11/21/23 02:25 Urine Bilirubin Negative (Negative) 11/21/23 02:25 Urine Urobilinogen Negative (Negative) 11/21/23 02:25 Ur Leukocyte Esterase Negative (Negative) 11/21/23 02:25 Impressions Venous Doppler Study 11/20/23 23:50 Exam(s): US VENOUS RIGHT LOWER EXTREMITY EXAM: US Duplex Right Lower Extremity Veins CLINICAL HISTORY: Reason for exam: swelling, redness, r/o DVT. TECHNIQUE: Real-time duplex ultrasound scan of the right lower extremity veins integrating B-mode two-dimensional vascular structure, Doppler spectral analysis, color flow Doppler imaging and compression. COMPARISON: No relevant prior studies available. FINDINGS: Deep veins: Unremarkable. No DVT in the visualized common femoral, femoral, proximal deep femoral or popliteal veins. The veins demonstrate normal color flow, are normally compressible, with normal phasic flow and/or augmentation response. Superficial veins: Unremarkable. No thrombus in the visualized great saphenous vein. Soft tissues: Subcutaneous edema. No popliteal cyst. IMPRESSION: No DVT of the RIGHT lower extremity. Electronically signed by: Mike Boo MD 11/21/23 00:45 AM Diagnostic Findings CXR per my interpretation with some patchy airspace opacities, L>R ECG Additional Comments: EKG wiwth NSR at 97bpm, normal axis, RBBB, XP=795, LAC=267, HTu=326, no acute ischemic changes PG Care Time/CCT Total # of Minutes Spent Total Time Spent with Patient: Total time spent is greater than 50% in coordination of care (as documented) at patient's floor/unit and/or counseling patient: Coding Level of Care Code 93590 INT INP/OBS CARE 2/55MIN Diagnoses Cellulitis L03.90 Type 2 diabetes mellitus E11.9 Asthma J45.909
[2023-11-21 02:48] LABS: Appearance Urine Clear (Clear); Bilirubin Urine Negative (Negative); Blood Urine Negative (Negative); Color Urine Yellow; Glucose Urine UA Negative (Negative); Ketones Urine Negative (Negative); Leukocyte Esterase Urine Negative (Negative); Nitrite Urine Negative (Negative); Protein Urine Negative (Negative); Urobilinogen Urine Negative (Negative); pH Urine 6.5 (4.5-7.5)
[2023-11-21] MEDS ORDERED: IBUPROFEN 600 MG TAB PO PRN (04:09)
[2023-11-21] MEDS ORDERED: ALBUTEROL HFA 8 GM INHALER INH PRN (04:09)
[2023-11-21] MEDS ORDERED: GLUCAGON FOR INJ 1 MG VIAL SQ PRN (04:09)
[2023-11-21] MEDS ORDERED: CARBOHYDRATES FOR HYPOGLYCEMIA PO PRN (04:09)
[2023-11-21] MEDS ORDERED: ONDANSETRON INJ 2 MG/ML 2 ML VIAL IV PRN (04:09)
[2023-11-21] MEDS ORDERED: GLUCOSE 10 TAB/TUBE PO PRN (04:09)
[2023-11-21] MEDS ORDERED: DEXTROSE 50% 50 ML SYRINGE IV PRN (04:09)
[2023-11-21] MEDS ORDERED: GLUCOSE 40% GEL 15 GM TUBE PO PRN (04:09)
[2023-11-21] MEDS: Patient's HEIGHT &/or WEIGHT Needed STA (05:30)
[2023-11-21] MEDS: PIPERACILLIN/TAZOBACTAM 4.5 GM in DEXTROSE 5% MINI-B 100 ML IV SCH (05:30)
[2023-11-21] MEDS: DAPTOmycin 325 MG in SYRINGE 0 ML IV SCH (06:09)
[2023-11-21] MEDS: ACETAMINOPHEN 325 MG TAB PO PRN (07:36)
[2023-11-21 07:42] LABS: Estimated Average Glucose 134 mg/dl; Hemoglobin A1C 6.3 % (4.5-5.6)
--- NOTE | 2023-11-21 07:55 | Hospitalist Progress Note ---
Date of Service November 21, 2023 Assessment & Plan (1) Cellulitis: Plan: 63yo male with DM presenting with redness, pain and swelling of the RLE ongoing for the last 6 days prior to admission. Patient has been on Vancomycin for 5 days with no improvement. He is afebrile, HD stable, NAD and non-toxic in appearance RLE doppler with no DVT - blood cultures negative to date -Broad spectrum antibiotics with Zosyn and Daptomycin -Tylenol and Ibuprofen PRN pain or fever -Zofran PRN nausea (2) Type 2 diabetes mellitus: Plan: Patient reports he does not check his blood sugar -6.3 Hgb A1C -ISS, goal blood sugar 110 - 140 (3) Asthma: Plan: Patient with persistent asthma. chronic and stable No cough, SOB or wheeze -Continue Advair -Albuterol PRN Admission and Anticipated Discharge Date Admission Date: November 21, 2023 Subjective pt is with improvement in right leg, still very swollen and erythematous, scaling skin, small eschar on right second toe, has neuropathy. Physical Exam Physical Exam: still with erythema to leg, scaling to skin, edema,small eschar to toe, no other portal of entry. Results & Data Results & Data Vital Signs (Past 12 Hours) Vital Signs Temp Pulse Pulse Resp BP BP Pulse Ox 11/21/23 07:46 97.7 F 51 L 18 90/57 L 97 11/21/23 04:00 11/21/23 04:00 97.9 F 62 22 101/64 91 11/21/23 03:23 91 11/21/23 03:21 61 20 91 11/21/23 02:00 60 17 106/66 91 11/21/23 01:10 63 11/21/23 00:44 65 20 102/61 92 11/20/23 22:46 98.8 F 93 H 18 91/62 L 91 O2 Del Method O2 Flow Rate FiO2 11/21/23 07:46 Nasal Cannula 2 11/21/23 04:00 Nasal Cannula 3 11/21/23 04:00 Nasal Cannula 3 11/21/23 03:23 Nasal Cannula 3 11/21/23 03:21 Nasal Cannula 3 11/21/23 02:00 Nasal Cannula 3 11/21/23 01:10 11/21/23 00:44 Nasal Cannula 3 11/20/23 22:46 Room Air Laboratory Results review cbc review chemistry PG Care Time/CCT Total # of Minutes Spent Total Time Spent with Patient: Total time spent is greater than 50% in coordination of care (as documented) at patient's floor/unit and/or counseling patient: Coding Level of Care Code 30217 SUB INP/OBS CARE 2/35MIN Diagnoses Cellulitis L03.90 Type 2 diabetes mellitus E11.9 Asthma J45.909
--- NOTE | 2023-11-21 07:58 | XRay Report ---
XR chest 1V not portable HISTORY: 63 years-old Male Sepsis acute sepsis COMPARISON: Chest CT 01/06/2023 TECHNIQUE: AP view of the chest FINDINGS: Cardiac silhouette is enlarged. Pulmonary vascular congestion with interstitial coarsening. Moderate bibasilar opacities. Pulmonary emphysema. Surgical anchors in the right humeral head. No pneumothorax or pleural effusion. IMPRESSION: 1. Cardiomegaly with mild pulmonary edema. 2. Mild bibasilar densities suggest atelectasis versus pneumonia. ACT 112: Negative or not required by law. The above report was generated using voice recognition software. It may contain grammatical, syntax o r spelling errors. Electronically signed by: Reji Beltre M.D. 11/21/2023 7:57 AM
[2023-11-21] MEDS: FLUTICASONE/VILANTEROL 100/25MCG 14 PUFFS/INHALER INH SCH (08:30)
[2023-11-21] MEDS: ASPIRIN 81 MG ECTAB PO SCH (08:30)
[2023-11-21] MEDS: INSULIN ASPART PER UNIT CHARGE SC SCH (08:31)
--- NOTE | 2023-11-21 12:56 | Electrocardiogram Report ---
Test Reason : Blood Pressure : / mmHG Vent. Rate : 097 BPM Atrial Rate : 097 BPM P-R Int : 136 ms QRS Dur : 124 ms QT Int : 364 ms P-R-T Axes : 066 045 002 degrees QTc Int : 462 ms Normal sinus rhythm Right bundle branch block Abnormal ECG No previous ECGs available Confirmed by Justyn Adler ([id number]) on 11/21/2023 12:55:42 PM Referred By: Yair GREENE Confirmed By:Justyn Adler
[2023-11-22 06:57] LABS: Hematocrit (blood only) 41.3 % (42.0-52.0); Hemoglobin 14.4 g/dl (14.0-18.0); Mean Corpuscular Hemoglobin 30.6 pg (25.0-34.0); Mean Corpuscular Hgb Conc 34.9 g/dL (32.0-36.0); Mean Corpuscular Volume 87.9 fL (80.0-100.0); Mean Platelet Volume 9.8 fL (9.4-12.4); Platelet Count 192 K/uL (130-400); RDW Coefficient of Variation 13.4 % (11.5-14.5); RDW Standard Deviation 43.5 fL (36.4-46.3); White Blood Count 7.13 K/ul (4.8-10.8)
[2023-11-22 07:09] LABS: BUN Creatinine Ratio 13.8 (10-20); Calcium 8.2 mg/dl (8.6-10.3); Creatinine Clr Calc Pharmacy 101.2 ml/min; Est GFR (African American) 105.7 ml/min; Est GFR (Non-African American) 91.2 ml/min; Potassium 3.9 mmol/L (3.5-5.1)
--- NOTE | 2023-11-22 17:25 | Discharge Summary ---
Date of Service November 22, 2023 Admission HPI Per Admitting Provider Catracho Tapia is a 63yo male with history of BPH, DM and Asthma presenting from [facility] with redness, pain and swelling of the RLE. Patient reported that his symptoms began approximately 6 days ago with his RLE swelling. He has dried, flaking skin and progressive erythema and pain. He has had intermittent fevers as well, temperature of 101 prior to arrival. He has been on IV Vancomycin through the [facility] for the last 5 days. Unfortunately his symptoms have progressed. No additional complaints. No chest pain, cough or SOB. He had some vomiting but no diarrhea. In the ER he is afebrile, HD stable, NAD ER Course: Zosyn 4.5gm Tylenol 1gm IV NSS x 1L Principal Diagnosis right lower leg diabetic cellulitis Discharge Exam leg is with great improvement, lessened edema and erythema Discharge Data Allergies Allergy/AdvReac Type Severity Reaction Status Date / Time No Known Allergies Allergy Verified 11/21/23 01:47 Consultations 11/21/23 01:51 ED Decision to Admit Stat Ordered Studies Chest X-Ray 11/20/23 22:49 XR chest 1V not portable HISTORY: 63 years-old Male Sepsis acute sepsis COMPARISON: Chest CT 01/06/2023 TECHNIQUE: AP view of the chest FINDINGS: Cardiac silhouette is enlarged. Pulmonary vascular congestion with interstitial coarsening. Moderate bibasilar opacities. Pulmonary emphysema. Surgical anchors in the right humeral head. No pneumothorax or pleural effusion. IMPRESSION: 1. Cardiomegaly with mild pulmonary edema. 2. Mild bibasilar densities suggest atelectasis versus pneumonia. ACT 112: Negative or not required by law. The above report was generated using voice recognition software. It may contain grammatical, syntax or spelling errors. Electronically signed by: Reji Beltre M.D. 11/21/2023 7:57 AM Venous Doppler Study 11/20/23 23:50 Exam(s): US VENOUS RIGHT LOWER EXTREMITY EXAM: US Duplex Right Lower Extremity Veins CLINICAL HISTORY: Reason for exam: swelling, redness, r/o DVT. TECHNIQUE: Real-time duplex ultrasound scan of the right lower extremity veins integrating B-mode two-dimensional vascular structure, Doppler spectral analysis, color flow Doppler imaging and compression. COMPARISON: No relevant prior studies available. FINDINGS: Deep veins: Unremarkable. No DVT in the visualized common femoral, femoral, proximal deep femoral or popliteal veins. The veins demonstrate normal color flow, are normally compressible, with normal phasic flow and/or augmentation response. Superficial veins: Unremarkable. No thrombus in the visualized great saphenous vein. Soft tissues: Subcutaneous edema. No popliteal cyst. IMPRESSION: No DVT of the RIGHT lower extremity. Electronically signed by: Mike Boo MD 11/21/23 00:45 AM Hospital Course (1) Cellulitis: 63yo male with DM presenting with redness, pain and swelling of the RLE ongoing for the last 6 days prior to admission. Patient has been on Vancomycin for 5 days with no improvement. He is afebrile, HD stable, NAD and non-toxic in appearance RLE doppler with no DVT - blood cultures negative to date -Broad spectrum antibiotics with Zosyn and Daptomycin, transiton to Augmentin at discharge (2) Type 2 diabetes mellitus: Patient reports he does not check his blood sugar -6.3 Hgb A1C -ISS, goal blood sugar 110 - 140 (3) Asthma: Patient with persistent asthma. chronic and stable No cough, SOB or wheeze -Continue Advair -Albuterol PRN Total Time Total Time Spent Total Time Spent (In Minutes): It required greater than 30 minutes to prepare this patient for discharge. Discharge Plan Discharge Items [facility] Disposition: [facility] Reason For Visit: LEG PAIN, INFECTION Discharge Diagnosis: diabetic leg cellulitis Condition on Discharge: Good Activity: Per Instructions section Activity Comment: keep leg elevated when resting Non-emergency contact: Primary Care Provider Call non-emergency contact if: your symptoms worsen Follow-up/Referrals: Yair GREENE [Primary Care Provider] - Diet: Carb Consistent or DM2 Addtl Attending Provider Instructions: complete antibiotics, this will be for a total of 12 days with Augmentin wash leg aggressively and apply some lotion to hydrate to help keep skin intact Pending Studies at Discharge: No Skilled Items Patient informed of condition?: Yes DNR: No Discharge Level of Care: Other Communicable Disease: No Discharge Prognosis: Stable Lines: None Urinary Catheter: No Medications and DC Order Prescriptions: New amoxicillin-pot clavulanate 875-125 mg tablet 1 tab PO BID Qty: 24 0RF Continued metformin 1,000 mg tablet 1,000 mg PO BID aspirin 81 mg capsule 81 mg PO DAILY fluticasone propion-salmeterol [Advair Diskus] 100-50 mcg/dose Blister With Device 1 inh INHALATION BID atorvastatin 20 mg Tablet 20 mg PO DAILY albuterol sulfate 90 mcg/actuation Hfa Aerosol Inhaler 1 inh INHALATION QID PRN (Reason: Shortness Of Breath) Discontinued vancomycin 1.25 gram Recon Soln 1 g IV Q12H Rx Instructions: STARTED 11/17/23, ENDS 11/23/23--INFUSE 1.25 GM IV EVERY 12HRS OVER 125 MIN. AT 120ML/HR. Ranjit/Other Patient Handouts: Managing Type 2 Diabetes Admission Data Admit Date/Time: 11/21/23 01:57 Attending Provider: Demetrius Hay Admit Provider: Anai Acuña Primary Care Provider: Yair GREENE Other Providers: Anai Acuña Other Interventions: Discharge Summary Assessment (RN) Last Done: 11/22/23 14:57 Coding Level of Care Code 02162 INP/OBS DISCH >30 MIN Diagnoses Cellulitis L03.90 Type 2 diabetes mellitus E11.9 Asthma J45.909
== END 2023-11-22 17:17 ==
LOC: ED 22:43 → 3W 22:43 → SUATTDRO 11-21 01:57 → 3W 11-21 03:54

== ENCOUNTER 2023-11-25 11:01 | Inpatient (IN) ==
--- NOTE | 2023-11-25 11:48 | Emergency Department Note ---
Impression & Plan Cellulitis, Failure of outpatient treatment ED Provider Note NAME: SYLVESTER [id number] JOANNE AGE: 63 SEX: M : 1960 ARRIVES VIA: Walk-In INFORMANT: [Patient] ED PROVIDER(S): [Osman Carlton MD] CHIEF COMPLAINT: Right leg swelling HISTORY OF PRESENT ILLNESS: The patient is a 63-year-old male who was in our facility for a right leg cellulitis. He had been on Zosyn and daptomycin and then was transition to oral Augmentin. He is still on the Augmentin. He was discharged 3 days ago. Since being switched to the oral antibiotics, his leg has become more swollen and erythematous. He was sent back for reevaluation. The patient denies any fever or chills, no cough or congestion. No nausea or vomiting. PMHx/PSHx/Social Hx: See Below PHYSICAL EXAM: GENERAL: Patient is in no acute distress. HEENT: No acute trauma, normocephalic atraumatic, mucous membranes moist, no nasal congestion. NECK: No stridor, no adenopathy, no meningismus, trachea is midline. LUNGS: Clear to auscultation bilaterally, no wheeze, no rhonchi, breath sounds equal. HEART: Without murmurs gallops or rubs, regular rate and rhythm. ABDOMEN: Soft, nontender, no peritonitis. EXTREMITIES: No cyanosis, full range of motion of all the joints without pain or difficulty. The patient does have edema of the right lower extremity when compared to the left. There is some scaling of the skin noted to the right lower extremity. There is some subtle warmth and some right leg erythema extending from the ankle to the posterior proximal calf. No drainage. NEUROLOGIC: Oriented x 3, no acute motor or sensory deficits, no focal weakness. SKIN: No jaundice, no diaphoresis. DIFFERENTIAL DIAGNOSIS: Cellulitis, failed outpatient management, DVT, sepsis or bacteremia, among others. EMERGENCY DEPARTMENT PROCEDURES: MEDICAL DECISION MAKING: There is no leukocytosis or worrisome anemia. There is a normal platelet count. No coagulopathy. No renal failure or significant electrolyte abnormality. No concerning liver enzyme elevation. Lactic acid level is not elevated making severe sepsis less likely. Urinalysis does not show findings of infection. COVID test did return positive. Right leg ultrasound does not show findings of DVT. On exam, the patient did have a right lower extremity cellulitis present. The patient was given IV daptomycin and IV Zosyn, these were the antibiotics that were successful with his last hospitalization. I did speak with the medical staff coverage at the [facility]. The patient would not be able to be discharged back to their facility as the appropriate antibiotics would not be available until Tuesday, 3 days from today. The patient will be hospitalized until he can be discharged back to the [facility]. I did speak with the guards, the patient, case management and the on- call hospitalist. Prior/Outside records/notes reviewed: Discharge summary note from 11/22/2023 discussing his admission for cellulitis. Imaging/x-ray results per my interpretation: There is no pneumothorax, pneumonia or CHF. Cardiomegaly was seen. Chronic Medical/Social conditions affecting care: Incarcerated currently. Care/Management discussed with: The medical staff at the [facility], case management, the on-call hospitalist. Level of care consideration(s): After review of the information above and other included data: --I believe the patient requires escalation of care to admission DISPOSITION: Admission Past Med/Surg History Medical History BPH w/o urinary obs/LUTS Type 2 diabetes mellitus Inmate in correctional facility Xerosis cutis Mild intermittent asthma Antisocial personality disorder Opioid use disorder Surgical History No history of previous surgery none listed on [facility] record Social History Smoking Status: Former smoker Cigarettes Per Day: 1; Second Hand Exposure: No; Do You Dip or Chew Tobacco: No; Hx Alcohol Use: No Hx Substance Use: No Preferred Language: Argentine Communication Ability: Effective Machine Sign Writer Required: No Beliefs That Will Affect Care: None Current Living Situation: Other Current Living Situation Comment: [facility] Other Information That Helps Us Care for You: No Feels Safe at Home: Yes Safety Concerns: Feels Safe At This Time Assistive Devices: Cane Allergies Allergies Allergy/AdvReac Type Severity Reaction Status Date / Time No Known Allergies Allergy Verified 11/25/23 15:28 Home Meds Home Medications Medication Instructions Recorded Confirmed aspirin 81 mg capsule 81 mg PO DAILY 01/03/23 11/25/23 metformin 1,000 mg tablet 1,000 mg PO BID 01/03/23 11/25/23 atorvastatin 20 mg tablet 20 mg PO DAILY 01/06/23 11/25/23 fluticasone 100 mcg-salmeterol 50 1 inh inhalation BID 03/10/23 11/25/23 mcg/dose blistr powdr for inhalation (Advair Diskus) albuterol sulfate 90 mcg/actuation 1 inh inhalation QID PRN Shortness 11/21/23 11/25/23 aerosol inhaler Of Breath Previous Rx's Medication Instructions Recorded amoxicillin 875 mg-potassium 1 tab PO BID #24 tabs 11/22/23 clavulanate 125 mg tablet Results & Data (ED) Vital Signs Vital Signs - 24 hr 11/25/23 11:10 Temperature 36.7 C Temperature Source Skin Pulse Rate 63 Respiratory Rate 18 Blood Pressure 111/73 Blood Pressure Mean 85 Pulse Oximetry 96 Oxygen Delivery Method Room Air Sepsis Recent Fever Within 48 Hours No Sepsis New/Unexplained Change in Mental Status No Sepsis Action Taken by Nursing No Action Required Home Medications Current Medication List: was personally reviewed by me Laboratory Data Attestation: I reviewed the patient's lab results. 11/25/23 11:45 11/25/23 11:45 Lab Results 11/25/23 Range/Units 11:45 WBC 5.54 (4.8-10.8) K/ul RBC 4.77 (4.70-6.10) M/uL Hgb 14.5 (14.0-18.0) g/dl Hct 43.6 (42.0-52.0) % MCV 91.4 (80.0-100.0) fL MCH 30.4 (25.0-34.0) pg MCHC 33.3 (32.0-36.0) g/dL RDW Std Deviation 45.5 (36.4-46.3) fL RDW Coeff of Ingrid 13.4 (11.5-14.5) % Plt Count 201 (130-400) K/uL MPV 9.9 (9.4-12.4) fL Immature Gran % (Auto) 0.5 % Neut % (Auto) 48.3 % Lymph % (Auto) 39.4 % Louisa % (Auto) 8.7 % Eos % (Auto) 2.2 % Baso % (Auto) 0.9 % Neut # (Auto) 2.68 (1.40-6.50) K/uL Lymph # (Auto) 2.18 (1.20-3.40) K/uL Louisa # (Auto) 0.48 (0.11-0.59) K/uL Eos # (Auto) 0.12 (0.00-0.50) K/uL Baso # (Auto) 0.05 (0.00-0.20) K/uL Immature Gran # (Auto) 0.03 (0.01-0.20) K/uL PT 11.9 (9.0-12.0) Seconds INR 1.1 (0.9-1.1) APTT 29 (21-31) Seconds PTT Ratio 1.0 Sodium 136 (136-145) mmol/L Potassium 4.3 (3.5-5.1) mmol/L Chloride 104 (98-107) mmol/L Carbon Dioxide 28 (21-32) mmol/L Anion Gap 4 (3-11) BUN 18 (6-23) mg/dl Creatinine 0.87 (0.6-1.4) mg/dl Est Cr Clr Drug Dosing 99.2 ml/min Est GFR ( Amer) 105.7 ml/min Est GFR (Non-Af Amer) 91.2 ml/min BUN/Creatinine Ratio 20.7 H (10-20) Glucose 93 (70-99(Fasting)) mg/dl Lactate 1.4 (0.4-2.0) mmol/L Calcium 9.0 (8.6-10.3) mg/dl Magnesium 1.8 (1.7-2.4) mg/dl Total Bilirubin 0.4 (0.2-1.0) mg/dl AST 24 (13-39) U/L ALT 21 (7-52) U/L Alkaline Phosphatase 47 (34-104) U/L Total Protein 7.7 (6.0-8.3) gm/dl Albumin 3.6 (3.4-5.0) gm/dl Globulin 4.1 H (2.5-4.0) gm/dl Albumin/Globulin Ratio 0.9 (0.9-2) Administered Medications Enoxaparin Sodium (Enoxaparin Inj 40 Mg/0.4 Ml Syr) 40 mg SQ Q24H ISAIAH Stop: 12/25/23 20:59 Last Admin: 11/25/23 18:29 Dose: 40 mg Documented By: HOWIE Piperacillin Sod/Tazobactam (Sod 4.5 gm/ Dextrose) 100 mls @ 25 mls/hr IV Q8H ISAIAH; Protocol Stop: 12/02/23 17:59 Last Admin: 11/25/23 18:28 Dose: 25 mls/hr Documented By: HOWIE Insulin Aspart (Insulin Aspart Per Unit Charge) 0 units SC ACHS ISAIAH Stop: 12/25/23 16:29 Last Admin: 11/25/23 18:01 Dose: Not Given Documented By: HOWIE Co-signed By: DM Discontinued Medications Piperacillin Sod/Tazobactam (Sod 4.5 gm/ Dextrose) 100 mls @ 200 mls/hr IV NOW ONE; Protocol Stop: 11/25/23 12:11 Last Infusion: 11/25/23 16:22 Dose: Infused Documented By: Admin: 11/25/23 12:34 Dose: 200 mls/hr Documented By: ALONDRA Daptomycin 500 mg/ Syringe 10 mls @ 5 mls/min IV NOW STA; Protocol Stop: 11/25/23 11:43 Last Admin: 11/25/23 12:11 Dose: 5 mls/min Documented By: ALONDRA Lidocaine (Lidocaine 5% 1 Patch) 1 patch TD NOW STA Stop: 11/25/23 15:03 Last Admin: 11/25/23 15:15 Dose: 1 patch Documented By: CHRIS Imaging Data Radiologist's Impression: Venous Doppler Study 11/25/23 11:41 ULTRASOUND RIGHT LOWER EXTREMITY VENOUS CLINICAL HISTORY: Right leg swelling. COMPARISON STUDY: Right lower extremity venous ultrasound dated 11/21/2023 TECHNIQUE: Real-time, grayscale, and color Doppler sonography of the deep veins of the right lower extremity was performed from the inguinal crease to the calf. Compression and augmentation were utilized. FINDINGS: There is no sonographic evidence of deep venous thrombosis identified in the right lower extremity. The common femoral, superficial femoral, and popliteal veins are patent and normally compressible. The greater saphenous vein and the profunda femoris vein at the junction with the common femoral vein are clear. The visualized calf veins are patent. Prominent inguinal lymph nodes are likely reactive. Soft tissue edema is seen in the right calf. IMPRESSION: There is no sonographic evidence of deep venous thrombosis identified in the right lower extremity. ACT 112: Negative or not required by law. Electronically signed by: Osman Klein M.D. 11/25/2023 1:47 PM Discharge Plan Visit Data Chief Complaint: Swelling/Edema to Extremity Stated Complaint: LEG SWELLING ED Provider: Osman Carlton Discharge Problem: Cellulitis, Failure of outpatient treatment Patient Disposition: Admitted As Inpatient Condition: Fair Discharge Instructions Interventions: ED Discharge Assessment Last Done: 11/25/23 15:57 Discharge Problem: Cellulitis Qualifiers: Site of cellulitis: extremity Site of cellulitis of extremity: lower extremity Laterality: right Qualified Code(s): L03.115 - Cellulitis of right lower limb
[2023-11-25] MEDS: DAPTOmycin 500 MG in SYRINGE 0 ML IV STA (12:11)
[2023-11-25 12:14] LABS: Basophils # (auto) 0.05 K/uL (0.00-0.20); Basophils % (auto) 0.9 %; Eosinophils # (auto) 0.12 K/uL (0.00-0.50); Eosinophils % (auto) 2.2 %; Hematocrit (blood only) 43.6 % (42.0-52.0); Hemoglobin 14.5 g/dl (14.0-18.0); Immature Granulocytes # (auto) 0.03 K/uL (0.01-0.20); Immature Granulocytes % (auto) 0.5 %; Lymphocytes # (auto) 2.18 K/uL (1.20-3.40); Lymphocytes % (auto) 39.4 %; Mean Corpuscular Hemoglobin 30.4 pg (25.0-34.0); Mean Corpuscular Hgb Conc 33.3 g/dL (32.0-36.0); Mean Corpuscular Volume 91.4 fL (80.0-100.0); Mean Platelet Volume 9.9 fL (9.4-12.4); Monocytes # (auto) 0.48 K/uL (0.11-0.59); Monocytes % (auto) 8.7 %; Neutrophils # (auto) 2.68 K/uL (1.40-6.50); Neutrophils % (auto) 48.3 %; Platelet Count 201 K/uL (130-400); RDW Coefficient of Variation 13.4 % (11.5-14.5); RDW Standard Deviation 45.5 fL (36.4-46.3); Red Blood Count 4.77 M/uL (4.70-6.10); White Blood Count 5.54 K/ul (4.8-10.8)
[2023-11-25 12:31] LABS: Albumin Globulin Ratio 0.9 (0.9-2); Albumin Level 3.6 gm/dl (3.4-5.0); BUN Creatinine Ratio 20.7 (10-20); Bilirubin,Total 0.4 mg/dl (0.2-1.0); Creatinine Clr Calc Pharmacy 99.2 ml/min; Est GFR (African American) 105.7 ml/min; Est GFR (Non-African American) 91.2 ml/min; Globulin 4.1 gm/dl (2.5-4.0); Magnesium 1.8 mg/dl (1.7-2.4); Potassium 4.3 mmol/L (3.5-5.1); Total Protein 7.7 gm/dl (6.0-8.3)
[2023-11-25] MEDS: PIPERACILLIN/TAZOBACTAM 4.5 GM in DEXTROSE 5% MINI-B 100 ML IV ONE (12:34)
[2023-11-25 12:51] LABS: INR 1.1 (0.9-1.1); Partial Thromboplastin Time 29 Seconds (21-31); Prothrombin Time 11.9 Seconds (9.0-12.0)
--- NOTE | 2023-11-25 13:49 | Ultrasound Report ---
ULTRASOUND RIGHT LOWER EXTREMITY VENOUS CLINICAL HISTORY: Right leg swelling. COMPARISON STUDY: Right lower extremity venous ultrasound dated 11/21/2023 TECHNIQUE: Real-time, grayscale, and color Doppler sonography of the deep veins of the right lower ex tremity was performed from the inguinal crease to the calf. Compression and augmentation were utilize d. FINDINGS: There is no sonographic evidence of deep venous thrombosis identified in the right lower ex tremity. The common femoral, superficial femoral, and popliteal veins are patent and normally beverley sible. The greater saphenous vein and the profunda femoris vein at the junction with the common femor al vein are clear. The visualized calf veins are patent. Prominent inguinal lymph nodes are likely re active. Soft tissue edema is seen in the right calf. IMPRESSION: There is no sonographic evidence of deep venous thrombosis identified in the right lower extremity. ACT 112: Negative or not required by law. Electronically signed by: Osman Klein M.D. 11/25/2023 1:47 PM
[2023-11-25] MEDS ORDERED: GLUCAGON FOR INJ 1 MG VIAL SQ PRN (14:13)
[2023-11-25] MEDS ORDERED: GLUCOSE 10 TAB/TUBE PO PRN (14:13)
[2023-11-25] MEDS ORDERED: CARBOHYDRATES FOR HYPOGLYCEMIA PO PRN (14:13)
[2023-11-25] MEDS ORDERED: GLUCOSE 40% GEL 15 GM TUBE PO PRN (14:13)
[2023-11-25] MEDS ORDERED: DEXTROSE 50% 50 ML SYRINGE IV PRN (14:13)
--- NOTE | 2023-11-25 14:13 | History & Physical Report ---
Date of Service November 25, 2023 Assessment & Plan (1) Cellulitis of right leg: Plan: -Admit to med/surge -Patient's cellulitis progressed once he was discharged back to [facility] on 11/22/23 on Augmentin -Had been improving on IV Daptomycin/Zosyn -RAMONA Mazariegos cannot start new infusions of Zosyn/Daptomycin until 11/28, therefore he will be admitted to our facility until then -Will continue him on Daptomycin and Zosyn as this is what was working last admission -No fever or leukocytosis, blood cultures were obtained -Pain control with tylenol for now at patient's request -Hold statin while on Daptomycin -SQ lovenox for DVT PPX -HH/DMII diet -AM CBC, bmp, mag (2) Left sided abdominal pain: Plan: -Patient noted chronic left-sided lower rib/upper abd discomfort -Essentially relieved at rest but exacerbated with palpation/laying on left side -Denies changes in bowel habits, dysuria, hematuria, melena, SOB, or other chest pain -Labs are WNL -Will obtain UA and CXR for further evaluation -Continue with prn tylenol and lidocaine pain for now (3) Asthma: Plan: -Stable on RA -Lungs are clear -Incentive spirometry and prn albuterol (4) Type 2 diabetes mellitus: Plan: -Hold metformin -Did not require coverage last admission -Will monitor BSG ACHS for now with CF of 50 ACHS -Hold basal insulin and carb coverage for now -HH/DMII diet (5) BPH w/o urinary obs/LUTS: Plan: -Monitor for urinary retention Plan The patient was discussed with Dr. Quispe at the time of the admission History of Present Illness Chief Complaint: Recurrent RLE cellulitis Primary Care Provider: RAMONA Tapia is a 63yo male with history of recent admission to [facility] ED from 11/21-/11/22 for RLE cellulitis, BPH, DMII and Asthma presenting from [facility] on 11/25/23 due to concerns of recurrent RLE cellulitis. He remained stable and afebrile in the ED. Labs including CBC and CMP were unremarkable. Venous doppler of the RLE was negative for signs of DVT. Prior to admission the patient was given a dose of Daptomycin and Zosyn. Per the ED staff, they spoke with RAMONA Dayner who will eventually be able to give him Daptomycin/Zosyn, but this cannot be arranged until Tuesday (11/28/23). Until then he will be admitted to our service. At the time of the exam the patient was lying in bed in no acute distress. He states that his RLE cellulitis was improving while on the abx he was receiving while admitted to our facility. However, shortly after he was discharged back to the group home his swelling, erythema, and pain progressed. He states that the pain is currently a 5/10. he denies recent fever, chills, chest pain, SOB, cough, nausea, vomiting, diarrhea, dysuria hematuria, melena, and recent trauma. He does note some mild (3/10), left upper quadrant pain which has been present for multiple months. He states that it is most painful when he is laying on his left side. While lying on his back the pain is resolved. The patient does not change when he eats, has a bowel movement, or when he urinates. It has not radiated to any other part of his body. He does mention he previously broke some of his lower left ribs. Please refer to Dr. Quispe's attestation for any changes to the treatment plan Allergies Allergy/AdvReac Type Severity Reaction Status Date / Time No Known Allergies Allergy Verified 11/25/23 15:28 Home Medications Medication Instructions Recorded Confirmed Type aspirin 81 mg capsule 81 mg PO DAILY 01/03/23 11/25/23 History metformin 1,000 mg tablet 1,000 mg PO BID 01/03/23 11/25/23 History atorvastatin 20 mg tablet 20 mg PO DAILY 01/06/23 11/25/23 History fluticasone 100 mcg-salmeterol 50 1 inh inhalation BID 03/10/23 11/25/23 History mcg/dose blistr powdr for inhalation (Advair Diskus) albuterol sulfate 90 mcg/actuation 1 inh inhalation QID PRN Shortness 11/21/23 11/25/23 History aerosol inhaler Of Breath amoxicillin 875 mg-potassium 1 tab PO BID #24 tabs 11/22/23 11/25/23 Rx clavulanate 125 mg tablet Past Med/Surg History Medical History BPH w/o urinary obs/LUTS Type 2 diabetes mellitus Inmate in correctional facility Xerosis cutis Mild intermittent asthma Antisocial personality disorder Opioid use disorder Surgical History No history of previous surgery none listed on [facility] record Social History Smoking Status: Former smoker Cigarettes Per Day: 1; Second Hand Exposure: No; Do You Dip or Chew Tobacco: No; Hx Alcohol Use: No Hx Substance Use: No Preferred Language: Zimbabwean Communication Ability: Effective Chef Teacher Required: No Beliefs That Will Affect Care: None Current Living Situation: Other Current Living Situation Comment: [facility] Other Information That Helps Us Care for You: No Feels Safe at Home: Yes Safety Concerns: Feels Safe At This Time Assistive Devices: Cane Physical Exam Physical Exam: Physical Exam: General: In no acute distress, stated age, well-nourished, good hygiene HEENT: Normocephalic, atraumatic, no scleral icterus, pupils around round, symmetrical, and reactive to light, moist mucus membranes, trachea midline, no thyromegaly Chest/Pulm: No respiratory distress, symmetrical chest expansion, clear breath sounds throughout Cardiac: RRR, no murmurs noted Abdomen: Negative for ascites and bruising, normoactive bowel sounds, soft, minimally tender to palpation in the lower left ribs/left upper quadrant without rebound tenderness Musculoskeletal: Symmetrical and without signs of acute trauma, upper and lower extremities with full ROM, no atrophy, spasticity, or flaccidity Extremities: Radial, dorsalis pedis, and posterior tibial pulses are intact and symmetrical, RLE is currently swollen compared to left Skin: RLE is currently swollen, erythematous, and tender from the proximal ankle to the distal right knee Neuro: Alert and oriented to person, place, month, year, and president, no focal defects,no tremors noted Psych: No acute distress, calm and cooperative during the exam Results & Data Results & Data Vital Signs (Past 12 Hours) Vital Signs Temp Pulse Resp BP Pulse Ox O2 Del Method 11/25/23 11:10 36.7 C 63 18 111/73 96 Room Air Laboratory Results Abnormal lab results 11/25/23 Range/Units 11:45 BUN/Creatinine Ratio 20.7 H (10-20) Globulin 4.1 H (2.5-4.0) gm/dl Diagnostic Findings Venous Doppler Study 11/25/23 11:41 ULTRASOUND RIGHT LOWER EXTREMITY VENOUS CLINICAL HISTORY: Right leg swelling. COMPARISON STUDY: Right lower extremity venous ultrasound dated 11/21/2023 TECHNIQUE: Real-time, grayscale, and color Doppler sonography of the deep veins of the right lower extremity was performed from the inguinal crease to the calf. Compression and augmentation were utilized. FINDINGS: There is no sonographic evidence of deep venous thrombosis identified in the right lower extremity. The common femoral, superficial femoral, and popliteal veins are patent and normally compressible. The greater saphenous vein and the profunda femoris vein at the junction with the common femoral vein are clear. The visualized calf veins are patent. Prominent inguinal lymph nodes are likely reactive. Soft tissue edema is seen in the right calf. IMPRESSION: There is no sonographic evidence of deep venous thrombosis identified in the right lower extremity. ACT 112: Negative or not required by law. Electronically signed by: Osman Klein M.D. 11/25/2023 1:47 PM Code Status & VTE Plan Code Status Full code VTE Prophylaxis Plan VTE Prophylaxis will be ordered: Yes Supervising Physician Co-Signing Physician Notes I personally saw and examined the patient. I verified all mendez points and agree with Jaya Wetzel PA-C with the following exceptions and/or additions: 63 year old male presents to the ER with recurrent right lower extremity cellulitis. Improved on daptomycin and Zosyn but recurrent after switching to Augmentin on discharge. Plan to return to [facility] on Zosyn and daptomycin but first available time they can get this is Tuesday. O/E HS RRR, no murmurs, Chest CTAB, Abdo SNT, Right lower extremity swelling and erythema from knee to ankle A/P Right lower extremity cellulitis - IV Zosyn and daptomycin PG Care Time/CCT Total # of Minutes Spent Total Time Spent with Patient: Total time spent is greater than 50% in coordination of care (as documented) at patient's floor/unit and/or counseling patient: [place] [address] INT INP/OBS CARE 2/55MIN Patient Type Established Medical Decision Making High Complexity Diagnoses Cellulitis of right leg L03.115 Left sided abdominal pain R10.9 Asthma J45.909 Type 2 diabetes mellitus E11.9 BPH w/o urinary obs/LUTS N40.0
--- NOTE | 2023-11-25 15:03 | XRay Report ---
XR chest 1V portable CLINICAL HISTORY: low chest/upper left abd pain COMPARISON STUDY: Chest CT January 06, 2023. Chest radiograph November 20, 2023. FINDINGS: Patient is mildly rotated. There is no pneumothorax or pleural effusion. There is no consol idation or evidence for pulmonary edema. Mild cardiomegaly is unchanged. Allowing for patient rotatio n, mediastinal contours are stable. IMPRESSION: No acute cardiopulmonary findings. Cardiomegaly. ACT 112: Negative or not required by law. Electronically signed by: Alberto Lloyd M.D. 11/25/2023 3:02 PM
[2023-11-25] MEDS: LIDOCAINE 5% 1 PATCH TD STA (15:15)
[2023-11-25 17:16] LABS: Appearance Urine Clear (Clear); Bilirubin Urine Negative (Negative); Blood Urine Negative (Negative); Color Urine Yellow; Glucose Urine UA Negative (Negative); Ketones Urine Negative (Negative); Leukocyte Esterase Urine Negative (Negative); Nitrite Urine Negative (Negative); Protein Urine Negative (Negative); Specific Gravity Urine 1.015 (1.000-1.030); Urobilinogen Urine Negative (Negative); pH Urine 5.5 (4.5-7.5)
[2023-11-25] MEDS: INSULIN ASPART PER UNIT CHARGE SC SCH (18:01)
[2023-11-25] MEDS: PIPERACILLIN/TAZOBACTAM 4.5 GM in DEXTROSE 5% MINI-B 100 ML IV SCH (18:28)
[2023-11-25] MEDS: ENOXAPARIN INJ 40 MG/0.4 ML SYR SQ SCH (18:29)
[2023-11-25] MEDS: ACETAMINOPHEN 325 MG TAB PO PRN (19:52)
[2023-11-26 07:11] LABS: Hematocrit (blood only) 40.4 % (42.0-52.0); Mean Corpuscular Hemoglobin 30.8 pg (25.0-34.0); Mean Corpuscular Hgb Conc 34.7 g/dL (32.0-36.0); Mean Platelet Volume 9.7 fL (9.4-12.4); Platelet Count 181 K/uL (130-400); RDW Coefficient of Variation 13.3 % (11.5-14.5); RDW Standard Deviation 43.6 fL (36.4-46.3); Red Blood Count 4.54 M/uL (4.70-6.10); White Blood Count 5.03 K/ul (4.8-10.8)
[2023-11-26 07:30] LABS: ALC (manual) 1.66 K/uL (1.2-3.4); ANC (manual) 2.82 K/uL (1.4-6.5); Basophils % (manual) 2 %; Eosinophils # (manual) 0.15 K/uL (0-0.50); Eosinophils % (manual) 3 %; Lymphocytes # (manual) 1.11 K/uL (1.2-3.4); Lymphocytes % (manual) 22 %; Monocytes % (manual) 6 %; Neutrophils # (manual) 2.82 K/uL (1.40-6.50); Neutrophils % (manual) 56 %; Reactive Lymphocytes # (manual) 0.55 K/uL; Reactive Lymphocytes % (manual) 11 %
[2023-11-26 07:50] LABS: BUN Creatinine Ratio 17.9 (10-20); Calcium 8.4 mg/dl (8.6-10.3); Creatinine Clr Calc Pharmacy 101.4 ml/min; Est GFR (African American) 107.2 ml/min; Est GFR (Non-African American) 92.5 ml/min
[2023-11-26] MEDS: DAPTOmycin 325 MG in SYRINGE 0 ML IV SCH (13:30)
--- NOTE | 2023-11-26 14:34 | Hospitalist Progress Note ---
Date of Service November 26, 2023 Assessment & Plan (1) Cellulitis of right leg: Plan: Apparent failure of oral Augmentin. He is now on Zosyn and daptomycin. ID consult has been requested (2) Left sided abdominal pain: Plan: No significant findings. Supportive care. Symptomatic pain management (3) Asthma: Plan: Stable. Continue current medical management (4) Type 2 diabetes mellitus: Plan: ADA diet. Sliding scale coverage as needed. Metformin has been restarted (5) BPH w/o urinary obs/LUTS: Plan: Stable. Continue current medical management Plan Hopeful return to [facility] on November 28 Admission and Anticipated Discharge Date Admission Date: November 25, 2023 Subjective Alert and oriented. No distress. He believes the right lower extremity cellulitis is improving. He is now on intravenous Zosyn and Dapto. It appears he failed oral Augmentin treatment. Metformin has been restarted. Right lower extremity venous Doppler is negative for DVT. Review of Systems 2 Review of Systems: Constitutional-no fever or chills ENT-no blurred vision, no double vision, no epistaxis, no sore throat Respiratory-no cough, no wheezing, no shortness of breath Cardiac-no palpitations, no chest pain, no syncope GI-no nausea, vomiting, diarrhea, melena, hematochezia -no urinary retention, no urinary incontinence, no dysuria, no hematuria Musculoskeletal-no joint pain, no muscle tenderness Skin-no bruising, no rashes, no pruritus Neuro-no isolated weakness, no paresthesia, no weakness Psych-no depression, no anxiety Physical Exam 2 Physical Exam: General-alert and oriented x3, no fever, no chills HEENT-head atraumatic and normocephalic, pupils equal and reactive to light, extraocular muscles intact Neck-no lymphadenopathy or thyromegaly, trachea midline Chest-clear to auscultation. No rales, wheezing or rhonchi Cardiac-regular rate and rhythm, normal S1 and S2 Abdomen-normal bowel sounds, nontender, no hepatosplenomegaly Extremities-erythema noted right lower extremity below the knee. Mild tenderness. Neuro-cranial nerves II through XII intact, motor and sensory function within normal limits, strength symmetrical, no focal deficits Psych-normal affect, normal mood Results & Data Results & Data Vital Signs (Past 12 Hours) Vital Signs Temp Pulse Resp BP Pulse Ox O2 Del Method 11/26/23 07:22 36.5 C 79 16 104/63 94 Room Air Laboratory Results 11/26/23 06:51 11/26/23 06:51 PG Care Time/CCT Total # of Minutes Spent Total Time Spent with Patient: Total time spent is greater than 50% in coordination of care (as documented) at patient's floor/unit and/or counseling patient: Coding Level of Care Code 98814 SUB INP/OBS CARE 3/50MIN Diagnoses Cellulitis of right leg L03.115 Left sided abdominal pain R10.9 Asthma J45.909 Type 2 diabetes mellitus E11.9 BPH w/o urinary obs/LUTS N40.0
[2023-11-26] MEDS: metFORMIN HCL 500 MG TAB PO SCH (17:49)
[2023-11-27 08:03] LABS: Basophils # (auto) 0.08 K/uL (0.00-0.20); Basophils % (auto) 1.2 %; Eosinophils # (auto) 0.12 K/uL (0.00-0.50); Eosinophils % (auto) 1.9 %; Hematocrit (blood only) 44.1 % (42.0-52.0); Hemoglobin 14.7 g/dl (14.0-18.0); Immature Granulocytes # (auto) 0.02 K/uL (0.01-0.20); Immature Granulocytes % (auto) 0.3 %; Lymphocytes # (auto) 2.43 K/uL (1.20-3.40); Lymphocytes % (auto) 37.5 %; Mean Corpuscular Hgb Conc 33.3 g/dL (32.0-36.0); Mean Platelet Volume 9.5 fL (9.4-12.4); Monocytes # (auto) 0.57 K/uL (0.11-0.59); Monocytes % (auto) 8.8 %; Neutrophils # (auto) 3.26 K/uL (1.40-6.50); Neutrophils % (auto) 50.3 %; Platelet Count 206 K/uL (130-400); RDW Coefficient of Variation 13.3 % (11.5-14.5); RDW Standard Deviation 43.8 fL (36.4-46.3); White Blood Count 6.48 K/ul (4.8-10.8)
[2023-11-27 08:25] LABS: BUN Creatinine Ratio 15.5 (10-20); Creatinine Clr Calc Pharmacy 101.5 ml/min; Est GFR (African American) 107.2 ml/min; Est GFR (Non-African American) 92.5 ml/min; Potassium 4.5 mmol/L (3.5-5.1)
--- NOTE | 2023-11-27 14:18 | Hospitalist Progress Note ---
Date of Service November 27, 2023 Assessment & Plan (1) Cellulitis of right leg: Plan: Apparent failure of oral Augmentin. He is now on Zosyn and daptomycin. ID consult has been requested and remains pending (2) Left sided abdominal pain: Plan: No significant findings. Supportive care. Symptomatic pain management (3) Asthma: Plan: Stable. Continue current medical management (4) Type 2 diabetes mellitus: Plan: ADA diet. Sliding scale coverage as needed. He states that he does not typically take metformin. It was ordered from his medication list and subsequently discontinued when he said he does not take it. (5) BPH w/o urinary obs/LUTS: Plan: Stable. Continue current medical management Plan Hopeful return to [facility] on November 28 Admission and Anticipated Discharge Date Admission Date: November 27, 2023 Subjective Alert and oriented. Metformin was ordered since it was on his home medication list but he states he does not take it and it since has been discontinued. Right lower extremity cellulitis looks better. He remains on intravenous Zosyn and daptomycin. Infectious disease consultation pending. He will return to the [facility] tomorrow, November 28 Review of Systems 2 Review of Systems: Constitutional-no fever or chills ENT-no blurred vision, no double vision, no epistaxis, no sore throat Respiratory-no cough, no wheezing, no shortness of breath Cardiac-no palpitations, no chest pain, no syncope GI-no nausea, vomiting, diarrhea, melena, hematochezia -no urinary retention, no urinary incontinence, no dysuria, no hematuria Musculoskeletal-no joint pain, no muscle tenderness Skin-no bruising, no rashes, no pruritus Neuro-no isolated weakness, no paresthesia, no weakness Psych-no depression, no anxiety Physical Exam 2 Physical Exam: General-alert and oriented x3, no fever, no chills HEENT-head atraumatic and normocephalic, pupils equal and reactive to light, extraocular muscles intact Neck-no lymphadenopathy or thyromegaly, trachea midline Chest-clear to auscultation. No rales, wheezing or rhonchi Cardiac-regular rate and rhythm, normal S1 and S2 Abdomen-normal bowel sounds, nontender, no hepatosplenomegaly Extremities-erythema noted right lower extremity below the knee is resolving. Mild tenderness. Neuro-cranial nerves II through XII intact, motor and sensory function within normal limits, strength symmetrical, no focal deficits Psych-normal affect, normal mood Results & Data Results & Data Vital Signs (Past 12 Hours) Vital Signs Temp Pulse Resp BP Pulse Ox O2 Del Method 11/27/23 07:58 36.6 C 59 L 16 105/68 94 Room Air Laboratory Results 11/27/23 07:38 11/27/23 07:38 PG Care Time/CCT Total # of Minutes Spent Total Time Spent with Patient: Total time spent is greater than 50% in coordination of care (as documented) at patient's floor/unit and/or counseling patient: Coding Level of Care Code 71987 SUB INP/OBS CARE 3/50MIN Diagnoses Cellulitis of right leg L03.115 Left sided abdominal pain R10.9 Asthma J45.909 Type 2 diabetes mellitus E11.9 BPH w/o urinary obs/LUTS N40.0
[2023-11-28 09:11] LABS: Basophils % (auto) 1.3 %; Eosinophils # (auto) 0.11 K/uL (0.00-0.50); Eosinophils % (auto) 1.4 %; Hematocrit (blood only) 41.6 % (42.0-52.0); Hemoglobin 14.6 g/dl (14.0-18.0); Immature Granulocytes # (auto) 0.03 K/uL (0.01-0.20); Immature Granulocytes % (auto) 0.4 %; Lymphocytes # (auto) 2.83 K/uL (1.20-3.40); Mean Corpuscular Hemoglobin 31.1 pg (25.0-34.0); Mean Corpuscular Hgb Conc 35.1 g/dL (32.0-36.0); Mean Corpuscular Volume 88.5 fL (80.0-100.0); Mean Platelet Volume 9.6 fL (9.4-12.4); Monocytes # (auto) 0.69 K/uL (0.11-0.59); Monocytes % (auto) 8.8 %; Neutrophils # (auto) 4.11 K/uL (1.40-6.50); Neutrophils % (auto) 52.1 %; Platelet Count 207 K/uL (130-400); RDW Coefficient of Variation 13.3 % (11.5-14.5); RDW Standard Deviation 43.6 fL (36.4-46.3); White Blood Count 7.87 K/ul (4.8-10.8)
[2023-11-28 09:18] LABS: BUN Creatinine Ratio 18.1 (10-20); Creatinine Clr Calc Pharmacy 90.8 ml/min; Est GFR (African American) 98.9 ml/min; Est GFR (Non-African American) 85.3 ml/min; Potassium 3.9 mmol/L (3.5-5.1)
--- NOTE | 2023-11-28 13:00 | Discharge Summary ---
Date of Service November 28, 2023 Admission HPI Per Admitting Provider Catracho Tapia is a 63yo male with history of recent admission to [facility] ED from 11/21- for RLE cellulitis, BPH, DMII and Asthma presenting from [facility] on 11/25/23 due to concerns of recurrent RLE cellulitis. He remained stable and afebrile in the ED. Labs including CBC and CMP were unremarkable. Venous doppler of the RLE was negative for signs of DVT. Prior to admission the patient was given a dose of Daptomycin and Zosyn. Per the ED staff, they spoke with [facility] who will eventually be able to give him Daptomycin/Zosyn, but this cannot be arranged until Tuesday (11/28/23). Until then he will be admitted to our service. At the time of the exam the patient was lying in bed in no acute distress. He states that his RLE cellulitis was improving while on the abx he was receiving w hile admitted to our facility. However, shortly [facility] his swelling, erythema, and pain progressed. He states that the pain is currently a 5/10. he denies recent fever, chills, chest pain, SOB, cough, nausea, vomiting, diarrhea, dysuria hematuria, melena, and recent trauma. He does note some mild (3/10), left upper quadrant pain which has been present for multiple months. He states that it is most painful when he is laying on his left side. While lying on his back the pain is resolved. The patient does not change when he eats, has a bowel movement, or when he urinates. It has not radiated to any other part of his body. He does mention he previously broke some of his lower left ribs. Please refer to Dr. Quispe's attestation for any changes to the treatment plan Principal Diagnosis Recurrent cellulitis right lower extremity, outpatient oral antibiotic failure Discharge Exam General-alert and oriented x3, no fever, no chills HEENT-head atraumatic and normocephalic, pupils equal and reactive to light, extraocular muscles intact Neck-no lymphadenopathy or thyromegaly, trachea midline Chest-clear to auscultation. No rales, wheezing or rhonchi Cardiac-regular rate and rhythm, normal S1 and S2 Abdomen-normal bowel sounds, nontender, no hepatosplenomegaly Extremities-erythema noted right lower extremity below the knee is resolving. Tenderness has resolved Neuro-cranial nerves II through XII intact, motor and sensory function within normal limits, strength symmetrical, no focal deficits Psych-normal affect, normal mood Discharge Data Allergies Allergy/AdvReac Type Severity Reaction Status Date / Time No Known Allergies Allergy Verified 11/25/23 15:28 Consultations 11/25/23 13:45 ED Decision to Admit Stat 11/26/23 14:34 Consult Infectious Diseases Routine Ordered Studies 11/25/23 11:41 US venous doppler LE RT Stat Hospital Course (1) Cellulitis of right leg: Apparent failure of oral Augmentin. He is now on Zosyn and daptomycin. He will remain on IV antibiotics for 1 more week. ID consult remains pending (2) Left sided abdominal pain: No significant findings. Supportive care. Symptomatic pain management (3) Asthma: Stable. Continue current medical management (4) Type 2 diabetes mellitus: ADA diet. Sliding scale coverage as needed. He states that he does not typically take metformin. It was ordered from his medication list and subsequently discontinued when he said he does not take it. (5) BPH w/o urinary obs/LUTS: Stable. Continue current medical management Plan Discharge back to [facility] today, November 28 Total Time Total Time Spent Total Time Spent (In Minutes): 45 minutes Discharge Plan Discharge Items Patient Disposition: [facility] Reason For Visit: RECURRENT RLE CELLULITIS Discharge Diagnosis: Recurrent right lower extremity cellulitis, failure of outpatient oral antibiotic treatment Condition on Discharge: Good Activity: Resume your previous activity Non-emergency contact: Primary Care Provider Call non-emergency contact if: your symptoms worsen Follow-up/Referrals: Yair GREENE [Primary Care Provider] - Diet: Carb Consistent or DM2 Addtl Attending Provider Instructions: Take IV Zosyn and IV daptomycin for 1 more week. Cholesterol medication remains on hold while receiving daptomycin for 1 week Pending Studies at Discharge: No Stand-Alone Forms: My [facility] [employer] Skilled Items Patient informed of condition?: Yes Discharge Level of Care: Other Communicable Disease: No Discharge Prognosis: Stable Lines: Peripheral IV Urinary Catheter: No Medications and DC Order Prescriptions: New daptomycin 350 mg recon soln 325 mg IV DAILY Rx Instructions: administer over 30 mins Zosyn in dextrose (iso-osm) 4.5 gram/100 mL piggyback 3.375 g IV Q8H 7 Days Continued metformin 1,000 mg tablet 1,000 mg PO BID aspirin 81 mg capsule 81 mg PO DAILY fluticasone propion-salmeterol [Advair Diskus] 100-50 mcg/dose Blister With Device 1 inh INHALATION BID albuterol sulfate 90 mcg/actuation Hfa Aerosol Inhaler 1 inh INHALATION QID PRN (Reason: Shortness Of Breath) amoxicillin-pot clavulanate 875-125 mg tablet 1 tab PO BID Qty: 24 0RF Rx Instructions: Stop 12/02/2023 Discontinued atorvastatin 20 mg Tablet 20 mg PO DAILY Discharge Orders: Discharge Order (Routine); Ordered 11/28/23 Ordered By: David Mackey Admission Data Admit Date/Time: 11/27/23 10:48 Attending Provider: David Mackey Admit Provider: Asif Qiuspe Primary Care Provider: aYir GREENE Other Providers: Asif Quispe; Rosita Borrero; Kristine Hagan; Darrick Aguillon; Fatou Morgan; Brooklynn Conroy; Juliette Ackerman; Coco Leon; Keren Samson Coding Level of Care Code 11990 INP/OBS DISCH >30 MIN Diagnoses Cellulitis of right leg L03.115 Left sided abdominal pain R10.9 Asthma J45.909 Type 2 diabetes mellitus E11.9 BPH w/o urinary obs/LUTS N40.0
--- NOTE | 2023-11-28 17:26 | Infectious Disease Consult ---
Date of Consultation November 28, 2023 Assessment & Plan (1) Cellulitis: (2) Failure of outpatient treatment: (3) Cellulitis of right leg: Plan Catracho Tapia is a 63-year-old man with history of T2DM, recent admission to [facility] 11/21-11/22 for RLE cellulitis (s/p vancomycin -> daptomycin/pip-tazo -> Augmentin), BPH, DMII, asthma, presenting from [facility] on 11/25/23 recurrent RLE swelling, redness, and tenderness. ID is consulted to evaluate for worsening RLE cellulitis. Pt with ongoing cellulitis despite 5 [facility], which is unusualdelayed response may be due to severity of infection, unusual pathogen (Gram-negatives), or other underlying process (e.g., abscess, osteo, septic arthritis, etc.). He did not recall any wounds/trauma to the site. Initially improved on daptomycin/pip-tazo at prior admission at [facility] and worsened again after narrowing to Augmentin. Overall, clinical presentation is c/w RLE SSTI at this time, and appears to be improving significantly after having again re-broadened to daptomycin and pip-tazo. While this is a broader regimen than typically required for cellulitis, would be reasonable to continue for an additional 7d course given the refractory nature of his course, and the potential for resistant organisms including Gram-negatives. Discussed with ID pharmacist as well who was in agreement. Note MRSA nares negative but this may be sometimes discordant with MRSA SSTI. He remains clinically well and was a febrile at presentation without leukocytosis. If RLE redness and swelling recur, would consider CT RLE at that time to evaluate for underlying abscess. If ankle redness worsens/persists, would also consider possibility of R ankle septic arthritis. Also note that there do not appear to [facility] with rigors on ~11/16. BCx obtained on re-presentation on 11/25 reassuringly NGTD. If fevers recur, would obtain BCx x2 sets. ID Problem List: 1.RLE SSTI Recommendations: - Reasonable to continue daptomycin and pip-tazo to complete an additional 7-day course at [facility] (as planned) with EOT of 12/04/23 - If RLE redness and swelling recur, would consider CT RLE at that time to evaluate for underlying abscess. If ankle redness worsens/persists, would also consider possibility of R ankle septic arthritis. - If fevers recur, would obtain BCx x2 sets Plan discussed with hospitalist. Patient to complete abx course at [facility] and will be transferring when able. Thank you for letting ID participate in the care of this patient. ID will sign o ff at this time. If questions, [facility] [phone]. Keren Samson MD, S Infectious Diseases Consultation Information Consultation was provided via telemedicine using two-way real-time interactive telecommunication between the patient and the telemedicine provider. For the duration of the visit, the provider was performing the assessment from a different facility than the patient. This includesuse of bluetooth stethoscope forauscultationperformed by the telepresenter that the telemedicine provider can hear if described in the physical exam. Photo Booth Operator contact information: Please call [facility] . (Phone Number For Physician Use Only) After establishing a telemedicine visit, patient was: Patient was verified with two unique identifiers, Patient/authorized rep acknowledged consent and understanding and Gave permission to continue telehealth session Time Spent with Patient: Initial => 55 min History of Present Illness Reason for Consultation: RLE cellulitis Attending Physician: David Mackey MD History of Present Illness Catracho Tapia is a 63-year-old man with history of T2DM, recent admission to [facility] 11/21-11/22 for RLE cellulitis (s/p vancomycin -> daptomycin/pip-tazo -> Augmentin), BPH, DMII, asthma, presenting from [facility] on 11/25/23 recurrent RLE swelling, redness, and tenderness. ID is consulted to evaluate for worsening RLE cellulitis. He had a recent admission to [facility] 11/21-11/22 for RLE cellulitis. The patient tells me that he had seemingly rapid-onset redness, pain and swelling of the RLE which began ~11/16. He developed several episodes of vomiting, and this worsened to include fevers and shaking rigors/chills, and sweating. He denies any inciting wounds, and denies any cuts/needles or other trauma to the site. He does not recall any boils/pimple lesions preceding his symptoms. He had been on IV vancom[facility] for 5 days [facility], and was subsequently admitted to [facility] on 11/21. Scanned DOC records available; I do not see whether BCx were obtained at the [facility] prior to abx. At [facility], he received daptomycin and pip-tazo with improvement. He was discharged on 11/22 with Augmentin but reports that his RLE swelling and redness worsened quickly after this. He was readmitted to [facility] on 11/25/23 with worsening RLE swelling and redness. In the ED was afebrile, WBC 6. Venous duplex negative for DVT. At the time of evaluation, the pt feels overall well and feels like he is improving. He reports that his RLE looks the best that it has looked since his symptoms started. His R ankle remains red but he denies any pain specific to the ankle. He has a history of L knee replacement and chronic lower back pain, no new/worsening symptoms at these sites. Allergies Allergy/AdvReac Type Severity Reaction Status Date / Time No Known Allergies Allergy Verified 11/25/23 15:28 Home Medications Medication Instructions Recorded Confirmed Type aspirin 81 mg capsule 81 mg PO DAILY 01/03/23 11/25/23 History metformin 1,000 mg tablet 1,000 mg PO BID 01/03/23 11/25/23 History fluticasone 100 mcg-salmeterol 50 1 inh inhalation BID 03/10/23 11/25/23 History mcg/dose blistr powdr for inhalation (Advair Diskus) albuterol sulfate 90 mcg/actuation 1 inh inhalation QID PRN Shortness 11/21/23 11/25/23 History aerosol inhaler Of Breath amoxicillin 875 mg-potassium 1 tab PO BID #24 tabs 11/22/23 11/25/23 Rx clavulanate 125 mg tablet daptomycin 350 mg intravenous 325 mg IV DAILY 11/28/23 Rx solution piperacillin-tazobactam 4.5 3.375 g (84.375 mL) IV Q8H 7 days 11/28/23 Rx gram/100 mL dextrose(iso-osm) IV #1,771.875 mL piggyback (Zosyn) Patient History Medical History BPH w/o urinary obs/LUTS Type 2 diabetes mellitus Inmate in correctional facility Xerosis cutis Mild intermittent asthma Antisocial personality disorder Opioid use disorder Surgical History No history of previous surgery none listed on [facility] record Social History Smoking Status: Former smoker Cigarettes Per Day: 1; Second Hand Exposure: No; Do You Dip or Chew Tobacco: No; Hx Alcohol Use: No Hx Substance Use: No Preferred Language: Ghanaian Communication Ability: Effective Brake Repairer Required: No Beliefs That Will Affect Care: None Current Living Situation: Other Current Living Situation Comment: [facility] Feels Safe at Home: Yes Assistive Devices: None Physical Exam Physical Exam: Exam obtained with aid of in-person telepresenter. General: Well-appearing, no acute distress HEENT: Conjunctivae non-injected, sclerae anicteric, MMM, OP clear. Resp: Respirations nonlabored. Abd: Soft, nontender, nondistended. Normal bowel sounds throughout. No masses or organomegaly. Ext: RLE with dry and flaky skin from foot up to knee. Mildly erythematous, remains moderately swollen as compared with R side. R ankle lateral aspect eleni ins more significantly erythematous but with full ROM. Very small dark pinpoint lesion on lateral ankle (?nevus or small wound). No large wounds between the toes. Skin: As above. Neuro: Alert & interactive. Grossly non-focal. Psych: Pleasant, appropriate. Results & Data Vital Signs (Past 12 Hours) Vital Signs Temp Pulse Resp BP Pulse Ox O2 Del Method 11/28/23 14:47 36.8 C 73 18 104/67 92 11/28/23 08:03 36.8 C 73 18 104/67 92 Room Air Diagnostic Findings Diagnostics: 11/25 Venous Duplex RLE: There is no sonographic evidence of deep venous thrombosis identified in the right lower extremity. Micro Summary: 11/28 MRSA nares neg 11/25 BCx x2: NGTD 11/18 BCx x2: NG Antibiotic Summary: daptomycin (11/22, 11/24 present) pip-tazo (11/21 11/22, 11/24 present) prior Augmentin 11/22 - 11/23 vancomycin ~11/17 11/21 (1) Cellulitis Laterality: right Site of cellulitis: extremity Site of cellulitis of extremity: lower extremity Qualified Code(s): L03.115 - Cellulitis of right lower limb
== END 2023-11-28 17:10 | DRG 603 ==
LOC: ED 11:01 → 3E 11:01 → SUATTDRO 14:13 → 3E 15:57

== ENCOUNTER 2023-12-09 11:06 | Inpatient (IN) ==
--- NOTE | 2023-12-09 11:49 | ED Triage Note ---
Date of Service December 09, 2023 Provider in Triage Author: Jacqueline Verduzco History of Present Illness This patient was briefly evaluated while in triage. An abbreviated physical exam was performed. This patient is a 63-year-old Male who presents to the ED for evaluation of right leg cellulitis. Pt. here for Covid-19 1.5 weeks ago. States here for cellulitis of the right leg and notes "it's infected from the IVs in reference to left forearm swelling." Pt. had fever this morning at [facility]. Physical Exam VITALS: Vitals are noted on the nurse's note and reviewed by myself. GENERAL: This is a 63 year old male, in no acute distress, nondiaphoretic, well- developed well-nourished. SKIN: Edema of the left forearm. HEAD: Normocephalic atraumatic. EYES: Conjunctivae without injection, sclerae without icterus. NECK: No JVD. LUNGS: No retractions or accessory muscle use. MUSCULOSKELETAL: Normal gait. NEURO: Patient was alert and oriented to person place and time. No focal neurological deficits. Initial orders for labs and / or imaging were placed and patient was placed in the waiting area until a bed is available. Please see further documentation for the full ED course.
[2023-12-09 12:32] LABS: Basophils # (auto) 0.06 K/uL (0.00-0.20); Eosinophils % (auto) 1.7 %; Hematocrit (blood only) 47.8 % (42.0-52.0); Hemoglobin 15.9 g/dl (14.0-18.0); Immature Granulocytes # (auto) 0.02 K/uL (0.01-0.20); Immature Granulocytes % (auto) 0.3 %; Lymphocytes # (auto) 2.46 K/uL (1.20-3.40); Lymphocytes % (auto) 41.3 %; Mean Corpuscular Hemoglobin 29.9 pg (25.0-34.0); Mean Corpuscular Hgb Conc 33.3 g/dL (32.0-36.0); Mean Platelet Volume 9.8 fL (9.4-12.4); Monocytes % (auto) 16.8 %; Neutrophils # (auto) 2.32 K/uL (1.40-6.50); Neutrophils % (auto) 38.9 %; Platelet Count 198 K/uL (130-400); RDW Coefficient of Variation 13.4 % (11.5-14.5); RDW Standard Deviation 43.8 fL (36.4-46.3); Red Blood Count 5.31 M/uL (4.70-6.10); White Blood Count 5.96 K/ul (4.8-10.8)
[2023-12-09] MEDS: SODIUM CHLORIDE 0.9% 1,000 ML IV ONE (12:35)
[2023-12-09 12:46] LABS: Creatinine Clr Calc Pharmacy 83.7 ml/min; Est GFR (African American) 91.8 ml/min; Est GFR (Non-African American) 79.2 ml/min; Potassium 4.6 mmol/L (3.5-5.1)
[2023-12-09 12:47] LABS: Albumin Globulin Ratio 0.8 (0.9-2); Albumin Level 3.9 gm/dl (3.4-5.0); Bilirubin,Total 0.8 mg/dl (0.2-1.0); C Reactive Protein 3.51 mg/dl (0-0.5); Calcium 10.1 mg/dl (8.6-10.3); Magnesium 1.9 mg/dl (1.7-2.4); Total Protein 8.9 gm/dl (6.0-8.3)
[2023-12-09 12:53] LABS: Troponin I High Sensitivity 3.3 pg/ml (0-20)
--- NOTE | 2023-12-09 12:59 | Ultrasound Report ---
US soft tissue ext ltd HISTORY: 63 years-old Male left arm pain acute left arm pain with recent IV catheter placement COMPARISON: None TECHNIQUE: Multiple real-time sonographic images of the left forearm soft tissues were obtained asses sing grayscale appearance and color flow. FINDINGS: Within the area of clinical concern there is a partially occlusive superficial venous thrombosis with in the cephalic vein measuring up to 10 cm in length. Flow is seen within the cephalic vein at the le cyndy of the antecubital fossa and distal forearm. IMPRESSION: Likely acute long segment superficial venous thrombus. ACT 112: Negative or not required by law. The above report was generated using voice recognition software. It may contain grammatical, syntax o r spelling errors. Electronically signed by: Reji Beltre M.D. 12/09/2023 12:58 PM
[2023-12-09 16:06] LABS: INR 1.1 (0.9-1.1); Partial Thromboplastin Time 29 Seconds (21-31); Prothrombin Time 12.4 Seconds (9.0-12.0)
--- NOTE | 2023-12-09 16:22 | Emergency Department Note ---
History of Present Illness General Chief complaint: Infection, Wound Stated complaint: LEFT ARM INFECTION Time Seen by Provider: 12/09/23 15:23 History of Present Illness Maximum Pain Intensity: 2 This is a 63-year-old male that presents to the emergency department via private vehicle with complaints of "left arm pain, swelling". Patient currently resides at [facility]. He is accompanied today by 2 corrections officers. The patient has been experiencing issues with the right lower extremity suspected to be cellulitis and has been here in the emergency department as well as hospital for admission as a recent and also undergoing IV antibiotic therapy at the [facility] at [facility]. He has been off of antibiotics for 2 days now. Today, while at the [facility] was noted to be hypotensive, borderline febrile and began with some left arm pain and swelling with redness and was referred here for further evaluation and management. The patient believes that the right lower extremity looks better than it has previously. Per review of the EMR the patient was seen here on 11/20/2023 and diagnosed with cellulitis of his right leg in the setting of type 2 diabetes and was admitted to the hospital. Patient then presented again to the emergency department and was diagnosed again with cellulitis as well as failure of outpatient antibiotic treatment and at that time was admitted to the hospital again. Additional history obtained by staff from [facility] when I called to [facility] to clarify patient's [facility] assessment today/gain further history. They noted patient had a temp of 100.6 F today and blood pressure of 92/57 in the setting of recent infection of the right lower extremity, specifically right ankle region that continues to still swell and cause the patient pain in addition to now left upper extremity swelling/redness/pain where a midline/IV was placed. They note that today is day 2 of not being on antibiotics as he has completed his antibiotic therapy. They note that he finished IV Zosyn as well as IV Rocephin. Home Medications Medication Instructions Recorded Confirmed Type aspirin 81 mg capsule 81 mg PO DAILY 01/03/23 12/09/23 History metformin 1,000 mg tablet 1,000 mg PO BID 01/03/23 12/09/23 History fluticasone 100 mcg-salmeterol 50 1 inh inhalation BID 03/10/23 12/09/23 History mcg/dose blistr powdr for inhalation (Advair Diskus) albuterol sulfate 90 mcg/actuation 1 inh inhalation QID PRN Shortness 11/21/23 12/09/23 History aerosol inhaler Of Breath atorvastatin 20 mg tablet 20 mg PO DAILY 12/09/23 12/09/23 History min oil-kirstin crystal-pet,w-cetyl al 1 ea topical BID 12/09/23 12/09/23 History lotion (DermaDaily lotion) Allergies Allergy/AdvReac Type Severity Reaction Status Date / Time No Known Allergies Allergy Verified 12/09/23 16:19 Past Med/Surg History Medical History BPH w/o urinary obs/LUTS Type 2 diabetes mellitus Inmate in correctional facility Xerosis cutis Mild intermittent asthma Antisocial personality disorder Opioid use disorder Surgical History No history of previous surgery none listed on [facility] record Social History Smoking Status: Current some day smoker Cigarettes Per Day: 1; Second Hand Exposure: No; Do You Dip or Chew Tobacco: No; Hx Alcohol Use: No Hx Substance Use: No Preferred Language: [place]an Communication Ability: Effective Junior Qa Analyst Required: No Beliefs That Will Affect Care: None Current Living Situation: Other Current Living Situation Comment: [facility] Feels Safe at Home: Yes Assistive Devices: None Review of Systems A total of 10 systems reviewed and were otherwise negative Physical Exam Vital Signs Vital Signs - 24 hr 12/09/23 11:48 12/09/23 15:07 12/09/23 15:29 Temperature 36.8 C Temperature Source Oral Pulse Rate 90 61 Pulse Rate [Apical] 85 Respiratory Rate 18 18 Respiratory Effort / Characteristics Non-Labored Spontaneous Respiratory Depth Normal Respiratory Pattern Regular Blood Pressure 109/71 Blood Pressure [Right Arm] 131/76 Blood Pressure Mean 83 Blood Pressure Mean [Right Arm] 94 Pulse Oximetry 93 97 Oxygen Delivery Method Room Air Room Air Sepsis Recent Fever Within 48 Hours No Sepsis New/Unexplained Change in Mental Status No Sepsis Action Taken by Nursing No Action Required VITAL SIGNS - Vital signs and nursing notes were reviewed. Stable and afebrile. GENERAL -63-year-old male appearing his stated age who is in no acute distress. Communicates well with provider and answers questions appropriately. SKIN -the right lower extremity does have some minor peeling of the epidermis. There circumferential and diffuse edema overlying the right lower extremity predominantly from the knee, distal and this is asymmetric compared to the left. Furthermore, the right medial distal ankle/foot region does reveal erythema. HEAD - NC/AT. EYES - PERRL with EOMI bilaterally. Sclera anicteric. EARS - No deformities of external structures noted on gross examination bilaterally. NOSE - Midline and without cyanosis. MOUTH/OROPHARYNX - Without perioral cyanosis. NECK - Neck with FROM. No nuchal rigidity. LUNGS - CTA CARDIAC - RRR ABDOMEN - Abdominal contour normal without pulsations or visible masses. BS normoactive all four quadrants. No tenderness, palpable masses, hepatosplenomegaly, or ascites noted. EXTREMITIES - No clubbing or peripheral cyanosis. Skin as above. There is soft tissue edema overlying the left ventral forearm area. Left radial pulse intact. Fruit Buying Grader strength of the left hand within normal limits. Right lower extremity skin as above. Minor tenderness overlying the right distal tib/fib and right proximal foot/ankle region. Right dorsalis pedis pulse within normal limits. +5/5 strength noted in UE/LE bilaterally. Extremities are well-perfused without deficit. NEUROLOGIC - Cranial nerves grossly intact. PSYCH - A&Ox3 and cooperates fully with examiner. Pt is very pleasant and interacts well with examiner. Course Administered Medications Insulin Aspart (Insulin Aspart Per Unit Charge) 0 units SC ACHS ISAIAH Stop: 01/08/24 20:59 Last Admin: 12/09/23 21:20 Dose: Not Given Documented By: TERRIE Discontinued Medications Sodium Chloride (Nss) 1,000 mls @ 999 mls/hr IV .Q1H1M ONE Stop: 12/09/23 12:50 Last Infusion: 12/09/23 20:11 Dose: Infused Documented By: Admin: 12/09/23 12:35 Dose: 999 mls/hr Documented By: JAYDA Daptomycin 325 mg/ Syringe 6.5 mls @ 3.25 mls/min IV NOW ONE; Protocol Stop: 12/09/23 18:31 Last Admin: 12/09/23 19:31 Dose: 3.25 mls/min Documented By: MARICHUY Piperacillin Sod/Tazobactam (Sod 4.5 gm/ Dextrose) 100 mls @ 200 mls/hr IV NOW ONE; Protocol Stop: 12/09/23 19:14 Last Infusion: 12/09/23 20:11 Dose: Infused Documented By: Admin: 12/09/23 19:33 Dose: 200 mls/hr Documented By: MARICHUY Ioversol (Optiray 320 125ml) 107 ml IV ONCE ONE Stop: 12/09/23 19:19 Last Admin: 12/09/23 19:20 Dose: 107 ml Documented By: MACY Medical Decision Making Laboratory Data 12/09/23 11:57 12/09/23 11:57 Lab Results 12/09/23 12/09/23 12/09/23 Range/Units 11:57 16:00 18:01 WBC 5.96 (4.8-10.8) K/ul RBC 5.31 (4.70-6.10) M/uL Hgb 15.9 (14.0-18.0) g/dl Hct 47.8 (42.0-52.0) % MCV 90.0 (80.0-100.0) fL MCH 29.9 (25.0-34.0) pg MCHC 33.3 (32.0-36.0) g/dL RDW Std Deviation 43.8 (36.4-46.3) fL RDW Coeff of Ingrid 13.4 (11.5-14.5) % Plt Count 198 (130-400) K/uL MPV 9.8 (9.4-12.4) fL Immature Gran % (Auto) 0.3 % Neut % (Auto) 38.9 % Lymph % (Auto) 41.3 % [place] % (Auto) 16.8 % Eos % (Auto) 1.7 % Baso % (Auto) 1.0 % Neut # (Auto) 2.32 (1.40-6.50) K/uL Lymph # (Auto) 2.46 (1.20-3.40) K/uL [place] # (Auto) 1.00 H (0.11-0.59) K/uL Eos # (Auto) 0.10 (0.00-0.50) K/uL Baso # (Auto) 0.06 (0.00-0.20) K/uL Immature Gran # (Auto) 0.02 (0.01-0.20) K/uL PT 12.4 H (9.0-12.0) Seconds INR 1.1 (0.9-1.1) APTT 29 (21-31) Seconds PTT Ratio 1.0 Sodium 136 (136-145) mmol/L Potassium 4.6 (3.5-5.1) mmol/L Chloride 102 (98-107) mmol/L Carbon Dioxide 28 (21-32) mmol/L Anion Gap 6 (3-11) BUN 25 H (6-23) mg/dl Creatinine 1.00 (0.6-1.4) mg/dl Est Cr Clr Drug Dosing 83.7 ml/min Est GFR ( Amer) 91.8 ml/min Est GFR (Non-Af Amer) 79.2 ml/min BUN/Creatinine Ratio 25.0 H (10-20) Glucose 99 (70-99(Fasting)) mg/dl Lactate 2.2 H* 1.1 (0.4-2.0) mmol/L Calcium 10.1 (8.6-10.3) mg/dl Magnesium 1.9 (1.7-2.4) mg/dl Total Bilirubin 0.8 (0.2-1.0) mg/dl AST 18 (13-39) U/L ALT 15 (7-52) U/L Alkaline Phosphatase 48 (34-104) U/L Troponin I High Sens 3.3 (0-20) pg/ml C-Reactive Protein 3.51 H (0-0.5) mg/dl Total Protein 8.9 H (6.0-8.3) gm/dl Albumin 3.9 (3.4-5.0) gm/dl Globulin 5.0 H (2.5-4.0) gm/dl Albumin/Globulin Ratio 0.8 L (0.9-2) Procalcitonin 0.07 (0-0.5) ng/ml Imaging Data Radiologist's Impression: Soft Tissue Ultrasound 12/09/23 11:49 US soft tissue ext ltd HISTORY: 63 years-old Male left arm pain acute left arm pain with recent IV catheter placement COMPARISON: None TECHNIQUE: Multiple real-time sonographic images of the left forearm soft tissues were obtained assessing grayscale appearance and color flow. FINDINGS: Within the area of clinical concern there is a partially occlusive superficial venous thrombosis within the cephalic vein measuring up to 10 cm in length. Flow is seen within the cephalic vein at the level of the antecubital fossa and distal forearm. IMPRESSION: Likely acute long segment superficial venous thrombus. ACT 112: Negative or not required by law. The above report was generated using voice recognition software. It may contain grammatical, syntax or spelling errors. Electronically signed by: Reji Beltre M.D. 12/09/2023 12:58 PM Foot X-Ray 12/09/23 15:39 XR foot RT min 3V routine HISTORY: 63 years-old Male RLE edema, improving infection acute pain of the right lower extremity COMPARISON: Tibia and fibula radiographs of same day TECHNIQUE: 3 views of the right foot FINDINGS: Diffuse soft tissue swelling. Demineralized appearance of the bones. 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 No acute fracture, dislocation or acute osseous erosion. Large plantar calcaneal enthesophyte. Os trigonum. IMPRESSION: Soft tissue swelling without acute osseous abnormality. ACT 112: Negative or not required by law. The above report was generated using voice recognition software. It may contain grammatical, syntax or spelling errors. Electronically signed by: Reji Beltre M.D. 12/09/2023 4:52 PM Tibia/Fibula X-Ray 12/09/23 15:39 XR tibia fibula RT 2V CLINICAL HISTORY: Right lower extremity edema, improving infection COMPARISON STUDY: None. FINDINGS: Soft tissue edema within the right lower leg. No soft tissue gas identified. No radiopaque foreign bodies. No fracture or dislocation within the right tibia or fibula. No destructive changes to suggest an osteomyelitis. Moderate osteoarthritis within the medial compartment of the right knee. Mild vascular calcifications are noted. IMPRESSION: Soft tissue edema throughout the right lower leg. No bony destructive changes to suggest an osteomyelitis. ACT 112: Negative or not required by law. Electronically signed by: Thomas Altman M.D. 12/09/2023 4:52 PM Venous Doppler Study 12/09/23 15:39 US venous doppler LE RT HISTORY: 63 years-old Male L leg edema acute pain and swelling of the lower legs COMPARISON: 11/25/2023 TECHNIQUE: Multiple real-time sonographic images of the right lower extremity deep venous structures were obtained assessing grayscale appearance, color and spectral flow. FINDINGS: Normal flow, compressibility, phasicity and augmentation. IMPRESSION: No sonographic evidence of deep venous thrombosis. ACT 112: Negative or not required by law. The above report was generated using voice recognition software. It may contain grammatical, syntax or spelling errors. Electronically signed by: Reji Beltre M.D. 12/09/2023 5:08 PM Extremity Venous Study 12/09/23 17:57 ULTRASOUND LEFT UPPER EXTREMITY VENOUS CLINICAL HISTORY: Left arm pain and swelling. COMPARISON STUDY: No priors. TECHNIQUE: Real-time, grayscale, and color Doppler sonography of the deep veins of the left upper extremity is performed. Compression and augmentation were utilized. FINDINGS: There is no sonographic evidence of deep venous thrombosis identified in the left upper extremity. The left internal jugular, axillary, and brachial veins are patent and normally compressible. Normal venous waveforms and augmentation are seen within the left subclavian vein. The basilic veins is clear. The visualized radial and ulnar veins are patent. There is occlusive superficial venous thrombosis identified in the left cephalic vein extending from the proximal to mid forearm. This measures approximately 10 cm in length. IMPRESSION: 1. There is no sonographic evidence of deep venous thrombosis identified in the left upper extremity. 2. Occlusive superficial venous thrombosis is seen in the cephalic vein within the forearm as above. ACT 112: Negative or not required by law. Electronically signed by: Osman Klein M.D. 12/09/2023 11:08 PM MDM Narrative Patient was seen and evaluated as above in room C07. Review was performed of triage nursing notes and vital signs. Patient does present during period of high volume and acuity in the emergency department and already had testing ordered from triage. He presents for evaluation of left forearm discomfort but in the setting of borderline febrile state in the [facility] today as well as hypotension at the [facility]. Patient does feel the right lower extremity has improved overall. After obtaining a thorough history and physical examination the above work up was performed. Options of care were discussed with the patient. I reviewed his testing thus far. IV fluids were ordered from triage. Labs reveal no leukocytosis or concerning anemia. No emergent metabolic disturbance. BUN mildly elevated at 25. Lactate initially elevated at 2.2 but cleared with 1 L fluid. CRP elevated at 3.51. Troponin within normal range. Procalcitonin 0.07. Blood cultures pending. COVID, flu, RSV test negative. The emergency room transfer form DC493 was reviewed as provided by the corrections officers from the [facility]. Also at 1620 HRS [facility] to clarify history/gain further history as noted here in the HPI. The patient did have an ultrasound of the left arm that was a focused soft tissue ultrasound that showed likely superficial clot. Dedicated ultrasound of the left upper extremity venous system and right lower extremity venous system ordered. In addition, x- rays of the right foot/ankle region obtained to further evaluate and these were negative for evidence of erosive change/osteomyelitis from an radiograph standpoint. At this time in the setting of the patient's vitals being abnormal at the [facility] today to include borderline febrile state in the setting of recent infection currently not on antibiotics as well as hypotension at the [facility] with persistent erythema to the right medial foot I do believe that further evaluation and management in the inpatient setting is warranted. I did discuss with the hospitalist service and will defer to them for antibiotic coverage as he has been on several antibiotics as of recent and they we will start preferred antibiotic regimen. Will note that he is not felt to be septic at the present time requiring fluid resuscitation. Patient amenable to plan of care. Please refer to further documentation regarding his stay. I did also speak with Dr. Chapa to of hematology regarding the patient's left upper extremity superficial clot. At this time we will proceed with heat, and NSAIDs if able. Case was discussed with the attending physician. GCS: 15 In the evaluation and treatment of this patient the following differential diagnoses were entertained: Cellulitis, DVT, sepsis, superficial clot, septic joint, necrotizing fasciitis, dehydration, among others Impression & Plan Superficial phlebitis of arm, Hypotension, Elevated lactic acid level, Recurrent cellulitis of lower leg Discharge Plan Visit Data Chief Complaint: Infection, Wound Stated Complaint: LEFT ARM INFECTION ED Provider: Mauricio Arguello ED Midlevel Provider: Jerrod Castillo Discharge Problem: Superficial phlebitis of arm, Hypotension, Elevated lactic acid level, Recurrent cellulitis of lower leg Patient Disposition: Admitted As Inpatient Condition: Good Discharge Instructions Interventions: ED Discharge Assessment Last Done: 12/09/23 21:53
--- NOTE | 2023-12-09 16:53 | XRay Report ---
XR foot RT min 3V routine HISTORY: 63 years-old Male RLE edema, improving infection acute pain of the right lower extremity COMPARISON: Tibia and fibula radiographs of same day TECHNIQUE: 3 views of the right foot FINDINGS: Diffuse soft tissue swelling. Demineralized appearance of the bones. Multifocal osteoarthritis, sever e within the first metatarsal phalangeal joint. No acute fracture, dislocation or acute osseous erosi on. Large plantar calcaneal enthesophyte. Os trigonum. IMPRESSION: Soft tissue swelling without acute osseous abnormality. ACT 112: Negative or not required by law. The above report was generated using voice recognition software. It may contain grammatical, syntax o r spelling errors. Electronically signed by: Reji Beltre M.D. 12/09/2023 4:52 PM
--- NOTE | 2023-12-09 16:54 | XRay Report ---
XR tibia fibula RT 2V CLINICAL HISTORY: Right lower extremity edema, improving infection COMPARISON STUDY: None. FINDINGS: Soft tissue edema within the right lower leg. No soft tissue gas identified. No radiopaque foreign bodies. No fracture or dislocation within the right tibia or fibula. No destructive changes t o suggest an osteomyelitis. Moderate osteoarthritis within the medial compartment of the right knee. Mild vascular calcifications are noted. IMPRESSION: Soft tissue edema throughout the right lower leg. No bony destructive changes to suggest an osteomyelitis. ACT 112: Negative or not required by law. Electronically signed by: Thomas Altman M.D. 12/09/2023 4:52 PM
--- NOTE | 2023-12-09 17:10 | Ultrasound Report ---
US venous doppler LE RT HISTORY: 63 years-old Male L leg edema acute pain and swelling of the lower legs COMPARISON: 11/25/2023 TECHNIQUE: Multiple real-time sonographic images of the right lower extremity deep venous structures were obtained assessing grayscale appearance, color and spectral flow. FINDINGS: Normal flow, compressibility, phasicity and augmentation. IMPRESSION: No sonographic evidence of deep venous thrombosis. ACT 112: Negative or not required by law. The above report was generated using voice recognition software. It may contain grammatical, syntax o r spelling errors. Electronically signed by: Reji Beltre M.D. 12/09/2023 5:08 PM
--- NOTE | 2023-12-09 17:59 | History & Physical Report ---
Date of Service December 09, 2023 Assessment & Plan (1) Recurrent cellulitis of lower leg: Plan: -Admit to med/tele -Currently stable and non-toxic appearing -Presented to the ED from [facility] due to ongoing RLE cellulitis, low grade temp of 100.6F, and mild hypotension of 92/57 -Venous doppler of the RLE was negative for DVT, xrays of the right ankle/tib/fib were negative for osseous involvement -On exam, the patient's RLE cellulitis is improved compared to last admission but still significant -Will restart zosyn/daptomycin for now -Blood cultures were obtained in the ED -We will obtain CTA of the RLE w/run-off to evaluate the arterial supply for possible cause of his recurrent infection -Initial lactate of 2.2 ---> 1.1 after 1L NSS in the ED -Will hold statin while on Daptomycin -WBC and procal are WNL -SQ Lovenox for DVT PPX -HH/DMII diet -AM CBC, CMP, mag (2) Superficial phlebitis of arm: Plan: -Patient noted to have a 10cm superficial phlebitis within the cephalic vein -However, this was only seen on a soft tissue US, not a full venous doppler of the LUE -We will obtain LUE venous doppler on admission to monitor for large thrombus that would require anticoagulation (3) High serum lactate: Plan: -Initial lactate elevated at 2.2 ---> 1.1 -Likely due to dehydration on arrival and mild hypotension -Currently hemodynamically stable and non-toxic appearing -Will start Daptomycin/Zosyn for treatment of his RLE cellulitis -Continue to monitor on tele for now (4) Hypotension: Plan: -Resolved -Noted to be hypotensive at 92/57 at the [facility] -Now stable after 1L NSS bolus in the ED -Will hold additional IV fluids for now as he is able to eat/drink -Continue to monitor (5) Type 2 diabetes mellitus: Plan: -Hold metformin -Monitor BSG ACHS, goal is 110-140 -Start CF of 50 ACHS for now with being insulin naive -HH/DMII diet -Adjust regimen as needed (6) BPH w/o urinary obs/LUTS: Plan: -Monitor for retention (7) Asthma: Plan: -Stable on RA -Lung sounds are clear -Incentive spirometry Plan The patient was discussed with Dr. Barraza at the time of the admission History of Present Illness Chief Complaint: Low-grade fever, hypotension, left forearm erythema/swelling Primary Care Provider: [facility] Yair Catracho Tapia is a 63yo male inmate at [facility] with history of multiple recent admissions to [facility] RLE cellulitis (S/P prolonged course of Zosyn/Daptomycin with left forearm PICC line), BPH, DMII and Asthma who presented to the [facility] ED on 12/09/23 due to concerns for hypotension, fever of 100.6, ongoing cellulitis of the RLE, and new swelling/erythema of the LUE. Per the ED staff, the patient was noted to be mildly hypotensive at 92/57 and febrile at 100.6F at the [facility]. He had progressive left forearm erythema, swelling, and pain over the past 72 hours as well. The patient was admitted to [facility] twice over the past month due to recurrent cellulitis of the RLE. He was given daptomycin/Zosyn during his last admission and a PICC line was placed in the LUE prior to discharge. He completed his course of Daptomycin/Zosyn approximately 48 hours ago. On arrival to the ED the patient was noted to be tachycardic at 90 BPM with a BP of 109/71 but otherwise stable. Labs were significant for an initial lactate of 2.2 ---> 1.1 after IV fluids, CRP of 3.51, and negative procal. Venous doppler of the RLE was negative for DVT. Xrays of the right foot/ankle/tib/fib showed soft tissue swelling but were negative for signs of osteomyelitis. Soft tissue US of the LUE was read as "partially occlusive superficial venous thrombosis within the cephalic vein measuring up to 10 cm in length.". The ED staff spoke with Dr. Chapa who did not recommend systemic anticoagulation at this time with the superficial thrombus. We were asked to admit the patient for further assessment and treatment of ongoing RLE cellulitis and further workup of the patient's LUE pain/swelling. At the time of the exam the patient was lying in bed in no acute distress. He states that he started to develop significant pain and swelling in the LUE approximately 72 hours ago. Due to the discomfort the LUE PICC line was removed and replaced with a peripheral IV just distal to the left PICC line insertion site in order to complete his course of abx. He continued to experience pain with use of the peripheral IV which is why [facility]. Regarding his RLE cellulitis, he states that it is improved compared to previous admission but has not completely resolved. He is still experiencing swelling, redness, and pain. He denies any other complaints at this time such as chest pain, SOB, abd pain, nausea, vomiting, diarrhea, dysuria, hematuria, melena, and recent trauma. Please refer to Dr. Grier's attestation for any changes to the treatment plan Allergies Allergy/AdvReac Type Severity Reaction Status Date / Time No Known Allergies Allergy Verified 12/09/23 16:19 Home Medications Medication Instructions Recorded Confirmed Type aspirin 81 mg capsule 81 mg PO DAILY 01/03/23 12/09/23 History metformin 1,000 mg tablet 1,000 mg PO BID 01/03/23 12/09/23 History fluticasone 100 mcg-salmeterol 50 1 inh inhalation BID 03/10/23 12/09/23 History mcg/dose blistr powdr for inhalation (Advair Diskus) albuterol sulfate 90 mcg/actuation 1 inh inhalation QID PRN Shortness 11/21/23 12/09/23 History aerosol inhaler Of Breath atorvastatin 20 mg tablet 20 mg PO DAILY 12/09/23 12/09/23 History min oil-kirstin crystal-pet,w-cetyl al 1 ea topical BID 12/09/23 12/09/23 History lotion (DermaDaily lotion) Past Med/Surg History Medical History BPH w/o urinary obs/LUTS Type 2 diabetes mellitus Inmate in correctional facility Xerosis cutis Mild intermittent asthma Antisocial personality disorder Opioid use disorder Surgical History No history of previous surgery none listed on SCI record Social History Smoking Status: Current some day smoker Cigarettes Per Day: 1; Second Hand Exposure: No; Do You Dip or Chew Tobacco: No; Hx Alcohol Use: No Hx Substance Use: No Preferred Language: [place] Communication Ability: Effective Pulmonary Physical Therapist Required: No Beliefs That Will Affect Care: None Current Living Situation: Other Current Living Situation Comment: [facility] Feels Safe at Home: Yes Assistive Devices: None Physical Exam Physical Exam: Physical Exam: General: In no acute distress, stated age, chronically ill appearing but non- toxic HEENT: Normocephalic, atraumatic, no scleral icterus, pupils around round, symmetrical, and reactive to light, moist mucus membranes, trachea midline, no thyromegaly Chest/Pulm: No respiratory distress, symmetrical chest expansion, clear breath sounds throughout Cardiac: RRR, no murmurs noted Abdomen: Negative for ascites and bruising, normoactive bowel sounds, soft, non-tender to palpation throughout Musculoskeletal: Symmetrical and without signs of acute trauma, upper and lower extremities with full ROM, no atrophy, spasticity, or flaccidity Extremities: Patient with swelling and erythema in the left forearm but with intact radial pulse in the BL upper extremities, RLE with increased swelling, erythema, and pain from the dorsal aspect of the right foot to the distal aspect of the right knee, patient with intact and symmetrical DP and PT pulses in the BL lower extremities Skin: As described in extremity section Neuro: Alert and oriented to person, place, month, year, and president, no focal defects, no tremors noted Psych: No acute distress, calm and cooperative during the exam Results & Data Results & Data Vital Signs (Past 12 Hours) Vital Signs Temp Pulse Pulse Resp BP BP Pulse Ox 12/09/23 15:29 61 12/09/23 15:07 85 18 131/76 97 12/09/23 11:48 36.8 C 90 18 109/71 93 O2 Del Method 12/09/23 15:29 12/09/23 15:07 Room Air 12/09/23 11:48 Room Air Laboratory Results Abnormal lab results 12/09/23 12/09/23 Range/Units 11:57 16:00 [place] # (Auto) 1.00 H (0.11-0.59) K/uL PT 12.4 H (9.0-12.0) Seconds BUN 25 H (6-23) mg/dl BUN/Creatinine Ratio 25.0 H (10-20) Lactate 2.2 H* (0.4-2.0) mmol/L C-Reactive Protein 3.51 H (0-0.5) mg/dl Total Protein 8.9 H (6.0-8.3) gm/dl Globulin 5.0 H (2.5-4.0) gm/dl Albumin/Globulin Ratio 0.8 L (0.9-2) Diagnostic Findings Soft Tissue Ultrasound 12/09/23 11:49 US soft tissue ext ltd HISTORY: 63 years-old Male left arm pain acute left arm pain with recent IV catheter placement COMPARISON: None TECHNIQUE: Multiple real-time sonographic images of the left forearm soft tissues were obtained assessing grayscale appearance and color flow. FINDINGS: Within the area of clinical concern there is a partially occlusive superficial venous thrombosis within the cephalic vein measuring up to 10 cm in length. Flow is seen within the cephalic vein at the level of the antecubital fossa and distal forearm. IMPRESSION: Likely acute long segment superficial venous thrombus. ACT 112: Negative or not required by law. The above report was generated using voice recognition software. It may contain grammatical, syntax or spelling errors. Electronically signed by: Reji Beltre M.D. 12/09/2023 12:58 PM Foot X-Ray 12/09/23 15:39 XR foot RT min 3V routine HISTORY: 63 years-old Male RLE edema, improving infection acute pain of the right lower extremity COMPARISON: Tibia and fibula radiographs of same day TECHNIQUE: 3 views of the right foot FINDINGS: Diffuse soft tissue swelling. Demineralized appearance of the bones. 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 No acute fracture, dislocation or acute osseous erosion. Large plantar calcaneal enthesophyte. Os trigonum. IMPRESSION: Soft tissue swelling without acute osseous abnormality. ACT 112: Negative or not required by law. The above report was generated using voice recognition software. It may contain grammatical, syntax or spelling errors. Electronically signed by: Reji Beltre M.D. 12/09/2023 4:52 PM Tibia/Fibula X-Ray 12/09/23 15:39 XR tibia fibula RT 2V CLINICAL HISTORY: Right lower extremity edema, improving infection COMPARISON STUDY: None. FINDINGS: Soft tissue edema within the right lower leg. No soft tissue gas identified. No radiopaque foreign bodies. No fracture or dislocation within the right tibia or fibula. No destructive changes to suggest an osteomyelitis. Moderate osteoarthritis within the medial compartment of the right knee. Mild vascular calcifications are noted. IMPRESSION: Soft tissue edema throughout the right lower leg. No bony destructive changes to suggest an osteomyelitis. ACT 112: Negative or not required by law. Electronically signed by: Thomas Altman M.D. 12/09/2023 4:52 PM Venous Doppler Study 12/09/23 15:39 US venous doppler LE RT HISTORY: 63 years-old Male L leg edema acute pain and swelling of the lower legs COMPARISON: 11/25/2023 TECHNIQUE: Multiple real-time sonographic images of the right lower extremity deep venous structures were obtained assessing grayscale appearance, color and spectral flow. FINDINGS: Normal flow, compressibility, phasicity and augmentation. IMPRESSION: No sonographic evidence of deep venous thrombosis. ACT 112: Negative or not required by law. The above report was generated using voice recognition software. It may contain grammatical, syntax or spelling errors. Electronically signed by: Reji Beltre M.D. 12/09/2023 5:08 PM ECG Additional Comments: Will obtain at the time of the admission Code Status & VTE Plan Code Status Full code VTE Prophylaxis Plan VTE Prophylaxis will be ordered: Yes Supervising Physician Co-Signing Physician Notes In General: In general is a pleasant 63-year-old male who is alert and oriented x 3 at the time my exam he is in no acute distress he interacts appropriately and pleasantly. He is accompanied by 2 armed guards at the time my evaluation. HEENT: Normocephalic atraumatic pupils are equal round and reactive to light bilaterally. No scleral icterus no conjunctival injection external auditory canals are patent septum is in the midline nose is without discharge oral mucosa is pink and moist without lesion. NECK: Supple no rigidity no lymphadenopathy no thyromegaly no carotid bruits no JVD no masses. HEART: Regular rate and rhythm I do not appreciate any ectopy or rub. No murmur. LUNGS: Clear to auscultation bilaterally and anteriorly with no evidence of adventitious sounds/wheezes rales or rhonchi. ABDOMEN: Soft nontender, no rebound, no peritoneal signs, positive bowel sounds, no appreciable organomegaly. EXTREMITIES: Intact, left upper extremity has obvious superficial thrombophlebitis in the left forearm region it is red swollen warm to the touch. Right lower extremity scar obvious acute cellulitis of the right lower extremity in the foot and ankle region extending proximal including the distal third of the tib-fib region. NEUROLOGICAL: Cranial nerves II through XII are grossly intact with no focal deficit elicited upon examination. No tremor. Assessment/plan: Complete venous duplex of the left upper extremity rule out DVT is currently pending. CTA with runoff of the right lower extremity is pending if there is no obvious vascular occlusion, and if there is no obvious evidence of osteomyelitis on the CTA with runoff MRI of the ankle should be considered to rule out an occult osteomyelitis. PG Care Time/CCT Total # of Minutes Spent Total Time Spent with Patient: Total time spent is greater than 50% in coordination of care (as documented) at patient's floor/unit and/or counseling patient: Coding [place] [address] INT INP/OBS CARE 3/75MIN Patient Type Established Medical Decision Making High Complexity Diagnoses Recurrent cellulitis of lower leg L03.119 Superficial phlebitis of arm I80.8 High serum lactate R79.89 Hypotension I95.9 Type 2 diabetes mellitus E11.9 BPH w/o urinary obs/LUTS N40.0 Asthma J45.909
[2023-12-09] MEDS ORDERED: GLUCAGON FOR INJ 1 MG VIAL SQ PRN (18:18)
[2023-12-09] MEDS ORDERED: DEXTROSE 50% 50 ML SYRINGE IV PRN (18:18)
[2023-12-09] MEDS ORDERED: GLUCOSE 40% GEL 15 GM TUBE PO PRN (18:18)
[2023-12-09] MEDS ORDERED: GLUCOSE 10 TAB/TUBE PO PRN (18:18)
[2023-12-09] MEDS ORDERED: CARBOHYDRATES FOR HYPOGLYCEMIA PO PRN (18:18)
[2023-12-09] MEDS: OPTIRAY 320 125ml IV ONE (19:20)
[2023-12-09] MEDS: DAPTOmycin 325 MG in SYRINGE 0 ML IV ONE (19:31)
[2023-12-09] MEDS: PIPER/TAZO 4.5g in D5W MINI-B 100 ML IV ONE (19:33)
--- NOTE | 2023-12-09 21:17 | CT Scan Report ---
Exam(s): CTA EXTREMITY RIGHT LOWER W/WO Contrast IV Amt: 107 ML OPTIRAY 320 EXAM: CT Angiography of the Right Lower Extremity With Intravenous Contrast CLINICAL HISTORY: Reason for exam: recurrent cellulitis of RLE. TECHNIQUE: Axial computed tomographic angiography images of the right lower extremity with intravenous contrast. CTDI is 26.12 mGy and DLP is 1379. 69 mGy-cm. Automated exposure control was utilized for the study. A dose lowering technique was utilized adhering to the principles of ALARA. MIP reconstructed images were created and reviewed. CONTRAST: Patient received 107 ML OPTIRAY 320 of IV contrast COMPARISON: None. FINDINGS: VASCULATURE: Aorta: Mild calcified atherosclerotic disease of the distal aorta with no stenosis or aneurysm. Calcified atherosclerotic disease of the right common iliac and right external iliac artery with no significant stenosis or occlusion. Atherosclerotic disease of the right internal iliac artery with no severe stenosis or occlusion. Right femoral/popliteal arteries: Diffuse calcified atherosclerotic disease through the right common femoral, superficial femoral and popliteal artery. This is more significant in the distal superficial femoral artery. No occlusion or significant stenosis. Right calf/foot arteries: Scattered diffuse calcified plaques through the trifurcation vessels, more significant in the cephalad portion below the knee otherwise normal three-vessel runoff below the ankle with visualization of plantar arch and dorsalis pedis. LOWER EXTREMITY: Bones/joints: No acute fracture. No dislocation. Degenerative disease at the level of the knee noted. Soft tissues: Nonspecific diffuse soft tissue swelling predominantly through the calf region and more significant distally and at the ankle which may indicate edema versus cellulitis. There are several varicose veins within the superficial soft tissues, more so medially. IMPRESSION: Diffuse atherosclerotic disease as described with no significant stenosis, occlusion or aneurysm seen. Three-vessel runoff below the knee. No soft tissue abscess visualized. edema versus cellulitis predominantly through the calf region. Electronically signed by: Maribel Ayala MD 12/09/23 21:16 PM
[2023-12-09] MEDS: INSULIN ASPART PER UNIT CHARGE SC SCH (21:20)
[2023-12-09 22:05] LABS: Influenza A virus by PCR Negative (Neg); Influenza B virus by PCR Negative (Neg); RSV by PCR Negative (Neg); SARS CoV2 RNA(COVID-19) Ceph NEGATIVE (Negative)
--- NOTE | 2023-12-09 23:09 | Ultrasound Report ---
ULTRASOUND LEFT UPPER EXTREMITY VENOUS CLINICAL HISTORY: Left arm pain and swelling. COMPARISON STUDY: No priors. TECHNIQUE: Real-time, grayscale, and color Doppler sonography of the deep veins of the left upper ext remity is performed. Compression and augmentation were utilized. FINDINGS: There is no sonographic evidence of deep venous thrombosis identified in the left upper ext remity. The left internal jugular, axillary, and brachial veins are patent and normally compressible. Normal venous waveforms and augmentation are seen within the left subclavian vein. The basilic veins is clear. The visualized radial and ulnar veins are patent. There is occlusive superficial venous th rombosis identified in the left cephalic vein extending from the proximal to mid forearm. This measur es approximately 10 cm in length. IMPRESSION: 1. There is no sonographic evidence of deep venous thrombosis identified in the left upper extremity. 2. Occlusive superficial venous thrombosis is seen in the cephalic vein within the forearm as above. ACT 112: Negative or not required by law. Electronically signed by: Osman Klein M.D. 12/09/2023 11:08 PM
[2023-12-09] MEDS ORDERED: ALBUTEROL HFA 8 GM INHALER INH PRN (23:14)
[2023-12-09] MEDS: FLUTICASONE/VILANTEROL 100/25MCG 14 PUFFS/INHALER INH SCH (23:59)
[2023-12-10] MEDS: PIPERACILLIN/TAZOBACTAM 4.5 GM in DEXTROSE 5% MINI-B 100 ML IV SCH
--- NOTE | 2023-12-10 00:16 | Communication Note ---
Date of Service: December 10, 2023 10 cm occlusive superficial thrombus in the LUE. Started on heparin gtt. Consider hematology consultation as mixed literature on recs for upper extremity superficial thrombus treatment. 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
[2023-12-10] MEDS ORDERED: Heparin IV Adult Wt-Based Standard *NO* INITIAL Bolus Protocol IV SCH (00:18)
[2023-12-10 01:07] LABS: ANTI-Xa, UFH(UnfractionatedHep < 0.10 IU/ml (0.3-0.7); INR 1.2 (0.9-1.1); Partial Thromboplastin Ratio 1.1; Partial Thromboplastin Time 30 Seconds (21-31); Prothrombin Time 12.8 Seconds (9.0-12.0)
[2023-12-10] MEDS: HEPARIN SODIUM/DEXTROSE 25,000 UNITS/500 ML BAG IV SCH (01:15)
[2023-12-10] MEDS ORDERED: ENOXAPARIN INJ 40 MG/0.4 ML SYR SQ SCH (06:00)
[2023-12-10 08:29] LABS: Basophils # (auto) 0.06 K/uL (0.00-0.20); Basophils % (auto) 1.3 %; Eosinophils # (auto) 0.17 K/uL (0.00-0.50); Eosinophils % (auto) 3.6 %; Hematocrit (blood only) 40.8 % (42.0-52.0); Immature Granulocytes # (auto) 0.02 K/uL (0.01-0.20); Immature Granulocytes % (auto) 0.4 %; Lymphocytes # (auto) 1.85 K/uL (1.20-3.40); Lymphocytes % (auto) 39.4 %; Mean Corpuscular Hemoglobin 30.6 pg (25.0-34.0); Mean Corpuscular Hgb Conc 34.3 g/dL (32.0-36.0); Mean Corpuscular Volume 89.1 fL (80.0-100.0); Mean Platelet Volume 9.8 fL (9.4-12.4); Monocytes # (auto) 0.64 K/uL (0.11-0.59); Monocytes % (auto) 13.6 %; Neutrophils # (auto) 1.95 K/uL (1.40-6.50); Neutrophils % (auto) 41.7 %; Platelet Count 166 K/uL (130-400); RDW Coefficient of Variation 13.7 % (11.5-14.5); RDW Standard Deviation 44.3 fL (36.4-46.3); Red Blood Count 4.58 M/uL (4.70-6.10); White Blood Count 4.69 K/ul (4.8-10.8)
[2023-12-10] MEDS: ASPIRIN 81 MG ECTAB PO SCH (08:55)
[2023-12-10 08:58] LABS: ANTI-Xa, UFH(UnfractionatedHep 0.31 IU/ml (0.3-0.7)
[2023-12-10 09:02] LABS: Potassium 3.6 mmol/L (3.5-5.1)
[2023-12-10 09:03] LABS: Albumin Globulin Ratio 0.9 (0.9-2); Albumin Level 3.4 gm/dl (3.4-5.0); BUN Creatinine Ratio 26.8 (10-20); Bilirubin,Total 0.7 mg/dl (0.2-1.0); Calcium 8.8 mg/dl (8.6-10.3); Creatinine Clr Calc Pharmacy 102.2 ml/min; Est GFR (African American) 108.3 ml/min; Est GFR (Non-African American) 93.5 ml/min; Globulin 3.9 gm/dl (2.5-4.0); Total Protein 7.3 gm/dl (6.0-8.3)
--- NOTE | 2023-12-10 10:48 | Hospitalist Progress Note ---
Date of Service December 10, 2023 Assessment & Plan (1) Recurrent cellulitis of lower leg: Plan: -Admit to med/tele -Currently stable and non-toxic appearing -Presented to the ED from [facility] due to ongoing RLE cellulitis, low grade temp of 100.6F, and mild hypotension of 92/57 -Venous doppler of the RLE was negative for DVT, xrays of the right ankle/tib/fib were negative for osseous involvement -On exam, the patient's RLE cellulitis is improved compared to last admission but still significant -Will restart zosyn/daptomycin for now -Blood cultures were obtained in the ED -We will obtain CTA of the RLE w/run-off to evaluate the arterial supply for possible cause of his recurrent infection -Initial lactate of 2.2 ---> 1.1 after 1L NSS in the ED -Will hold statin while on Daptomycin -WBC and procal are WNL -SQ Lovenox for DVT PPX -HH/DMII diet -AM CBC, CMP, mag (2) Superficial phlebitis of arm: Plan: -Patient noted to have a 10cm superficial phlebitis within the cephalic vein -LUE venous doppler reveals no evidence of deep vein thrombosis -Superficial thrombosis appears to be related to peripheral IV insertion. -In review of UpToDate, There are limited data to guide management of upper extremity superficial vein thrombosis and phlebitis of upper extremity veins. Fortunately, it appears that pulmonary embolus from superficial vein thrombosis and phlebitis is very rare. -Patient was previously treated with IV antibiotics with daptomycin and pip-tazo and discharged 11/28/23 to complete an additional 7-day course at [facility] (as planned) with EOT of 12/04/23 -Patient had an ultra sound guided IV placed in the left forearm om 11/28/2023. Superficial thrombus is most likely provoked from that intervention. Continue Heparin gtt for another 24 hours and then change to DOAC for 3 months per literature and review with IV team recommendations. I have asked the nurse to file an incident report as this is most likely secondary to the ultra sound guided IV (3) High serum lactate: Plan: -Resolved. Initial lactate elevated at 2.2 ---> 1.1 -Likely due to dehydration on arrival and mild hypotension -Currently hemodynamically stable and non-toxic appearing -Continue Daptomycin/Zosyn for treatment of his RLE cellulitis -Continue to monitor on telemetry (4) Hypotension: Plan: -Resolved -Noted to be hypotensive at 92/57 at the [facility] -Now stable after 1L NSS bolus in the ED -Patient able to eat/drink. Monitor I&Os (5) Type 2 diabetes mellitus: Plan: -Hold metformin -Monitor BSG ACHS, goal is 110-140 -HH/DMII diet -Adjust regimen as needed (6) BPH w/o urinary obs/LUTS: Plan: -Monitor for retention (7) Asthma: Plan: -Stable on room air. No bronchospasm -Good inspiratory effort -Encourage Incentive spirometry Plan Anticipate discharge back to [facility] when stable Admission and Anticipated Discharge Date Admission Date: December 09, 2023 Subjective Attending: Dr. Walker This is a 63-year-old patient that was admitted yesterday for cellulitis of the right lower extremity. Patient had a peripheral IV placed and developed occlusive superficial phlebitis within the cephalic vein of the left upper extremity. There is no evidence of deep vein thrombosis. Patient also had a lower extremity Doppler of the right lower extremity which showed no occlusive disease. Lower extremity CTA reveals diffuse atherosclerotic disease with no significant stenosis, occlusion, or aneurysm. Three-vessel runoff below the knee is appreciated. There is no evidence of soft tissue abscess. Edema versus cellulitis predominantly seen throughout the calf region of the right lower extremity. Patient was started on heparin drip. Review of Systems 2 Review of Systems: A total of 10 systems was reviewed and is negative other than as listed in the HPI Physical Exam 2 Physical Exam: GENERAL : No acute distress EYES: No icterus, gaze conjugate NOSE: No evidence of epistaxis MOUTH: No lesions or candidiasis NECK: Supple LUNGS: CTA B/L, no wheezes, rales or rhonchi HEART: Regular, rate controlled ABDOMEN: Soft, NT, ND, BS Present EXTREMITIES: No LE edema, pedal pulses intact NEURO: A&OX3 Results & Data Results & Data Vital Signs (Past 12 Hours) Vital Signs Temp Pulse Pulse Resp BP BP Pulse Ox 12/10/23 08:28 36.4 C L 67 16 110/70 95 12/10/23 03:11 36.7 C 64 18 94/58 L 95 12/09/23 23:14 37 C 66 14 136/24 L 95 12/09/23 23:14 Pulse Ox O2 Del Method O2 Del Method 12/10/23 08:28 Room Air 12/10/23 03:11 Room Air 12/09/23 23:14 Room Air 12/09/23 23:14 95 Room Air Laboratory Results Abnormal lab results 12/09/23 12/09/23 12/09/23 Range/Units 11:57 16:00 21:15 WBC (4.8-10.8) K/ul RBC (4.70-6.10) M/uL Hct (42.0-52.0) % Clayton # (Auto) 1.00 H (0.11-0.59) K/uL PT 12.4 H (9.0-12.0) Seconds INR (0.9-1.1) Heparin Anti-Xa, Unfract (0.3-0.7) IU/ml BUN 25 H (6-23) mg/dl BUN/Creatinine Ratio 25.0 H (10-20) Glucose (70-99(Fasting)) mg/dl POC Glucose 158 H (70-99) mg/dl Lactate 2.2 H* (0.4-2.0) mmol/L C-Reactive Protein 3.51 H (0-0.5) mg/dl Total Protein 8.9 H (6.0-8.3) gm/dl Globulin 5.0 H (2.5-4.0) gm/dl Albumin/Globulin Ratio 0.8 L (0.9-2) 12/10/23 12/10/23 12/10/23 Range/Units 00:22 08:08 08:11 WBC 4.69 L (4.8-10.8) K/ul RBC 4.58 L (4.70-6.10) M/uL Hct 40.8 L (42.0-52.0) % Clayton # (Auto) 0.64 H (0.11-0.59) K/uL PT 12.8 H (9.0-12.0) Seconds INR 1.2 H (0.9-1.1) Heparin Anti-Xa, Unfract < 0.10 L (0.3-0.7) IU/ml BUN (6-23) mg/dl BUN/Creatinine Ratio 26.8 H (10-20) Glucose 157 H (70-99(Fasting)) mg/dl POC Glucose 143 H (70-99) mg/dl Lactate (0.4-2.0) mmol/L C-Reactive Protein (0-0.5) mg/dl Total Protein (6.0-8.3) gm/dl Globulin (2.5-4.0) gm/dl Albumin/Globulin Ratio (0.9-2) 12/10/23 08:11 12/10/23 08:11 Diagnostic Findings Soft Tissue Ultrasound 12/09/23 11:49 US soft tissue ext ltd HISTORY: 63 years-old Male left arm pain acute left arm pain with recent IV catheter placement COMPARISON: None TECHNIQUE: Multiple real-time sonographic images of the left forearm soft tissues were obtained assessing grayscale appearance and color flow. FINDINGS: Within the area of clinical concern there is a partially occlusive superficial venous thrombosis within the cephalic vein measuring up to 10 cm in length. Flow is seen within the cephalic vein at the level of the antecubital fossa and distal forearm. IMPRESSION: Likely acute long segment superficial venous thrombus. ACT 112: Negative or not required by law. The above report was generated using voice recognition software. It may contain grammatical, syntax or spelling errors. Electronically signed by: Reji Beltre M.D. 12/09/2023 12:58 PM L Foot X-Ray 12/09/23 15:39 XR foot RT min 3V routine HISTORY: 63 years-old Male RLE edema, improving infection acute pain of the right lower extremity COMPARISON: Tibia and fibula radiographs of same day TECHNIQUE: 3 views of the right foot FINDINGS: Diffuse soft tissue swelling. Demineralized appearance of the bones. 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 No acute fracture, dislocation or acute osseous erosion. Large plantar calcaneal enthesophyte. Os trigonum. IMPRESSION: Soft tissue swelling without acute osseous abnormality. ACT 112: Negative or not required by law. The above report was generated using voice recognition software. It may contain grammatical, syntax or spelling errors. Electronically signed by: Reji Beltre M.D. 12/09/2023 4:52 PM L Tibia/Fibula X-Ray 12/09/23 15:39 XR tibia fibula RT 2V CLINICAL HISTORY: Right lower extremity edema, improving infection COMPARISON STUDY: None. FINDINGS: Soft tissue edema within the right lower leg. No soft tissue gas identified. No radiopaque foreign bodies. No fracture or dislocation within the right tibia or fibula. No destructive changes to suggest an osteomyelitis. Moderate osteoarthritis within the medial compartment of the right knee. Mild vascular calcifications are noted. IMPRESSION: Soft tissue edema throughout the right lower leg. No bony destructive changes to suggest an osteomyelitis. ACT 112: Negative or not required by law. Electronically signed by: Thomas Altman M.D. 12/09/2023 4:52 PM Venous Doppler Study 12/09/23 15:39 US venous doppler LE RT HISTORY: 63 years-old Male L leg edema acute pain and swelling of the lower legs COMPARISON: 11/25/2023 TECHNIQUE: Multiple real-time sonographic images of the right lower extremity deep venous structures were obtained assessing grayscale appearance, color and spectral flow. FINDINGS: Normal flow, compressibility, phasicity and augmentation. IMPRESSION: No sonographic evidence of deep venous thrombosis. ACT 112: Negative or not required by law. The above report was generated using voice recognition software. It may contain grammatical, syntax or spelling errors. Electronically signed by: Reji Beltre M.D. 12/09/2023 5:08 PM L Extremity Venous Study 12/09/23 17:57 ULTRASOUND LEFT UPPER EXTREMITY VENOUS CLINICAL HISTORY: Left arm pain and swelling. COMPARISON STUDY: No priors. TECHNIQUE: Real-time, grayscale, and color Doppler sonography of the deep veins of the left upper extremity is performed. Compression and augmentation were utilized. FINDINGS: There is no sonographic evidence of deep venous thrombosis identified in the left upper extremity. The left internal jugular, axillary, and brachial veins are patent and normally compressible. Normal venous waveforms and augmentation are seen within the left subclavian vein. The basilic veins is clear. The visualized radial and ulnar veins are patent. There is occlusive superficial venous thrombosis identified in the left cephalic vein extending from the proximal to mid forearm. This measures approximately 10 cm in length. IMPRESSION: 1. There is no sonographic evidence of deep venous thrombosis identified in the left upper extremity. 2. Occlusive superficial venous thrombosis is seen in the cephalic vein within the forearm as above. ACT 112: Negative or not required by law. Electronically signed by: Osman Klein M.D. 12/09/2023 11:08 PM L Lower Extremity CTA 12/09/23 18:24 Exam(s): CTA EXTREMITY RIGHT LOWER W/WO Contrast IV Amt: 107 ML OPTIRAY 320 EXAM: CT Angiography of the Right Lower Extremity With Intravenous Contrast CLINICAL HISTORY: Reason for exam: recurrent cellulitis of RLE. TECHNIQUE: Axial computed tomographic angiography images of the right lower extremity with intravenous contrast. CTDI is 26.12 mGy and DLP is 1379. 69 mGy-cm. Automated exposure control was utilized for the study. A dose lowering technique was utilized adhering to the principles of ALARA. MIP reconstructed images were created and reviewed. CONTRAST: Patient received 107 ML OPTIRAY 320 of IV contrast COMPARISON: None. FINDINGS: VASCULATURE: Aorta: Mild calcified atherosclerotic disease of the distal aorta with no stenosis or aneurysm. Calcified atherosclerotic disease of the right common iliac and right external iliac artery with no significant stenosis or occlusion. Atherosclerotic disease of the right internal iliac artery with no severe stenosis or occlusion. Right femoral/popliteal arteries: Diffuse calcified atherosclerotic disease through the right common femoral, superficial femoral and popliteal artery. This is more significant in the distal superficial femoral artery. No occlusion or significant stenosis. Right calf/foot arteries: Scattered diffuse calcified plaques through the trifurcation vessels, more significant in the cephalad portion below the knee otherwise normal three-vessel runoff below the ankle with visualization of plantar arch and dorsalis pedis. LOWER EXTREMITY: Bones/joints: No acute fracture. No dislocation. Degenerative disease at the level of the knee noted. Soft tissues: Nonspecific diffuse soft tissue swelling predominantly through the calf region and more significant distally and at the ankle which may indicate edema versus cellulitis. There are several varicose veins within the superficial soft tissues, more so medially. IMPRESSION: Diffuse atherosclerotic disease as described with no significant stenosis, occlusion or aneurysm seen. Three-vessel runoff below the knee. No soft tissue abscess visualized. edema versus cellulitis predominantly through the calf region. Electronically signed by: Maribel Ayala MD 12/09/23 21:16 PM PG Care Time/CCT Total # of Minutes Spent Total Time Spent with Patient: Total time spent is greater than 50% in coordination of care (as documented) at patient's floor/unit and/or counseling patient: Coding Diagnoses Recurrent cellulitis of lower leg L03.119 Superficial phlebitis of arm I80.8 High serum lactate R79.89 Hypotension I95.9 Type 2 diabetes mellitus E11.9 BPH w/o urinary obs/LUTS N40.0 Asthma J45.909
[2023-12-10 12:28] LABS: ANTI-Xa, UFH(UnfractionatedHep 0.35 IU/ml (0.3-0.7)
[2023-12-10] MEDS: DAPTOmycin 325 MG in SYRINGE 0 ML IV SCH (17:43)
[2023-12-10] MEDS: INFLUENZA VIRUS QUADRIVALENT VACCINE (IIV4) 0.5 ML SYR IM ONE (21:20)
[2023-12-10] MEDS: PNEUMOCOCCAL VACCINE (PCV20) 20-VAL CONJ-DIP CRM/PF 0.5 ML SYR IM ONE (21:21)
[2023-12-11 05:45] LABS: Basophils # (auto) 0.06 K/uL (0.00-0.20); Basophils % (auto) 1.1 %; Eosinophils # (auto) 0.29 K/uL (0.00-0.50); Eosinophils % (auto) 5.2 %; Hematocrit (blood only) 40.1 % (42.0-52.0); Immature Granulocytes # (auto) 0.02 K/uL (0.01-0.20); Immature Granulocytes % (auto) 0.4 %; Lymphocytes # (auto) 2.01 K/uL (1.20-3.40); Lymphocytes % (auto) 36.2 %; Mean Corpuscular Hemoglobin 30.6 pg (25.0-34.0); Mean Corpuscular Hgb Conc 34.9 g/dL (32.0-36.0); Mean Corpuscular Volume 87.7 fL (80.0-100.0); Mean Platelet Volume 10.1 fL (9.4-12.4); Monocytes # (auto) 0.75 K/uL (0.11-0.59); Monocytes % (auto) 13.5 %; Neutrophils # (auto) 2.42 K/uL (1.40-6.50); Neutrophils % (auto) 43.6 %; Platelet Count 197 K/uL (130-400); RDW Coefficient of Variation 13.6 % (11.5-14.5); RDW Standard Deviation 43.8 fL (36.4-46.3); Red Blood Count 4.57 M/uL (4.70-6.10); White Blood Count 5.55 K/ul (4.8-10.8)
[2023-12-11 06:03] LABS: ANTI-Xa, UFH(UnfractionatedHep 0.36 IU/ml (0.3-0.7)
[2023-12-11 06:05] LABS: Albumin Globulin Ratio 0.9 (0.9-2); Albumin Level 3.4 gm/dl (3.4-5.0); Bilirubin,Total 0.7 mg/dl (0.2-1.0); Creatinine Clr Calc Pharmacy 103.5 ml/min; Est GFR (African American) 108.9 ml/min; Est GFR (Non-African American) 93.9 ml/min; Globulin 3.9 gm/dl (2.5-4.0); Potassium 3.7 mmol/L (3.5-5.1); Total Protein 7.3 gm/dl (6.0-8.3)
--- NOTE | 2023-12-11 15:56 | Hospitalist Progress Note ---
Date of Service December 11, 2023 Assessment & Plan (1) Recurrent cellulitis of lower leg: Plan: -Admitted to med/tele. No lactic acidosis. Infection seems to be improving. Will transfer to med/surg. -Presented to the ED from [facility] due to ongoing RLE cellulitis, low grade temp of 100.6F, and mild hypotension of 92/57. SBP improved. Now afebrile -Venous doppler of the RLE was negative for DVT, xrays of the right ankle/tib/fib were negative for osseous involvement -Continue zosyn/daptomycin for now as infection is showing improvement. Most likely can downgrade to oral antibiotics tomorrow and discharge back to [facility] -Blood cultures were obtained in the ED with no growth to date -CTA of the RLE w/run-off with diffuse atherosclerotic disease as described with no significant stenosis, No occlusion or aneurysm seen. Three-vessel runoff below the knee. No evidence of abcess -Initial lactate of 2.2 ---> 1.1 after 1L NSS in the ED -Will hold statin while on Daptomycin -WBC and procal are WNL -SQ Lovenox for DVT PPX -HH/DMII diet -Follow serial CBC, CMP, mag (2) Superficial phlebitis of arm: Plan: -Patient noted to have a 10cm superficial phlebitis within the cephalic vein -LUE venous doppler reveals no evidence of deep vein thrombosis -Superficial thrombosis appears to be related to peripheral ultra sound guided IV insertion on 11/28/2023. -In review of UpToDate, There are limited data to guide management of upper extremity superficial vein thrombosis and phlebitis of upper extremity veins. Fortunately, it appears that pulmonary embolus from superficial vein thrombosis and phlebitis is very rare. -Patient was previously treated with IV antibiotics with daptomycin and pip-tazo and discharged 11/28/23 [facility] with EOT of 12/04/23 -Patient had an ultra sound guided IV placed in the left forearm om 11/28/2023. Superficial thrombus is most likely provoked from that intervention. Continue Heparin gtt for another 24 hours and then change to DOAC for 3 months per literature and review with IV team recommendations. I have asked the nurse to file an incident report as this is most likely secondary to the ultra sound guided IV -Will convert to DOAC 12/12/2023 - discussed with case management. Will need to check with [facility] to see which DOAC is covered. (3) High serum lactate: Plan: -Resolved. Initial lactate elevated at 2.2 ---> 1.1 -Likely due to dehydration on arrival and mild hypotension -Currently hemodynamically stable and non-toxic appearing -Continue Daptomycin/Zosyn for treatment of his RLE cellulitis. May be able to downgrade to PO tomorrow. -Will downgrade to med/surg today (4) Hypotension: Plan: -Resolved -Noted to be hypotensive at 92/57 at the [facility] -Now stable after 1L NSS bolus in the ED -Patient able to eat/drink. Monitor I&Os (5) Type 2 diabetes mellitus: Plan: -Hold metformin -Monitor BSG ACHS, goal is 110-140 -HH/DMII diet -Adjust regimen as needed (6) BPH w/o urinary obs/LUTS: Plan: -Monitor for retention (7) Asthma: Plan: -Stable on room air. No bronchospasm -Good inspiratory effort -Encourage Incentive spirometry Plan Anticipate discharge back to [facility] when stable. Will need DOAC on discharge Admission and Anticipated Discharge Date Admission Date: December 09, 2023 Subjective Attending: Dr. Walker This is a 63-year-old patient that was admitted 12/09/2023 for cellulitis of the right lower extremity. Patient had a peripheral IV placed and developed occlusive superficial phlebitis within the cephalic vein of the left upper extremity. There is no evidence of deep vein thrombosis. Patient also had a lower extremity Doppler of the right lower extremity which showed no occlusive disease. Lower extremity CTA reveals diffuse atherosclerotic disease with no significant stenosis, occlusion, or aneurysm. Three-vessel runoff below the knee is appreciated. There is no evidence of soft tissue abscess. Edema versus cellulitis predominantly seen throughout the calf region of the right lower extremity. Patient was started on heparin drip. Anticipated that patient can be placed on DOAC at [facility] Patient still has some fullness to his left forearm with tenderness. No sign of infection. Tender to palpation. No fever or chills. Leg seems a little better but also [employer]. Erythema is improving. No leukocytosis with am labs Review of Systems 2 Review of Systems: A total of 10 systems was reviewed and is negative other than as listed in the HPI Physical Exam 2 Physical Exam: GENERAL : No acute distress EYES: No icterus, gaze conjugate NOSE: No evidence of epistaxis MOUTH: No lesions or candidiasis NECK: Supple LUNGS: CTA B/L, no wheezes, rales or rhonchi HEART: Regular, rate controlled ABDOMEN: Soft, NT, ND, BS Present EXTREMITIES: +1 B/L LE edema, pedal pulses intact and equal bilaterally. Erythema improving. Skin temperature equal to touch bilaterally. No open wounds. LUE tender to touch. No evidence of infection. Good radial and ulnar pulses. NEURO: A&OX3 Results & Data Results & Data Vital Signs (Past 12 Hours) Vital Signs Temp Pulse Pulse Resp BP Pulse Ox O2 Del Method 12/11/23 15:00 68 12/11/23 11:40 36.8 C 68 18 94/53 L 93 Room Air 12/11/23 08:01 36.6 C 86 18 94/54 L 97 Room Air 12/11/23 07:30 69 Laboratory Results 12/11/23 04:48 12/11/23 04:48 PG Care Time/CCT Total # of Minutes Spent Total Time Spent with Patient: Total time spent is greater than 50% in coordination of care (as documented) at patient's floor/unit and/or counseling patient: 36 minutes including discussion regarding outpatient management at the senior care Coding Level of Care Code 83677 SUB INP/OBS CARE 2/35MIN Diagnoses Recurrent cellulitis of lower leg L03.119 Superficial phlebitis of arm I80.8 High serum lactate R79.89 Hypotension I95.9 Type 2 diabetes mellitus E11.9 BPH w/o urinary obs/LUTS N40.0 Asthma J45.909 Time Spent (min) 36
[2023-12-12 07:28] LABS: Basophils # (auto) 0.05 K/uL (0.00-0.20); Eosinophils # (auto) 0.28 K/uL (0.00-0.50); Eosinophils % (auto) 5.3 %; Hematocrit (blood only) 41.2 % (42.0-52.0); Hemoglobin 13.9 g/dl (14.0-18.0); Immature Granulocytes # (auto) 0.01 K/uL (0.01-0.20); Immature Granulocytes % (auto) 0.2 %; Lymphocytes # (auto) 2.01 K/uL (1.20-3.40); Lymphocytes % (auto) 38.4 %; Mean Corpuscular Hemoglobin 30.4 pg (25.0-34.0); Mean Corpuscular Hgb Conc 33.7 g/dL (32.0-36.0); Mean Corpuscular Volume 90.2 fL (80.0-100.0); Mean Platelet Volume 9.8 fL (9.4-12.4); Monocytes # (auto) 0.69 K/uL (0.11-0.59); Monocytes % (auto) 13.2 %; Neutrophils % (auto) 41.9 %; Platelet Count 191 K/uL (130-400); RDW Coefficient of Variation 13.7 % (11.5-14.5); RDW Standard Deviation 44.3 fL (36.4-46.3); Red Blood Count 4.57 M/uL (4.70-6.10); White Blood Count 5.24 K/ul (4.8-10.8)
[2023-12-12 07:48] LABS: ANTI-Xa, UFH(UnfractionatedHep 0.35 IU/ml (0.3-0.7)
[2023-12-12 07:49] LABS: Albumin Globulin Ratio 0.9 (0.9-2); Albumin Level 3.4 gm/dl (3.4-5.0); BUN Creatinine Ratio 18.4 (10-20); Bilirubin,Total 0.6 mg/dl (0.2-1.0); Calcium 9.1 mg/dl (8.6-10.3); Creatinine Clr Calc Pharmacy 86.9 ml/min; Est GFR (African American) 94.1 ml/min; Est GFR (Non-African American) 81.2 ml/min; Globulin 3.8 gm/dl (2.5-4.0); Total Protein 7.2 gm/dl (6.0-8.3)
[2023-12-12 15:15] LABS: C Reactive Protein 1.96 mg/dl (0-0.5)
--- NOTE | 2023-12-12 15:34 | Discharge Summary ---
Date of Service December 12, 2023 Admission HPI Per Admitting Provider Catracho Tapia is a 63yo male inmate at [facility] with history of multiple recent admissions to [facility] RLE cellulitis (S/P prolonged course of Zosyn/Daptomycin with left forearm PICC line), BPH, DMII and Asthma who presented to the [facility] ED on 12/09/23 due to concerns for hypotension, fever of 100.6, ongoing cellulitis of the RLE, and new swelling/erythema of the LUE. Per the ED staff, the patient was noted to be mildly hypotensive at 92/57 and febrile at 100.6F at the [facility]. He had progressive left forearm erythema, swelling, and pain over the past 72 hours as well. The patient was admitted to [facility] twice over the past month due to recurrent cellulitis of the RLE. He was given daptomycin/Zosyn during his last admission and a PICC line was placed in the LUE prior to discharge. He completed his course of Daptomycin/Zosyn approximately 48 hours ago. On arrival to the ED the patient was noted to be tachycardic at 90 BPM with a BP of 109/71 but otherwise stable. Labs were significant for an initial lactate of 2.2 ---> 1.1 after IV fluids, CRP of 3.51, and negative procal. Venous doppler of the RLE was negative for DVT. Xrays of the right foot/ankle/tib/fib showed soft tissue swelling but were negative for signs of osteomyelitis. Soft tissue US of the LUE was read as "partially occlusive superficial venous thrombosis within the cephalic vein measuring up to 10 cm in length.". The ED staff spoke with Dr. Chapa who did not recommend systemic anticoagulation at this time with the superficial thrombus. We were asked to admit the patient for further assessment and treatment of ongoing RLE cellulitis and further workup of the patient's LUE pain/swelling. At the time of the exam the patient was lying in bed in no acute distress. He states that he started to develop significant pain and swelling in the LUE approximately 72 hours ago. Due to the discomfort the LUE PICC line was removed and replaced with a peripheral IV just distal to the left PICC line insertion site in order to complete his course of abx. He continued to experience pain with use of the peripheral IV which is why [facility]. Regarding his RLE cellulitis, he states that it is improved compared to previous admission but has not completely resolved. He is still experiencing swelling, redness, and pain. He denies any other complaints at this time such as chest pain, SOB, abd pain, nausea, vomiting, diarrhea, dysuria, hematuria, melena, and recent trauma. Admission Exam Per Admitting Provider Superficial venous thrombosis LUE cephalic vein, low grade fever resolved, RLE cellulitis, RLE venous stasis disease Principal Diagnosis fever, SVT left cephalic vein, line associated, resolving/resolved RLE cellulitis, RLE venous stasis disease Discharge Exam PHYSICAL EXAMINATION Last 24h vital signs reviewed, see documentation in flowsheet General: comfortable appearing, no distress HEENT: Normocephalic, atraumatic, pupils round and equal, sclerae anicteric, no conjunctival injection, moist mucus membranes Lungs: Normal respiratory effort. Clear to auscultation bilaterally. No RRW Heart: Regular rate and rhythm, no murmurs. No JVD Abdomen: Soft, nondistended. Bowel sounds present. Extremities: Warm, dry, well-perfused. RLE with mild edema below the knee, no significant erythema and no warmth, dusky pink appearance without demarcation consistent with venous stasis disease and/or resolving cellulitis, dermatitis with flaky skin, tolerates full ROM of ankle joint without pain. varicose veins present RLE visible near the ankle. Neuro: Alert and oriented x 4, face symmetric, moves 4 extremities well Psych: Normal affect and behavior Discharge Data Allergies Allergy/AdvReac Type Severity Reaction Status Date / Time No Known Allergies Allergy Verified 12/09/23 16:19 Consultations 12/09/23 17:57 ED Decision to Admit Stat Ordered Studies 12/09/23 11:49 US soft tissue ext ltd Routine 12/09/23 15:39 US venous doppler LE RT Stat 12/09/23 17:57 US venous doppler UE LT Stat 12/09/23 18:24 CTA LE RT w and wo if don [CT angio LE RT w inc wo if don] Urgent Soft Tissue Ultrasound 12/09/23 11:49 US soft tissue ext ltd HISTORY: 63 years-old Male left arm pain acute left arm pain with recent IV catheter placement COMPARISON: None TECHNIQUE: Multiple real-time sonographic images of the left forearm soft tissues were obtained assessing grayscale appearance and color flow. FINDINGS: Within the area of clinical concern there is a partially occlusive superficial venous thrombosis within the cephalic vein measuring up to 10 cm in length. Flow is seen within the cephalic vein at the level of the antecubital fossa and distal forearm. IMPRESSION: Likely acute long segment superficial venous thrombus. ACT 112: Negative or not required by law. The above report was generated using voice recognition software. It may contain grammatical, syntax or spelling errors. Electronically signed by: Reji Beltre M.D. 12/09/2023 12:58 PM Foot X-Ray 12/09/23 15:39 XR foot RT min 3V routine HISTORY: 63 years-old Male RLE edema, improving infection acute pain of the right lower extremity COMPARISON: Tibia and fibula radiographs of same day TECHNIQUE: 3 views of the right foot FINDINGS: Diffuse soft tissue swelling. Demineralized appearance of the bones. 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 No acute fracture, dislocation or acute osseous erosion. Large plantar calcaneal enthesophyte. Os trigonum. IMPRESSION: Soft tissue swelling without acute osseous abnormality. ACT 112: Negative or not required by law. The above report was generated using voice recognition software. It may contain grammatical, syntax or spelling errors. Electronically signed by: Reji Beltre M.D. 12/09/2023 4:52 PM Tibia/Fibula X-Ray 12/09/23 15:39 XR tibia fibula RT 2V CLINICAL HISTORY: Right lower extremity edema, improving infection COMPARISON STUDY: None. FINDINGS: Soft tissue edema within the right lower leg. No soft tissue gas identified. No radiopaque foreign bodies. No fracture or dislocation within the right tibia or fibula. No destructive changes to suggest an osteomyelitis. Moderate osteoarthritis within the medial compartment of the right knee. Mild vascular calcifications are noted. IMPRESSION: Soft tissue edema throughout the right lower leg. No bony destructive changes to suggest an osteomyelitis. ACT 112: Negative or not required by law. Electronically signed by: Thomas Altman M.D. 12/09/2023 4:52 PM Venous Doppler Study 12/09/23 15:39 US venous doppler LE RT HISTORY: 63 years-old Male L leg edema acute pain and swelling of the lower legs COMPARISON: 11/25/2023 TECHNIQUE: Multiple real-time sonographic images of the right lower extremity deep venous structures were obtained assessing grayscale appearance, color and spectral flow. FINDINGS: Normal flow, compressibility, phasicity and augmentation. IMPRESSION: No sonographic evidence of deep venous thrombosis. ACT 112: Negative or not required by law. The above report was generated using voice recognition software. It may contain grammatical, syntax or spelling errors. Electronically signed by: Reji Beltre M.D. 12/09/2023 5:08 PM Extremity Venous Study 12/09/23 17:57 ULTRASOUND LEFT UPPER EXTREMITY VENOUS CLINICAL HISTORY: Left arm pain and swelling. COMPARISON STUDY: No priors. TECHNIQUE: Real-time, grayscale, and color Doppler sonography of the deep veins of the left upper extremity is performed. Compression and augmentation were utilized. FINDINGS: There is no sonographic evidence of deep venous thrombosis identified in the left upper extremity. The left internal jugular, axillary, and brachial veins are patent and normally compressible. Normal venous waveforms and augmentation are seen within the left subclavian vein. The basilic veins is clear. The visualized radial and ulnar veins are patent. There is occlusive superficial venous thrombosis identified in the left cephalic vein extending from the proximal to mid forearm. This measures approximately 10 cm in length. IMPRESSION: 1. There is no sonographic evidence of deep venous thrombosis identified in the left upper extremity. 2. Occlusive superficial venous thrombosis is seen in the cephalic vein within the forearm as above. ACT 112: Negative or not required by law. Electronically signed by: Osman Klein M.D. 12/09/2023 11:08 PM Lower Extremity CTA 12/09/23 18:24 Exam(s): CTA EXTREMITY RIGHT LOWER W/WO Contrast IV Amt: 107 ML OPTIRAY 320 EXAM: CT Angiography of the Right Lower Extremity With Intravenous Contrast CLINICAL HISTORY: Reason for exam: recurrent cellulitis of RLE. TECHNIQUE: Axial computed tomographic angiography images of the right lower extremity with intravenous contrast. CTDI is 26.12 mGy and DLP is 1379. 69 mGy-cm. Automated exposure control was utilized for the study. A dose lowering technique was utilized adhering to the principles of ALARA. MIP reconstructed images were created and reviewed. CONTRAST: Patient received 107 ML OPTIRAY 320 of IV contrast COMPARISON: None. FINDINGS: VASCULATURE: Aorta: Mild calcified atherosclerotic disease of the distal aorta with no stenosis or aneurysm. Calcified atherosclerotic disease of the right common iliac and right external iliac artery with no significant stenosis or occlusion. Atherosclerotic disease of the right internal iliac artery with no severe stenosis or occlusion. Right femoral/popliteal arteries: Diffuse calcified atherosclerotic disease through the right common femoral, superficial femoral and popliteal artery. This is more significant in the distal superficial femoral artery. No occlusion or significant stenosis. Right calf/foot arteries: Scattered diffuse calcified plaques through the trifurcation vessels, more significant in the cephalad portion below the knee otherwise normal three-vessel runoff below the ankle with visualization of plantar arch and dorsalis pedis. LOWER EXTREMITY: Bones/joints: No acute fracture. No dislocation. Degenerative disease at the level of the knee noted. Soft tissues: Nonspecific diffuse soft tissue swelling predominantly through the calf region and more significant distally and at the ankle which may indicate edema versus cellulitis. There are several varicose veins within the superficial soft tissues, more so medially. IMPRESSION: Diffuse atherosclerotic disease as described with no significant stenosis, occlusion or aneurysm seen. Three-vessel runoff below the knee. No soft tissue abscess visualized. edema versus cellulitis predominantly through the calf region. Electronically signed by: Maribel Ayala MD 12/09/23 21:16 PM 12/12/23 06:40 12/12/23 06:40 Remained afebrile throughout WBC 6 in ED, remained normal, normal diff CRP 3.5-->2 Lactate 2.2-->1 Procalcitonin 0.07 Blood cultures x 2 sets 12/09 negative to date (blood cultures 11/20, 11/21, 11/25 finalized negative) COVID/flu/RSV negative MRSA nares negative 01/07, 11/28, 12/10 Hospital Course (1) Recurrent cellulitis of lower leg: -On exam, the patient's RLE cellulitis was improved compared to last admission but described as still significant on admission 12/09. Treated with pip-tazo and daptomycin -Venous doppler of the RLE was negative for DVT, xrays of the right ankle/tib/fib were negative for osseous involvement and fractures -obtained CTA of the RLE w/run-off - see above, has PAD but no stenoses or occlusions -CRP was mildly elevated and improved, minimally elevated lactate resolved with IVF in ED, procalcitonin negative, blood cultures NGTD -on exam 12/12 I do not see ongoing cellulitis - has resolved, do not think further antibiotics are necessary, consider oral clindamycin or augmentin if further antibiotics warranted -primarily at this time appears to be venous stasis disease, recommend elevation, compression stocking or FRANDY wrap, emollient for stasis dermatitis -has good ROM at ankle with no pain and septic joint unlikely (2) Superficial phlebitis of arm: -Patient noted to have a 10cm superficial phlebitis within the cephalic vein, this was provoked by PICC which had previously been removed -ED discussed with Dr. Chapa (anticoagulation clinic) who recommended no anticoagulation for UE SVT, however, he was treated with heparin drip by the inpatient team -inflammation and pain in LUE appears to have resolved as of 12/12 -can consider oral anticoagulation for cephalic SVT for 3 weeks - 3 mo to improve symptoms however, however, I do not typically anticoagulate for this indication, discussed with physician at [facility] who stated same - that he would not anticoagulate for SVT, thus heparin was stopped. -it is exceedingly unlikely to embolize especially in a patient without hypercoagulable state such as malignancy and since offending line was removed (3) Hypotension: -Noted to be hypotensive at 92/57 at the [facility] -resolved after 1L NSS bolus in the ED -eating and drinking well (4) Type 2 diabetes mellitus: -resume outpatient medications, well-controlled (5) BPH w/o urinary obs/LUTS: -Monitor for retention (6) Asthma: -Stable on RA, not in exacerbation -Lung sounds are clear -Incentive spirometry Plan I reviewed past imaging in our system - he does have evidence of cirrhosis radiographically on abdominal CT from 12/2022 with 'possible cirrhotic liver' and perigastric varices, no hepatic lesions. He states he had a heavy drinking history in this past. This may predispose him to leg edema. Consider low dose aldactone (12.5 mg) if RLE edema not responding to compression/elevation and remains troublesome. LFT including bilirubin and INR were normal. PAD of RLE without stenoses or occlusions on CTA of leg -continue risk factor modification for ASCVD -aspirin, diabetic control, hyperlipidemia screening if indicated Discussed plan of care with physician at [facility] Yair Singh Total Time Total Time Spent Total Time Spent (In Minutes): I personally spent: 40 minutes today on clinical care activities including: reviewing chart notes and vital signs reviewing labs reviewing studies examining and counseling the patient calling physcian at receiving facility writing orders documentation Discharge Plan Discharge Items [facility] Reason For Visit: RLE CELLULITIS, LEFT UE PHLEBITIS, HYPOTENSION Discharge Diagnosis: LUE superficial venous thrombosis, RLE cellulitis, RLE venous stasis disease Condition on Discharge: Good Activity: Resume your previous activity Non-emergency contact: Primary Care Provider Call non-emergency contact if: you have any medication questions, your symptoms worsen and you have a fever Follow-up/Referrals: Yair GREENE [Primary Care Provider] - Diet: Carb Consistent or DM2 Addtl Attending Provider Instructions: Fever prior to admission - did not recur, unclear source, possibly related to inflammation from superficial venous thrombosis versus RLE cellulitis Possible recurrent RLE cellulitis vs more likely RLE venous stasis disease. Recent RLE cellulitis. -recommend elevating RLE when at rest, compression stocking or FRANDY wrap for venous stasis -observe off antibiotics -if further antibiotics necessary consider course of oral clindamycin (covers most MRSA and gram negatives well) or augmentin Superficial venous thrombosis of LUE cephalic vein - 10 cm, line associated -anticoagulated while in hospital and inflammation resolved -hot compresses PRN -can consider anticoagulation with DOAC if remaining symptomatic, however, very unlikely to embolize PAD of RLE without stenoses or occlusions on CTA of leg -continue risk factor modification for ASCVD -aspirin, diabetic control, hyperlipidemia screening if indicated Pending Studies at Discharge: Yes Studies:: blood cultures NGTD at >48h Stand-Alone Forms: My [facility] Skilled Items Patient informed of condition?: Yes Discharge Level of Care: Other Communicable Disease: No Discharge Prognosis: Improving Lines: None Urinary Catheter: No Medications and DC Order Prescriptions: Continued metformin 1,000 mg tablet 1,000 mg PO BID aspirin 81 mg capsule 81 mg PO DAILY fluticasone propion-salmeterol [Advair Diskus] 100-50 mcg/dose Blister With Device 1 inh INHALATION BID albuterol sulfate 90 mcg/actuation Hfa Aerosol Inhaler 1 inh INHALATION QID PRN (Reason: Shortness Of Breath) atorvastatin 20 mg Tablet 20 mg PO DAILY DermaDaily Lotion 1 ea TOPICAL BID Rx Instructions: apply to both lower extremities Discharge Orders: Discharge Order (Routine); Ordered 12/12/23 Ordered By: Coco Walker Admission Data Admit Date/Time: 12/09/23 18:18 Attending Provider: Coco Walker Admit Provider: Juan Carlos Barraza Primary Care Provider: Yair GREENE Other Providers: Osman Blanco; Juan Carlos Barraza Coding Level of Care Code 39735 INP/OBS DISCH >30 MIN Diagnoses Recurrent cellulitis of lower leg L03.119 Superficial phlebitis of arm I80.8 Hypotension I95.9 Type 2 diabetes mellitus E11.9 BPH w/o urinary obs/LUTS N40.0 Asthma J45.909
[2023-12-12] MEDS ORDERED: RIVAROXABAN 15 MG TAB PO SCH (21:00)
== END 2023-12-12 17:47 | DRG 603 ==
LOC: ED 11:06 → SUATTDRO 18:18 → 2W 18:18 → 3E 12-11 17:16